=== PATIENT | female | born 1955 | race Caucasian/White ===

== ENCOUNTER → 2020-07-11 07:51 | Outpatient (BNVA) | payer MEDICARE, OTHER, SELFPAY | PROVIDERS: PCP Family Medicine; Visit Provider Family Medicine | DX: G37.9 Demyelinating disease of central nervous system, unspecified (principal); L89.323 Pressure ulcer of left buttock, stage 3 | CPT/HCPCS: 80053 ==

== ENCOUNTER 2020-07-18 06:00 | Outpatient (RCR) | payer MEDICARE, OTHER, SELFPAY | END 2020-07-25 23:59 | disposition home or self-care (01) | LOC: GPT 06:00 | PROVIDERS: PCP Family Medicine; Referring Provider Family Medicine; Visit Provider Family Medicine | DX: G37.9 Demyelinating disease of central nervous system, unspecified (principal) | CPT/HCPCS: 97032; 97110; 97112; 97161; 97530 ==

== ENCOUNTER 2020-07-26 06:00 | Outpatient (RCR) | payer MEDICARE, OTHER, SELFPAY | END 2020-08-24 23:59 | disposition home or self-care (01) | LOC: GPT 06:00 | PROVIDERS: PCP Family Medicine; Referring Provider Family Medicine; Visit Provider Family Medicine | DX: G37.9 Demyelinating disease of central nervous system, unspecified (principal) | CPT/HCPCS: 97110; 97112; 97116; 97164; 97530; 97760 ==

== ENCOUNTER → 2020-08-16 15:16 | Outpatient (BNVA) | payer MEDICARE, OTHER, SELFPAY | PROVIDERS: PCP Family Medicine; Visit Provider Nurse Practitioner Family | DX: R73.09 Other abnormal glucose (principal); L89.502 Pressure ulcer of unspecified ankle, stage 2; L89.312 Pressure ulcer of right buttock, stage 2 | CPT/HCPCS: 83036 ==

== ENCOUNTER → 2020-12-05 08:03 | Outpatient (BNVA) | payer MEDICARE, OTHER, SELFPAY | PROVIDERS: PCP Family Medicine; Visit Provider Specialist | DX: G95.0 Syringomyelia and syringobulbia (principal); G80.1 Spastic diplegic cerebral palsy; M54.9 Dorsalgia, unspecified; M54.2 Cervicalgia; F17.210 Nicotine dependence, cigarettes, uncomplicated | CPT/HCPCS: 99205 ==

== ENCOUNTER 2020-12-17 14:28 | Outpatient (CLI) | payer MEDICARE, OTHER, SELFPAY ==
--- NOTE | 2020-12-17 15:15 | MR_ITS ---
WS: [id number] MRI THORACIC SPINE WITHOUT CONTRAST TECHNIQUE: Sagittal T1, T2 and STIR imaging. Axial T2 imaging. Noncontrast imaging obtained. 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 FINDINGS: Mild thoracic curve. Moderate thoracic kyphosis. Bulbous syrinx within the thoracic cord extending fr om T2 through the conus. Associated marked thinning of the cord parenchyma. Irregular syrinx with sep tations in the mid and lower thoracic cord. Syrinx measures 6 x 6 mm in maximum AP by transverse dime nsion at the T5 level. Suggestion of dural scarring with adhesions in the lower thoracic canal. No acute compression fractures. Degenerative arthritis worse at T10-T11 with endplate sclerosis and l oss of disc space height. Tiny disc protrusions at T7-T11 with spondylitic changes. No high-grade dale tral canal stenosis. Mild central canal stenosis T10-11. Moderate facet arthropathy in the lower thor acic spine. Mild to moderate bony foraminal narrowing worse at T9-T10, bilateral T10-11 worse in the right, and r ight T11-12. MR/MR thoracic spin wo con* [id number] IMPRESSION: 1. Mild thoracic curve. Mild thoracic kyphosis. No acute compression fractures . 2. Bulbous syrinx extending from T2 through the conus with peripheral cord atr ophy. 3. Syrinx measures 6 x 6 mm AP by transverse at the T5 level in maximum dimens ion. 4. Irregular syrinx in the mid and distal thoracic cord with suggestion of dur al and arachnoid adhesions. Recommend correlation with history of prior trauma or thoracic cord tumor/treatment-related changes. 5. Degenerative disc disease worse at T10-T11 with endplate sclerosis and mild central canal stenosis. 6. Moderate facet arthropathy lower thoracic spine. 7. Mild to moderate bony foraminal narrowing described above.
--- NOTE | 2020-12-17 16:00 | MR_ITS ---
WS: [id number] MRI CERVICAL SPINE NONCONTRAST TECHNIQUE: Sagittal T1, T2 and STIR imaging. Axial T2, gradient, and fiesta imaging. 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 FINDINGS: Straightening of the normal cervical lordosis. Moderate spondylitic changes. Disc osteophyte complexe s worse at C3-C4 C4-C5 and C5-C6 with moderate central canal stenosis. Cord signal in the cervical sp ine is normal. Syrinx well be discussed on the thoracic spine MRI C2-C3: Mild left and no significant right foraminal narrowing. Spinal canal is patent. C3-C4: Disc osteophyte complex with moderate central canal stenosis and slight contact of the cervica l cord. Moderate bilateral bony foraminal narrowing. C4-C5: Disc osteophyte complex with endplate ridging. Moderate central canal stenosis. Moderate to se clark bilateral bony foraminal narrowing. Slight indentation on the cervical cord. C5-C6: Disc osteophyte complex with endplate ridging. Moderate central canal stenosis. Severe right g reater than left bony foraminal narrowing. Slight indentation on the cervical cord. C6-C7: Disc osteophyte complex with endplate ridging. Severe left and mild right bony foraminal narro wing. Shallow left pericentral protrusion. Spinal canal is patent. C7-T1: Disc osteophytic ridging eccentric to the left. Moderate left and no significant right foramin al narrowing. Spinal canal is patent. Small central disc protrusion T1-2 with slight effacement of the ventral thecal sac. Mild bilateral f oraminal narrowing. Small central protrusion T2-3. MR/MR cervical spin wo con* [id number] IMPRESSION: 1. Straightening of the normal cervical lordosis. Moderate spondylitic changes . 2. Moderate central canal stenosis C3-C4 C4-C5 and C5-C6 due to disc osteophyt e complexes with slight indentation on cervical cord. 3. Multilevel moderate to severe bony foraminal narrowing worse at bilateral C 3-4, bilateral C4-5, left C5-C6 and left C6-7.
--- NOTE | 2020-12-17 16:45 | MR_ITS ---
WS: [id number] MRI LUMBAR SPINE NONCONTRAST TECHNIQUE: Sagittal T1, T2 and STIR imaging. Axial T1 and T2 imaging. 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 FINDINGS: Counting performed from the craniocervical junction with only 4 lumbar type vertebral yuriy s. L5 is sacralized. Mild lumbar curve. No acute compression. Slight anterolisthesis L4 on L5. Syrinx visualized in the lo wer thoracic cord. Peripheral displacement of the cauda equina nerve rootlets throughout the lumbar t hecal sac consistent with arachnoiditis. Advanced degenerative disc disease at T10-T11 with endplate sclerosis. Small disc protrusions in the lower thoracic spine. L1-L2: No significant disc bulging. Spinal canal and foramen are patent. Mild facet arthropathy. L2-L3: Minimal annular bulging. Moderate facet arthropathy. Mild left and no significant right forami nal narrowing. Moderate facet arthropathy. L3-L4: Mild annular bulging. Moderate facet arthropathy. Spinal canal and foramen are patent. L4-L5: Grade 1 anterolisthesis L4 on L5. Mild disc bulging with osteophytic ridging. Mild central can al stenosis. Moderate facet arthropathy with small bilateral facet effusions. Mild left greater than right foraminal narrowing. L5-S1: L5 is sacralized. Spinal canal and foramen are patent. Left peripelvic renal cysts. MR/MR lumbar spine wo con* [id number] IMPRESSION: 1. Counting performed from the craniocervical junction. L5 is sacralized with 4 lumbar type vertebral bodies. 2. Arachnoiditis throughout the lumbar spine with peripheral displacement of t he cauda equina nerve rootlets. 3. Grade 1 anterolisthesis L4 on L5 with mild central canal stenosis. Mild lef t L5-S1 foraminal narrowing. 4. Moderate facet arthropathy L4-5 with bilateral facet effusions. This can be seen with chronic instability or inflammatory synovitis. 5. Disc desiccation with endplate sclerosis T10-T11 with mild anterior wedging . 6. Syrinx formation lower thoracic cord.
== END 2020-12-17 14:29 | disposition home or self-care (01) ==
LOC: RADSHAW 14:32
PROVIDERS: PCP Family Medicine; Visit Provider Specialist
DX: G95.0 Syringomyelia and syringobulbia (principal); M21.371 Foot drop, right foot; M21.372 Foot drop, left foot; M54.9 Dorsalgia, unspecified; R20.0 Anesthesia of skin; R20.2 Paresthesia of skin; M54.2 Cervicalgia; G03.9 Meningitis, unspecified; M48.061 Spinal stenosis, lumbar region without neurogenic claudication; M47.816 Spondylosis without myelopathy or radiculopathy, lumbar region; M48.02 Spinal stenosis, cervical region; M51.34 Other intervertebral disc degeneration, thoracic region; M47.814 Spondylosis without myelopathy or radiculopathy, thoracic region
CPT/HCPCS: 72141; 72146; 72148

== ENCOUNTER → 2021-01-03 14:03 | Outpatient (BNVA) | payer MEDICARE, OTHER, SELFPAY | PROVIDERS: PCP Family Medicine; Visit Provider Specialist | DX: G56.03 Carpal tunnel syndrome, bilateral upper limbs (principal); F17.210 Nicotine dependence, cigarettes, uncomplicated | CPT/HCPCS: 95910 ==

== ENCOUNTER → 2021-01-24 13:33 | Outpatient (BNVA) | payer MEDICARE, OTHER, SELFPAY | PROVIDERS: PCP Family Medicine; Visit Provider Specialist | DX: G24.8 Other dystonia (principal); G56.03 Carpal tunnel syndrome, bilateral upper limbs; G03.9 Meningitis, unspecified; G95.0 Syringomyelia and syringobulbia | CPT/HCPCS: 64642; 99214; 99215 ==

== ENCOUNTER → 2021-03-05 16:54 | Outpatient (BNVA) | payer MEDICARE, OTHER, SELFPAY | PROVIDERS: PCP Family Medicine; Visit Provider Nurse Practitioner Family | DX: E78.5 Hyperlipidemia, unspecified (principal); R73.09 Other abnormal glucose; B83.9 Helminthiasis, unspecified | CPT/HCPCS: 80053; 80061; 83036; 84443; 85025; 87177; 87209 ==

== ENCOUNTER → 2021-03-07 08:34 | Outpatient (BNVA) | payer MEDICARE, OTHER, SELFPAY | PROVIDERS: PCP Family Medicine; Visit Provider Nurse Practitioner Family | DX: B83.9 Helminthiasis, unspecified (principal) | CPT/HCPCS: 87177; 87209 ==

== ENCOUNTER → 2021-03-12 15:51 | Outpatient (BNVA) | payer MEDICARE, OTHER, SELFPAY | PROVIDERS: PCP Family Medicine | DX: L89.311 Pressure ulcer of right buttock, stage 1 (principal) | CPT/HCPCS: 80053; 84134; 85025 ==

== ENCOUNTER → 2021-04-18 12:57 | Outpatient (BNVA) | payer MEDICARE, OTHER, SELFPAY | PROVIDERS: PCP Family Medicine; Visit Provider Specialist | DX: G24.8 Other dystonia (principal); G56.03 Carpal tunnel syndrome, bilateral upper limbs; G95.0 Syringomyelia and syringobulbia; M50.00 Cervical disc disorder with myelopathy, unspecified cervical region | CPT/HCPCS: 64642; 99214; J0585 ==

== ENCOUNTER → 2021-04-25 10:01 | Outpatient (BNVA) | payer MEDICARE, OTHER, SELFPAY | PROVIDERS: PCP Family Medicine; Visit Provider Physician Assistant | DX: M50.00 Cervical disc disorder with myelopathy, unspecified cervical region (principal); M47.892 Other spondylosis, cervical region; M50.320 Other cervical disc degeneration, mid-cervical region, unspecified level | CPT/HCPCS: 72050 ==

== ENCOUNTER → 2021-07-11 12:17 | Outpatient (BNVA) | payer MEDICARE, OTHER, SELFPAY | PROVIDERS: PCP Family Medicine; Visit Provider Specialist | DX: G24.8 Other dystonia (principal); G80.1 Spastic diplegic cerebral palsy; G95.9 Disease of spinal cord, unspecified; M54.12 Radiculopathy, cervical region; G95.0 Syringomyelia and syringobulbia; L89.312 Pressure ulcer of right buttock, stage 2; F17.210 Nicotine dependence, cigarettes, uncomplicated | CPT/HCPCS: 64642; 64643; 99212; J0585 ==

== ENCOUNTER 2021-07-31 13:55 | Emergency (ER) | payer MEDICARE, OTHER, SELFPAY ==
[2021-07-31 14:45] VITALS: BP 103/58; PULSE 116; RESP 15; TEMP 37.8; O2SAT 97; BMI 28.7
--- NOTE | 2021-07-31 17:02 | ED_ITS ---
HPI - Fever General: Chief Complaint: Fever Stated Complaint: fever/headache/sorethroat/burning sense in hands Time Seen by Provider: 07/31/21 17:02 History of Present Illness: Ms. 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 A precise timeline of worsening is somewhat unclear as the patient has felt ill for a prolonged period of time. Perhaps over the past week this has been worse. She has noticed increased weakness and fatigue as well as generalized malaise. She has noted that her wound seems to smell more and is making her concerned over infection. Overall symptoms have been worsening. Intensity is severe. No other specific changes in health, exacerbating, or alleviating factors identified. Onset (ago): day(s) Context: other Review of Systems General: Reports: 10 or more systems reviewed and unremarkable except in HPI and below PFSH ED PFSH: Medical History COPD (chronic obstructive pulmonary disease) Glass eye right Hyperlipidemia Syrinx of spinal cord Surgical History H/O hysterectomy for benign disease History of cholecystectomy Stented coronary artery Social History Smoking and tobacco status: current every day smoker cigarettes Packs smoked per day: 0.5 [ Other cigarette details: no additives] Alcohol intake: current Alcohol intake frequency: holidays/special occasions only Physical Exam Const: COMMON NORMALS: alert GENERAL APPEARANCE: cooperative and ill appearing HENMT: COMMON NORMALS: normocephalic and atraumatic HEAD & SCALP: normocephalic and atraumatic Eye: COMMON NORMALS: conjunctivae normal CONJUNCTIVA: Yes conjunctivae normal SCLERA: sclerae normal Neck/C-Spine: COMMON NORMALS: supple GENERAL: Yes trachea midline Resp: COMMON NORMALS: normal respiratory effort EFFORT & INSPECTION: Yes able to speak in complete sentences AUSCULTATION: wheezes (End expiratory, trace R>L) and diminished lung sounds Cardio: COMMON NORMALS: regular rhythm RATE: tachycardic RHYTHM: regular rhythm GI: COMMON NORMALS: Soft to palpation PALPATION: Yes Soft to palpation and No Tenderness to palpation present (GI) PERCUSSION: normal to percussion Back/Pelvis: OTHER: Approximately 4 cm x 4 cm right inferior medial gluteal ulceration with exposed muscle and foul-smelling purulent drainage. There is surrounding erythema. Extremity: GENERAL: Yes normal exam except as noted and No edema Neuro: COMMON NORMALS: moves all extremities SENSORIUM/ORIENTATION: Yes alert and No Orientation impaired OTHER: Reported baseline bilateral lower extremity changes. Psych: COMMON NORMALS: mental status grossly normal and Normal thought process present THOUGHT PROCESS: Normal thought process present Course ED course: - Patient was seen and evaluated by me at bedside - Patient placed on cardiac monitors, IV access obtained - Initial evaluation notable for exam as above - Labs and xrays personally interpreted by me - Fluids and antibiotics ordered during ED course including Vanco, Zosyn, clinda mycin (clinda after seeing CT images) - Labs notable for leukocytosis, normocytic anemia. Normal lactate. Metabolic panel with sodium 128, otherwise intravascular dehydration with preserved renal function. Transaminitis likely secondary to overall illness. 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 Blood pressure did decrease and in discussion with accepting physician peripheral vasopressor ordered which patient had good response to. 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 - The results of ED evaluation were discussed with the patient including plan for transfer due to requirement for level of care not available if discharged to prevent significant worsening/deterioration. - [facility] accepted patient to ICU for definitive surgical management and medical management. - Given time critical nature of necrotizing fasciitis patient will be transferred via air EMS to prevent/reduce likelihood of life-threatening deterioration or progression of disease. Note: Click bubbles or prepopulated gaona in note writing are used for assistance with data collection and billing and are inherently more limited than narrative and other text portions of this note. Please use narrative for additional clinical history and defer to narrative/free test for any case of contradictory information. If information appears in only free text or click bubble it should be considered present or absent as reported. Please contact note repairer typewriter for clarifications of clinical information or contradictory information. MDM is a brief summary, contradictory or erroneous seeming information should be clarified and full note should be reviewed. Vital Signs: Vital signs: Vital Signs Temperature 98.5 F 07/31/21 18:10 Pulse Rate 83 07/31/21 22:42 Respiratory Rate 19 H 07/31/21 22:42 Blood Pressure 160/70 07/31/21 22:42 Pulse Oximetry 96 07/31/21 22:42 MDM - Fever Medical Decision Making 66-year-old lady with history of spinal cord pathology and known right chronic buttock wound presenting with worsening drainage and foul-smelling. Patient fou nd to have necrotizing fasciitis with Minh gangrene and septic shock. Started on pressors and transferred to [facility] for definitive surgical management. Medical Records I reviewed the patient's medical records. Lab Data I reviewed the patient's lab results. : 07/31/21 17:55 07/31/21 17:55 Radiology Impressions Abdomen/Pelvis CT 07/31/21 18:59 IMPRESSION: 1. Large soft tissue ulceration in the subcutaneous fat of the right buttock and proximal posteromedial right thigh. 2. Soft tissue swelling surrounding the ulceration consistent with cellulitis. 3. Inflammation in the inferior portion of the right gluteus muscle with soft tissue emphysema consistent with myositis and possible necrotizing fasciitis. 4. Soft tissue emphysema in the right perineum extending to the right labia consistent with Minh's gangrene. 5. Right perirectal soft tissue emphysema extending superiorly between the rectum and gluteus bear consistent with necrotizing fasciitis. ADDENDUM: 07/31/212034 THIS REPORT CONTAINS FINDINGS THAT MAY BE CRITICAL TO PATIENT CARE. The findings were verbally communicated via telephone conference with Mason Yoo at 8:33 PM CDT on 07/31/2021. The findings were acknowledged and understood. Chest X-Ray 07/31/21 18:59 IMPRESSION: No acute findings. Laboratory Results WBC 27.9 10^3/uL (4.0-10.0) H 07/31/21 17:55 RBC 3.74 10^6/uL (4.1-5.3) L 07/31/21 17:55 Hgb 10.5 g/dL (11.5-15.3) L 07/31/21 17:55 Hct 30.8 % (37.0-47.0) L 07/31/21 17:55 MCV 82.4 fl (81-99) 07/31/21 17:55 MCH 28.1 pg (28.0-34.0) 07/31/21 17:55 MCHC 34.1 g/dL (30.0-36.0) 07/31/21 17:55 RDW 15.4 % (12.1-15.1) H 07/31/21 17:55 Plt Count 476 10^3/cmm (130-400) H 07/31/21 17:55 MPV 9.6 fL (7.4-10.4) 07/31/21 17:55 Neut % (Auto) 92.5 % 07/31/21 17:55 Lymph % (Auto) 2.5 % 07/31/21 17:55 [place] % (Auto) 3.9 % 07/31/21 17:55 Eos % (Auto) 0.0 % 07/31/21 17:55 Baso % (Auto) 0.1 % 07/31/21 17:55 Neut # (Auto) 25.76 10^3/uL (1.8-7.7) H 07/31/21 17:55 Lymph # (Auto) 0.7 10^3/uL (0.8-4.8) L 07/31/21 17:55 [place] # (Auto) 1.1 10^3/uL (0.2-0.9) H 07/31/21 17:55 Eos # (Auto) 0.0 10^3/uL (0.0-0.8) 07/31/21 17:55 Baso # (Auto) 0.0 10^3/uL (0.0-0.1) 07/31/21 17:55 Nucleated RBC % (auto) 0 % 07/31/21 17:55 Nucleated RBCs # 0.0 /100WBC 07/31/21 17:55 ESR 125 mm/hr (0-15) H 07/31/21 17:55 Sodium 128 mmol/L (136-145) L 07/31/21 17:55 Potassium 4.0 mmol/L (3.5-5.1) 07/31/21 17:55 Chloride 93 mmol/L (98-107) L 07/31/21 17:55 Carbon Dioxide 20 mmol/L (22-29) L 07/31/21 17:55 Anion Gap 19.0 (5-19) 07/31/21 17:55 BUN 24 mg/dL (8-23) H 07/31/21 17:55 Creatinine 1.0 mg/dL (0.5-0.9) H 07/31/21 17:55 GFR Calculation 55.3 mL/min (90-130) L 07/31/21 17:55 Glucose 93 mg/dL (65-115) 07/31/21 17:55 Calculated Osmolality 270 mOsm/kg (285-295) L 07/31/21 17:55 Lactic Acid 1.4 mmol/L (0.5-2.2) 07/31/21 17:55 Calcium 9.1 mg/dL (8.5-10.5) 07/31/21 17:55 Total Bilirubin 0.5 mg/dL (0.15-1.2) 07/31/21 17:55 AST 44 U/L (0-32) H 07/31/21 17:55 ALT 34 U/L (0-33) H 07/31/21 17:55 Alkaline Phosphatase 129 IU/L (35-105) H 07/31/21 17:55 C-Reactive Protein 366.1 mg/L (0.0-4.9) H 07/31/21 17:55 Total Protein 6.6 g/dL (6.6-8.7) 07/31/21 17:55 Albumin 2.8 g/dL (3.5-5.2) L 07/31/21 17:55 Globulin 3.8 g/dL (1.3-4.6) 07/31/21 17:55 Coronavirus 229E (PCR) Not detected (NOT DETECT) 07/31/21 17:57 SARS-CoV-2 (PCR) Not detected (NOT DETECT) 07/31/21 17:57 Critical Care Time Critical Care Time: Critical Care Time: Yes Total Critical Care Time: 80 Attestation: Due to a high probability of clinically significant, possibly life threatening deterioration, the patient required my highest level of attention and preparedness to intervene emergently and I personally spent this critical care time directly and personally managing the patient. This critical care time included obtaining a history; examining the patient; pulse oximetry; ordering and review of laboratory and imaging studies; arranging urgent treatment with development of a management plan; evaluation of patient's response to treatment; frequent reassessment; and, discussions with other providers as applicable. It was exclusive of separately billable procedures. 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
[2021-07-31] MEDS: sodium chloride 0.9% 1,000 ML 999 ML IV ×2 (18:06→19:25)
[2021-07-31 18:10] VITALS: BP 88/48; PULSE 86; RESP 18; TEMP 36.9; O2SAT 96
[2021-07-31 18:32] LABS: Basophils % 0.1 %; Hematocrit 30.8 % (37.0-47.0); Hemoglobin 10.5 g/dL (11.5-15.3); Lymphocytes # 0.7 10^3/uL (0.8-4.8); Lymphocytes % 2.5 %; Mean Corpuscular HGB Conc 34.1 g/dL (30.0-36.0); Mean Corpuscular Hemoglobin 28.1 pg (28.0-34.0); Mean Corpuscular Volume 82.4 fl (81-99); Mean Platelet Volume 9.6 fL (7.4-10.4); Monocytes # 1.1 10^3/uL (0.2-0.9); Monocytes % 3.9 %; Neutrophils # 25.76 10^3/uL (1.8-7.7); Neutrophils % 92.5 %; Nucleated Red Blood Cells % 0 %; Platelet Count 476 10^3/cmm (130-400); Red Blood Count 3.74 10^6/uL (4.1-5.3); Red Cell Distribution Width 15.4 % (12.1-15.1); White Blood Count 27.9 10^3/uL (4.0-10.0)
[2021-07-31 18:42] LABS: Alanine Aminotransferase 34 U/L (0-33); Albumin Level 2.8 g/dL (3.5-5.2); Alkaline Phosphatase 129 IU/L (35-105); Aspartate Amino Transferase 44 U/L (0-32); Blood Urea Nitrogen 24 mg/dL (8-23); Calcium 9.1 mg/dL (8.5-10.5); Carbon Dioxide 20 mmol/L (22-29); Chloride 93 mmol/L (98-107); Globulin 3.8 g/dL (1.3-4.6); Glomerular Filtration Rate 55.3 mL/min (90-130); Glucose 93 mg/dL (65-115); Osmolality Calculated 270 mOsm/kg (285-295); Sodium 128 mmol/L (136-145); Total Bilirubin 0.5 mg/dL (0.15-1.2); Total Protein 6.6 g/dL (6.6-8.7)
[2021-07-31 18:43] LABS: Lactic Sepsis W/Reflex 1.4 mmol/L (0.5-2.2)
[2021-07-31 18:55] LABS: Slide Review Slide Review Perform
--- NOTE | 2021-07-31 18:59 | XRR_ITS ---
PROCEDURE INFORMATION: Exam: XR Chest Exam date and time: 07/31/2021 7:11 PM Age: 66 years old Clinical indication: Fever TECHNIQUE: Imaging protocol: XR of the chest. Views: 1 view. COMPARISON: CR XR cervical spine 4-5V [id number] 04/25/2021 10:08 AM FINDINGS: Lungs: Unremarkable. No consolidation. Pleural spaces: Unremarkable. No pleural effusion. No pneumothorax. Heart/Mediastinum: Unremarkable. No cardiomegaly. Vasculature: Calcification of the thoracic aorta and/or great vessels consistent with atherosclerotic vessel disease. Bones/joints: Unremarkable. XR/XR chest 1V portable [id number] IMPRESSION: No acute findings.
--- NOTE | 2021-07-31 18:59 | CTR_ITS ---
PROCEDURE INFORMATION: Exam: CT Abdomen And Pelvis With Contrast Exam date and time: 07/31/2021 8:02 PM Age: 66 years old Clinical indication: Fever; Patient HX: Wound in right gluteal muscle; Additional info: R gluteal wound, ? deep tracking, sirs TECHNIQUE: Imaging protocol: Computed tomography of the abdomen and pelvis with contrast. Radiation optimization: All CT scans at this facility use at least one of these dose optimization techniques: automated exposure control; mA and/or kV adjustment per patient size (includes targeted exams where dose is matched to clinical indication); or iterative reconstruction. Contrast material: VISI; Contrast volume: 95 ml; Contrast route: INTRAVENOUS (IV); COMPARISON: MR lumbar spine wo con* [id number] 12/17/2020 5:21 PM RADIATION DOSE METRICS: Total DLP (mGy-cm): 1069.52 FINDINGS: Lungs: Bibasilar discoid atelectasis and/or scarring. Liver: Normal. No mass. Gallbladder and bile ducts: Surgical clips in the gallbladder fossa consistent with cholecystectomy. Pancreas: Normal. No ductal dilation. Spleen: Normal. No splenomegaly. Adrenal glands: Left adrenal hyperplasia. Kidneys and ureters: Normal. No hydronephrosis. Stomach and bowel: Unremarkable. No obstruction. No mucosal thickening. Appendix: No evidence of appendicitis. Intraperitoneal space: Unremarkable. No free air. No significant fluid collection. Vasculature: Unremarkable. No abdominal aortic aneurysm. Lymph nodes: Unremarkable. No enlarged lymph nodes. Urinary bladder: Unremarkable as visualized. Reproductive: Unremarkable as visualized. Bones/joints: Severe lower lumbar facet degenerative change. Multilevel severe degenerative disc disease and spondylosis with Modic type 3 sclerotic endplate degenerative changes involving T11-T12 and T12-L1. Soft tissues: Large soft tissue ulceration in the subcutaneous fat of the right buttock and proximal posteromedial right thigh. Soft tissue swelling surrounding the ulceration consistent with cellulitis. Inflammation in the inferior portion of the right gluteus muscle with soft tissue emphysema consistent with myositis and possible necrotizing fasciitis. Soft tissue emphysema in the right perineum extending to the right labia consistent with Minh's gangrene. Right perirectal soft tissue emphysema extending superiorly between the rectum and gluteus bear consistent with necrotizing fasciitis. CT/CT abdomen pelvis w con* [id number] IMPRESSION: 1. Large soft tissue ulceration in the subcutaneous fat of the right buttock and proximal posteromedial right thigh. 2. Soft tissue swelling surrounding the ulceration consistent with cellulitis. 3. Inflammation in the inferior portion of the right gluteus muscle with soft tissue emphysema consistent with myositis and possible necrotizing fasciitis. 4. Soft tissue emphysema in the right perineum extending to the right labia consistent with Minh's gangrene. 5. Right perirectal soft tissue emphysema extending superiorly between the rectum and gluteus bear consistent with necrotizing fasciitis.
[2021-07-31] MEDS: piperacillin-tazobactam 4.5 GM in sodium chloride 0.9% (plus) 50 ML IV (19:25)
[2021-07-31 19:29] LABS: Erythrocyte Sedimentation Rate 125 mm/hr (0-15)
[2021-07-31] MEDS: vancomycin 1,500 MG/300 ML PIGGYBACK 200 MG IV (19:47)
[2021-07-31 20:07] LABS: Adenovirus Not Detected (NOT DETECT); Chlamydia Pneumoniae Not Detected (NOT DETECT); Coronavirus 229E,HKU1,NL63,OC4 Not Detected (NOT DETECT); Human Metapneumovirus Not Detected (NOT DETECT); Human Rhinovirus/Enterovirus Not Detected (NOT DETECT); Influenza A Not Detected (NOT DETECT); Influenza A H1 Not Detected (NOT DETECT); Influenza A H1-2009 Not Detected (NOT DETECT); Influenza A H3 Not Detected (NOT DETECT); Influenza B Not Detected (NOT DETECT); Mycoplasma Pneumoniae Not Detected (NOT DETECT); Parainfluenza Virus Type 1 Not Detected (NOT DETECT); Parainfluenza Virus Type 2 Not Detected (NOT DETECT); Parainfluenza Virus Type 3 Not Detected (NOT DETECT); Parainfluenza Virus Type 4 Not Detected (NOT DETECT); Respiratory Syncytial Virus A Not Detected (NOT DETECT); Respiratory Syncytial Virus B Not Detected (NOT DETECT); SARS-COV-2 Not Detected (NOT DETECT)
[2021-07-31] MEDS: iodixanol 320 mg/mL 100mL Btl IV (20:18)
[2021-07-31 20:25] LABS: C Reactive Protein 366.1 mg/L (0.0-4.9)
[2021-07-31] MEDS: clindamycin 600 MG/50 ML PREMIX 100 MG IV (21:43)
[2021-07-31 21:57] VITALS: BP 70/44; PULSE 87; RESP 21; O2SAT 94
[2021-07-31 22:37] VITALS: BP 160/70; PULSE 85; RESP 18; O2SAT 96
[2021-07-31 22:42] VITALS: BP 160/70; PULSE 83; RESP 19; O2SAT 96
== END 2021-07-31 23:06 | disposition short-term general hospital (02) ==
PROVIDERS: Emergency Provider Emergency Medicine; PCP Family Medicine
DX: N76.89 Other specified inflammation of vagina and vulva (principal); M72.6 Necrotizing fasciitis; R65.21 Severe sepsis with septic shock; L89.319 Pressure ulcer of right buttock, unspecified stage; J44.9 Chronic obstructive pulmonary disease, unspecified; E78.5 Hyperlipidemia, unspecified; F17.210 Nicotine dependence, cigarettes, uncomplicated
CPT/HCPCS: 71045; 74177; 80053; 83605; 85025; 85651; 86140; 87040; 87070; 87075; 87077; 87186; 87205; 87635; 96365; 96367; 99285; J2543; J3370; J3490; J7030; Q9967

== ENCOUNTER 2021-08-30 16:03 | Outpatient (CLI) | payer MEDICARE, OTHER, SELFPAY ==
--- NOTE | 2021-08-30 16:26 | CTR_ITS ---
PROCEDURE INFORMATION: Exam: CT Abdomen And Pelvis Without And With Contrast Exam date and time: 08/30/2021 4:52 PM Age: 66 years old Clinical indication: Condition or disease; Abscess; Abscess location: R thigh/buttocks; Prior surgery; Surgery date: 1-6 months; Surgery type: Debridement and drain; Patient HX: Open wound R buttocks/thigh; Additional info: Open wound of buttocks TECHNIQUE: Imaging protocol: Computed tomography of the abdomen and pelvis without and with contrast. Sagittal and coronal reformatted images were created and reviewed. Radiation optimization: All CT scans at this facility use at least one of these dose optimization techniques: automated exposure control; mA and/or kV adjustment per patient size (includes targeted exams where dose is matched to clinical indication); or iterative reconstruction. Contrast material: OMNI 300; Contrast volume: 50 ml; Contrast route: INTRAVENOUS (IV); COMPARISON: CT abdomen pelvis w con* [id number] 07/31/2021 8:02 PM RADIATION DOSE METRICS: Total DLP (mGy-cm): 1908.78 FINDINGS: Lungs: There is linear scarring in right and left lower lobes. Pleural spaces: No pleural effusion. Heart: Visualized portions of the heart are mildly enlarged. Moderate atherosclerotic calcification in the visualized coronary arteries. Liver: The liver is unremarkable. Gallbladder and bile ducts: Stable findings consistent with a previous cholecystectomy. No biliary ductal dilatation. Pancreas: The pancreas is unremarkable. No pancreatic ductal dilatation. Spleen: The spleen is unremarkable. Adrenal glands: The right adrenal gland is unremarkable. Two low density nodules in the left adrenal gland. Hounsfield units on precontrast images are consistent with adenomas. The larger of these measures 1.7 x 0.9 cm (series 2, image 18), findings are stable. Kidneys and ureters: Stable simple cyst in the right kidney measuring 1.8 cm. 2.6 x 0.9 x 0.9 cm soft tissue mass in the distal left ureter extending through the left ureterovesicular junction, stable in size (series 601, image 32 and series 3, images 58-63). Interval development of moderate to severe left hydroureteronephrosis secondary to obstruction by the mass. The right kidney is unremarkable. The right ureter is unremarkable. Stomach and bowel: Unremarkable. No obstruction. No mucosal thickening. Appendix: The appendix is visualized and is unremarkable. No findings to suggest acute appendicitis. Intraperitoneal space: No free intraperitoneal air. No ascites. No loculated fluid collections to suggest an abscess. Vasculature: Stable moderate atherosclerotic calcifications in the visualized arteries. No evidence for aortic aneurysm or aortic dissection. Hepatic veins, portal veins, splenic vein, and SMV are patent. Lymph nodes: No lymphadenopathy. Urinary bladder: The bladder is unremarkable. Reproductive: Stable changes consistent with a previous hysterectomy. The ovaries are not definitely visualized, not an expected in a postmenopausal female. This may be due to ovarian atrophy. Alternatively, the patient may have had a previous bilateral oophorectomy. Findings are stable. Bones/joints: Mild degenerative changes at both the right and left hips. Mild degenerative changes of the right and left sacroiliac joints. Multilevel degenerative changes of varying severity in the visualized spine. No lytic or sclerotic bony lesions. Soft tissues: Redemonstration of a large decubitus ulcer in the lower right gluteal subcutaneous tissues extending anterolaterally into the lower right gluteus bear muscle and the lateral biceps femoris muscle and anteromedially into the right peroneal soft tissues. The size of the ulcer is overall stable, however there is is decreasing subcutaneous and soft tissue inflammation and significant decrease in subcutaneous and soft tissue emphysema. CT/CT abdomen pelvis wo/w [id number] IMPRESSION: 1. Stable soft tissue mass in the distal left ureter extending through the left ureterovesicular junction, concerning for a ureteral lesion. Interval development of moderate to severe left hydroureteronephrosis secondary to obstruction by the mass. 2. Redemonstration of a large decubitus ulcer in the lower right gluteal subcutaneous tissues extending anterolaterally into the lower right gluteus bear muscle and the lateral biceps femoris muscle and anteromedially into the right peroneal soft tissues. The size of the ulcer is overall stable, however there is is decreasing subcutaneous and soft tissue inflammation and significant decrease in subcutaneous and soft tissue emphysema. 3. Two left adrenal adenomas are stable in size. 4. Incidental/nonacute findings are listed in the report. COMMENTS: Consistent with the [employer]'s Incidental Findings Committee white paper (J Am Sterling Radiol 2018): Any incidental renal lesion less than 1 cm or classified as too small to characterize, or any incidental cystic renal lesion characterized as simple-appearing, is likely benign. No follow-up imaging is recommended for these lesions per consensus recommendations based on imaging criteria.
[2021-08-30] MEDS: iohexol 300 mg/mL 50 mL Btl IV (16:55)
== END 2021-08-30 16:04 | disposition home or self-care (01) ==
LOC: RAD 16:06
PROVIDERS: PCP Family Medicine; Visit Provider Thoracic Surgery (Cardiothoracic Vascular Surgery)
DX: L89.319 Pressure ulcer of right buttock, unspecified stage (principal); N28.89 Other specified disorders of kidney and ureter
CPT/HCPCS: 74178; 82565; 84520

== ENCOUNTER → 2021-09-26 09:35 | Outpatient (BNVA) | payer MEDICARE, OTHER, SELFPAY | PROVIDERS: PCP Family Medicine; Visit Provider Nurse Practitioner Family | DX: I96 Gangrene, not elsewhere classified (principal); L89.312 Pressure ulcer of right buttock, stage 2 | CPT/HCPCS: 11042; 11045; 87070; 87077; 87176; 87186; 87205; 99212 ==

== ENCOUNTER → 2021-09-27 11:03 | Outpatient (BNVA) | payer MEDICARE, OTHER, SELFPAY | PROVIDERS: PCP Family Medicine; Visit Provider Thoracic Surgery (Cardiothoracic Vascular Surgery) | DX: L89.890 Pressure ulcer of other site, unstageable (principal); N76.89 Other specified inflammation of vagina and vulva; L89.312 Pressure ulcer of right buttock, stage 2; L89.502 Pressure ulcer of unspecified ankle, stage 2 | CPT/HCPCS: 73630; 80053; 85025 ==

== ENCOUNTER → 2021-10-02 09:38 | Outpatient (BNVA) | payer MEDICARE, OTHER, SELFPAY | PROVIDERS: PCP Family Medicine; Visit Provider Nurse Practitioner Family | DX: I96 Gangrene, not elsewhere classified (principal); L98.492 Non-pressure chronic ulcer of skin of other sites with fat layer exposed; L89.323 Pressure ulcer of left buttock, stage 3 | CPT/HCPCS: 11043; 11046; 80053; 85025; 97605; A6237; A6250 ==

== ENCOUNTER → 2021-10-03 13:15 | Outpatient (BNVA) | payer MEDICARE, OTHER, SELFPAY | PROVIDERS: PCP Family Medicine; Visit Provider Specialist | DX: G80.1 Spastic diplegic cerebral palsy (principal); G95.0 Syringomyelia and syringobulbia; G24.8 Other dystonia | CPT/HCPCS: 64642; 99213; J0585 ==

== ENCOUNTER → 2021-10-17 08:50 | Outpatient (BNVA) | payer MEDICARE, OTHER, SELFPAY | PROVIDERS: PCP Family Medicine; Visit Provider Nurse Practitioner Family | DX: I96 Gangrene, not elsewhere classified (principal); L89.893 Pressure ulcer of other site, stage 3; L89.314 Pressure ulcer of right buttock, stage 4; L89.323 Pressure ulcer of left buttock, stage 3 | CPT/HCPCS: 11042; 11045; 80053; 85025; 86140; 87040; 97606; A6237; A6250 ==

== ENCOUNTER 2021-10-17 11:00 | Outpatient (CLI) | payer MEDICARE, OTHER, SELFPAY ==
[2021-10-17 11:33] LABS: Basophils % 0.3 %; Eosinophils # 0.2 10^3/uL (0.0-0.8); Eosinophils % 1.6 %; Hematocrit 29.6 % (37.0-47.0); Hemoglobin 9.2 g/dL (11.5-15.3); Lymphocytes # 2.3 10^3/uL (0.8-4.8); Lymphocytes % 16.4 %; Mean Corpuscular HGB Conc 31.1 g/dL (30.0-36.0); Mean Corpuscular Hemoglobin 25.1 pg (28.0-34.0); Mean Corpuscular Volume 80.9 fl (81-99); Mean Platelet Volume 8.3 fL (7.4-10.4); Monocytes # 1.4 10^3/uL (0.2-0.9); Monocytes % 10.2 %; Neutrophils # 9.72 10^3/uL (1.8-7.7); Nucleated Red Blood Cells % 0 %; Platelet Count 829 10^3/cmm (130-400); Red Blood Count 3.66 10^6/uL (4.1-5.3); Red Cell Distribution Width 18.4 % (12.1-15.1); White Blood Count 13.7 10^3/uL (4.0-10.0)
[2021-10-17 11:50] LABS: Alanine Aminotransferase 24 U/L (0-33); Albumin Level 2.8 g/dL (3.5-5.2); Alkaline Phosphatase 99 IU/L (35-105); Anion Gap 16.9 (5-19); Aspartate Amino Transferase 19 U/L (0-32); Blood Urea Nitrogen 25 mg/dL (8-23); C Reactive Protein 99.3 mg/L (0.0-4.9); Calcium 8.1 mg/dL (8.5-10.5); Carbon Dioxide 24 mmol/L (22-29); Chloride 98 mmol/L (98-107); Globulin 4.6 g/dL (1.3-4.6); Glomerular Filtration Rate 99.7 mL/min (90-130); Glucose 116 mg/dL (65-115); Osmolality Calculated 285 mOsm/kg (285-295); Potassium 3.9 mmol/L (3.5-5.1); Sodium 135 mmol/L (136-145); Total Bilirubin 0.2 mg/dL (0.15-1.2); Total Protein 7.4 g/dL (6.6-8.7)
== END 2021-10-17 11:01 | disposition home or self-care (01) ==
LOC: LAB 11:06
PROVIDERS: PCP Family Medicine; Visit Provider Thoracic Surgery (Cardiothoracic Vascular Surgery)
DX: I96 Gangrene, not elsewhere classified (principal); L89.323 Pressure ulcer of left buttock, stage 3; L89.314 Pressure ulcer of right buttock, stage 4; L89.893 Pressure ulcer of other site, stage 3
CPT/HCPCS: 11042; 11045; 80053; 85025; 86140; 87040; 97606

== ENCOUNTER 2021-11-01 07:22 | Outpatient (CLI) | payer MEDICARE, OTHER, SELFPAY ==
--- NOTE | 2021-11-01 10:00 | NM_ITS ---
WS: [id number] NUCLEAR MEDICINE BONE SCAN Radiopharmaceutical: 25.3 Tc-99m MDP mCi IV Injection site: RIGHT antecubital Postinjection imaging delay: 1 hr CLINICAL INFORMATION: Non healing wound left buttock with bone exposure COMPARISON: CT abdomen pelvis August 30, 2021 FINDINGS: Bone lesions: Focal asymmetric uptake in the RIGHT ischium and extending about the RIGHT acetabulum s uspicious for osteomyelitis. This is adjacent to the fistulous tract and ulceration on the prior CT. Soft tissue contours: Normal. Kidneys: Normal. Other findings: Degenerative type uptake in the mid and lower thoracic spine and bilateral knees. Deg enerative type uptake in the AC joints bilaterally. NM/NM bone scan whole body* [id number] IMPRESSION: Focal bony uptake in the RIGHT ischium and extending about the RIGHT acetabulum suspicious for osteomyelitis. This is adjacent to the fistulous tract seen on the prior CT. This could be further evaluated with MRI without and with gadolin ium enhancement for more specificity. 3 phase bone scan would alikely be of bliss ited utility considering recent debridement
== END 2021-11-01 07:23 | disposition home or self-care (01) ==
PROVIDERS: PCP Family Medicine; Visit Provider Thoracic Surgery (Cardiothoracic Vascular Surgery)
DX: L89.323 Pressure ulcer of left buttock, stage 3 (principal)
CPT/HCPCS: 78306; A9561

== ENCOUNTER 2021-11-01 07:29 | Outpatient (CLI) | payer MEDICARE, OTHER, SELFPAY ==
--- NOTE | 2021-11-01 08:00 | USCV_ITS ---
Paula Rivera Age: 66 Gender: F : 1955 Exam Date: 11/01/2021 07:51 Ordering Phys: Richelle Urias DO Technologist: Exam Location: [facility] – [place] Indication: pad Risk Factors: Previous Vascular Surgery: RIGHT LEFT BP: 100.0 / 65.00 BP: 107.0/ 69.00 0 0 Waveform Velocity (cm/s) Velocity (cm/s) Waveform Triphasic 119.6 Iliac Prox 111.7 Biphasic Biphasic 124.3 Iliac Mid 119.6 Triphasic Biphasic 128.9 Iliac Distal 120.9 Biphasic Biphasic 129.0 SOFTWARE ENGINEERING ASSOCIATE MANAGER 110.4 Biphasic Triphasic 110.3 SFA Prox 103.9 Triphasic Triphasic 127.4 SFA Mid 113.1 Triphasic Biphasic SFA Dist Triphasic 108.8 90.7 Biphasic 66.4 POP 57.8 Biphasic Biphasic 64.0 SUBSTATION MAINTENANCE TECHNICIAN 30.7 Biphasic Biphasic 60.5 DPA 68.4 Biphasic 1.1 CHERYL 1.1 FINDINGS Resting CHERYL was 1.1 bilaterally Near normal arterial Doppler waveforms and velocities bilaterally Mild diffuse plaques in the iliac and femoral arteries bilaterally CONCLUSIONS Mild diffuse plaques in the iliac and femoral arteries bilaterally. Normal resting ABIs bilaterally No significant arterial obstruction, based on the above findings. Dr Pooja Almonte MD [facility] (Electronically Signed) Final Date: 05 November 2021 20:54 S
--- NOTE | 2021-11-01 10:20 | XR_ITS ---
WS: [id number] PELVIS: AP VIEW SUBMITTED HISTORY: BONE SCAN COMPARISON COMPARISON: Bone scan 11/01/2021. Focal cortical defect within the RIGHT ischium corresponds to the abnormality on the bone scan. There is also mild diffuse decreased attenuation within the inferior RIGHT pubic ramus. Mild bilateral lenny rowing of the hip joints. XR/XR pelvis 1-2V* [id number] IMPRESSION: Cortical defect along the inferior RIGHT ischium. Focal area of osteomyelitis a djacent to the previously described fistulous tract is suspected. This area is positive on bone scan.
--- NOTE | 2021-11-01 10:21 | XR_ITS ---
WS: [id number] THORACIC SPINE TECHNIQUE: AP and lateral views are performed. HISTORY: BONE SCAN COMPARISON COMPARISON: Bone scan 11/01/2021 Disc space narrowing with advancing degenerative spondylitic changes throughout the mid and lower tho racic spine. Sclerotic findings within T10 and T11. Prior MRI demonstrated advancing degenerative dis c disease and spondylosis. Osteophyte formation with asymmetric disc space narrowing evident at T9-10 and T10-11. XR/XR thoracic spine 2V [id number] IMPRESSION: Advancing spondylitic changes and degenerative findings from T9 to T11. Prior M RI from 12/17/2020 demonstrated endplate sclerosis and central stenosis at this level.
== END 2021-11-01 07:30 | disposition home or self-care (01) ==
LOC: RAD 07:32
PROVIDERS: PCP Family Medicine; Visit Provider Emergency Medicine
DX: M79.604 Pain in right leg (principal); M79.605 Pain in left leg; R94.8 Abnormal results of function studies of other organs and systems; M48.04 Spinal stenosis, thoracic region; L89.893 Pressure ulcer of other site, stage 3; L89.314 Pressure ulcer of right buttock, stage 4
CPT/HCPCS: 11042; 11044; 11047; 72070; 72170; 93925; 97606; A6237; A6250

== ENCOUNTER → 2021-11-08 10:06 | Outpatient (BNVA) | payer MEDICARE, OTHER, SELFPAY | PROVIDERS: PCP Family Medicine; Visit Provider Urology | DX: N28.89 Other specified disorders of kidney and ureter (principal) | CPT/HCPCS: 51798; 81003; 99203 ==

== ENCOUNTER 2021-12-02 12:56 | Emergency (ER) | payer MEDICARE, OTHER, SELFPAY ==
[2021-12-02] VITALS (16 sets, daily range): BP systolic 70–128; BP diastolic 38–83; PULSE 95–124; RESP 17–22; TEMP 36.6–38.6; O2SAT 92–99; BMI 25.7
--- NOTE | 2021-12-02 14:22 | ED_ITS ---
Documented by User: Akira Raymundo DO 12/14/21 14:08 HPI - Wound/Laceration General: Chief Complaint: Wound/Laceration Stated Complaint: fever Time Seen by Provider: 12/02/21 14:22 Source: patient Mode of arrival: ambulatory History of Present Illness: 66-year-old female presents to the emergency room with right buttock ulcer coccygeal ulcer. She is reported she has had a fever the last couple of days. Patient had case of necrotizing fasciitis earlier this year underwent surgical debridement and has been following with wound care clinic and infectious disease she tells me she recently had an MRI done by infectious disease and they contact her telling her she has more extensive infection than they had recently thought and she was directed to the emergency room. She denies any chest pain at this time. Onset (ago): month(s) Location: other (Right buttock) Place: home Patient tetanus UTD: Yes Associated symptoms: Denies chills, fever(s), foreign body sensation, inability to move, nausea, numbness, pain, syncope or vomiting Review of Systems Const: Denies: fever(s), chills, fatigue or malaise ENMT: Denies: throat pain, ear or mastoid pain, nasal discharge or nasal congestion Card: Denies: chest pain, palpitations, irregular heart rhythm, edema, swelling of feet/ankles or syncope Resp: Denies: dyspnea, productive cough, non-productive cough or wheezing GI: Denies: abdominal pain, nausea or vomiting : Denies: flank pain, difficulty voiding, dysuria, urinary frequency or urinary urgency Skin/Breast: Denies: rash or pruritus PFSH ED PFSH: Medical History COPD (chronic obstructive pulmonary disease) Glass eye right Hydronephrosis, left Hyperlipidemia Syrinx of spinal cord Surgical History H/O hysterectomy for benign disease History of cholecystectomy Stented coronary artery Family History Mother , at age 72 CAD (coronary artery disease) Cancer Father , at age 81 COPD (chronic obstructive pulmonary disease) CAD (coronary artery disease) Social History Smoking and tobacco status: current every day smoker cigarettes Packs smoked per day: 0.5 [ Other cigarette details: no additives] Alcohol intake: current Alcohol intake frequency: few times a month Household members: spouse Marital status: Current occupational status: disabled History of recent travel: No Physical Exam Const: GENERAL APPEARANCE: cooperative and comfortable ORIENTATION/CONSCIOUSNESS: Yes awake, Yes oriented to person, Yes oriented to place and Yes oriented to time HENMT: COMMON NORMALS: normocephalic, atraumatic and hearing grossly normal bilaterally HEAD & SCALP: normocephalic and atraumatic Resp: COMMON NORMALS: normal respiratory effort, No retractions, No use of accessory muscles and clear to auscultation bilaterally AUSCULTATION: clear to auscultation bilaterally Cardio: COMMON NORMALS: regular rate, regular rhythm and No murmurs present (Cardio) RATE: regular rate RHYTHM: regular rhythm GI: COMMON NORMALS: Soft to palpation and No hepatosplenomegaly present AUSCULTATION: Yes normoactive bowel sounds PALPATION: Yes Soft to palpation, No Tenderness to palpation present (GI), No Guarding due to palpation present (GI) and Yes No hepatosplenomegaly present Extremity: COMMON NORMALS: normal to inspection, capillary refill normal, no clubbing, cyanosis or edema, no calf tenderness and no pedal edema Neuro: SENSORIUM/ORIENTATION: Yes oriented to person, Yes oriented to place and Yes oriented to time Skin: OTHER: Stage IV wound is extremely large and deep in the right buttock. Probed the wound with appears to go down to the ischial tuberosity. No active drainage no redness no erythema Course Vital Signs: Vital signs: Vital Signs Temperature 99.5 F 12/02/21 19:30 Pulse Rate 115 H 12/02/21 20:45 Respiratory Rate 22 H 12/02/21 20:45 Blood Pressure 128/41 12/02/21 20:45 Pulse Oximetry 94 12/02/21 20:45 Oxygen Delivery Me thod 12/02/21 19:30 MDM - Wound/Laceration Medical Decision Making Patient has osteomyelitis of the pelvis extending into the acetabulum. There is also developing abscess along the right ischium. This is not something were able to manage at our facility and did call and talk to her infectious disease doctor who directed her here Dr. Rebolledo. They would gladly take her back on transfer however [facility] in [place] is also closed to transfers because of volume and staffing issues so we are not able to get her transferred there. She does need inpatient care she is septic at this time. Blood pressure did improve with IV antibiotics. We will go ahead and transfer her we are able to get a better [facility] in [place]. Dr. Cruz will be the attending they are calling back with a room assignment transfer via ground ambulance which is appropriate for patient's current condition. While she does not require air amb ulance at this time she should be transferred this evening to [place]. Medical Records I reviewed the patient's medical records. Lab Data I reviewed the patient's lab results. : 12/02/21 14:41 12/02/21 14:41 Laboratory Results WBC 33.3 10^3/uL (4.0-10.0) H* 12/02/21 14:41 RBC 3.33 10^6/uL (4.1-5.3) L 12/02/21 14:41 Hgb 7.3 g/dL (11.5-15.3) L 12/02/21 14:41 Hct 24.1 % (37.0-47.0) L 12/02/21 14:41 MCV 72.4 fl (81-99) L 12/02/21 14:41 MCH 21.9 pg (28.0-34.0) L 12/02/21 14:41 MCHC 30.3 g/dL (30.0-36.0) 12/02/21 14:41 RDW 18.6 % (12.1-15.1) H 12/02/21 14:41 Plt Count 785 10^3/cmm (130-400) H 12/02/21 14:41 MPV 8.8 fL (7.4-10.4) 12/02/21 14:41 Neut % (Auto) 93.4 % 12/02/21 14:41 Lymph % (Auto) 2.5 % 12/02/21 14:41 Barron % (Auto) 2.2 % 12/02/21 14:41 Eos % (Auto) 0.1 % 12/02/21 14:41 Baso % (Auto) 0.5 % 12/02/21 14:41 Neut # (Auto) 31.15 10^3/uL (1.8-7.7) H 12/02/21 14:41 Lymph # (Auto) 0.8 10^3/uL (0.8-4.8) 12/02/21 14:41 Barron # (Auto) 0.7 10^3/uL (0.2-0.9) 12/02/21 14:41 Eos # (Auto) 0.1 10^3/uL (0.0-0.8) 12/02/21 14:41 Baso # (Auto) 0.2 10^3/uL (0.0-0.1) H 12/02/21 14:41 Nucleated RBC % (auto) 0 % 12/02/21 14:41 Nucleated RBCs # 0.0 /100WBC 12/02/21 14:41 ESR 121 mm/hr (0-15) H 12/02/21 14:41 Sodium 129 mmol/L (136-145) L 12/02/21 14:41 Potassium 4.9 mmol/L (3.5-5.1) 12/02/21 14:41 Chloride 91 mmol/L (98-107) L 12/02/21 14:41 Carbon Dioxide 23 mmol/L (22-29) 12/02/21 14:41 Anion Gap 19.9 (5-19) H 12/02/21 14:41 BUN 22 mg/dL (8-23) 12/02/21 14:41 Creatinine 1.1 mg/dL (0.5-0.9) H 12/02/21 14:41 GFR Calculation 49.5 mL/min (90-130) L 12/02/21 14:41 Glucose 100 mg/dL (65-115) 12/02/21 14:41 Calculated Osmolality 271 mOsm/kg (285-295) L 12/02/21 14:41 Lactic Acid 2.7 mmol/L (0.5-2.2) H 12/02/21 14:41 Lactate 3.8 mmol/L (0.5-2.2) H 12/02/21 17:19 Calcium 9.0 mg/dL (8.5-10.5) 12/02/21 14:41 Total Bilirubin 0.6 mg/dL (0.15-1.2) 12/02/21 14:41 AST 49 U/L (0-32) H 12/02/21 14:41 ALT 22 U/L (0-33) 12/02/21 14:41 Alkaline Phosphatase 320 IU/L (35-105) H 12/02/21 14:41 C-Reactive Protein 382.1 mg/L (0.0-4.9) H 12/02/21 14:41 Total Protein 7.0 g/dL (6.6-8.7) 12/02/21 14:41 Albumin 2.1 g/dL (3.5-5.2) L 12/02/21 14:41 Globulin 4.9 g/dL (1.3-4.6) H 12/02/21 14:41 Lipase 12 U/L (13-60) L 12/02/21 14:41 Urine Color Straw (Yellow) 12/02/21 17:30 Urine Appearance Clear (CLEAR) 12/02/21 17:30 Urine pH 7 (5-7) 12/02/21 17:30 Ur Specific [place] 1.005 (1.005-1.030) 12/02/21 17:30 Urine Protein Neg (Negative) 12/02/21 17:30 Urine Glucose (UA) Norm (Normal) 12/02/21 17:30 Urine Ketones Negative (Negative) 12/02/21 17:30 Urine Blood 3+ (Negative) H 12/02/21 17:30 Urine Nitrate Negative (Negative) 12/02/21 17:30 Urine Bilirubin Neg (Negative) 12/02/21 17:30 Urine Urobilinogen Norm mg/dL (Negative) 12/02/21 17:30 Ur Leukocyte Esterase 1+ (Negative) H 12/02/21 17:30 Urine RBC 0-4 /hpf (0-2) H 12/02/21 17:30 Urine WBC 5-10 /hpf (0-5) H 12/02/21 17:30 Ur Squamous Epith Cells 0-4 /hpf (0-5) H 12/02/21 17:30 Amorphous Sediment Not Reportable 12/02/21 17:30 Urine Bacteria 1+ /hpf (NONE) H 12/02/21 17:30 Coronavirus 229E (PCR) Not detected (NOT DETECT) 12/02/21 17:28 SARS-CoV-2 (PCR) Not detected (NOT DETECT) 12/02/21 17:28 Blood Type A Positive 12/02/21 15:54 Rho(D) Type Positive 12/02/21 15:54 Antibody Screen Negative 12/02/21 15:54 Crossmatch See Detail 12/02/21 15:54 Discharge Plan Discharge Patient Disposition: Xfer Short-Term Hosp Clinical Impression: Acute osteomyelitis, pelvis, Spastic diplegia, Open wnd buttock-complicated, Abscess of pelvis, Decubitus ulcer of ischium Condition: Stable Referrals: Ray Pretty DO [Primary Care Provider] - Patient Instructions: Opioid Safety Coding Level of Care Code ED Social Service Director for [facility] Fwd Exam Detailed Documented by User: Mason Yoo MD 12/17/21 21:32 HPI - Wound/Laceration General: Chief Complaint: Wound/Laceration Stated Complaint: fever Time Seen by Provider: 12/02/21 14:22 [facility] ED PFSH: Medical History COPD (chronic obstructive pulmonary disease) Glass eye right Hydronephrosis, left Hyperlipidemia Syrinx of spinal cord Surgical History H/O hysterectomy for benign disease History of cholecystectomy Stented coronary artery Family History Mother , at age 72 CAD (coronary artery disease) Cancer Father , at age 81 COPD (chronic obstructive pulmonary disease) CAD (coronary artery disease) Social History Smoking and tobacco status: current every day smoker cigarettes Packs smoked per day: 0.5 [ Other cigarette details: no additives] Alcohol intake: current Alcohol intake frequency: few times a month Household members: spouse Marital status: Current occupational status: disabled History of recent travel: No Course Vital Signs: Vital signs: Vital Signs Temperature 99.5 F 12/02/21 19:30 Pulse Rate 115 H 12/02/21 20:45 Respiratory Rate 22 H 12/02/21 20:45 Blood Pressure 128/41 12/02/21 20:45 Pulse Oximetry 94 12/02/21 20:45 Oxygen Delivery Me thod 12/02/21 19:30 MDM - Wound/Laceration Medical Decision Making Patient has osteomyelitis of the pelvis extending into the acetabulum. There is also developing abscess along the right ischium. This is not something were able to manage at our facility and did call and talk to her infectious disease doctor who directed her here Dr. Rebolledo. They would gladly take her back on transfer however [facility] [place] [facility] also closed to transfers because of volume and staffing issues so we are not able to get her transferred there. She does need inpatient care she is septic at this time. Blood pressure did improve with IV antibiotics. We will go ahead and transfer her we are able to get a [facility] in [place]. Dr. Cruz will be the attending they are calling back with a room assignment transfer via ground ambulance which is appropriate for patient's current condition. While she does not require air ambulance at this time she should be transferred this evening to [place]. Patient care discussed with Dr. Raymundo pending room assignment at accepting facility and EMS transfer from the emergency department. Patient continues to be significantly ill and blood pressure borderline hypotension. Nor epi ordered. Patient transferred from emergency department by EMS. Mason Yoo MD Emergency Medicine Lab Data : 12/02/21 14:41 12/02/21 14:41 Laboratory Results WBC 33.3 10^3/uL (4.0-10.0) H* 12/02/21 14:41 RBC 3.33 10^6/uL (4.1-5.3) L 12/02/21 14:41 Hgb 7.3 g/dL (11.5-15.3) L 12/02/21 14:41 Hct 24.1 % (37.0-47.0) L 12/02/21 14:41 MCV 72.4 fl (81-99) L 12/02/21 14:41 MCH 21.9 pg (28.0-34.0) L 12/02/21 14:41 MCHC 30.3 g/dL (30.0-36.0) 12/02/21 14:41 RDW 18.6 % (12.1-15.1) H 12/02/21 14:41 Plt Count 785 10^3/cmm (130-400) H 12/02/21 14:41 MPV 8.8 fL (7.4-10.4) 12/02/21 14:41 Neut % (Auto) 93.4 % 12/02/21 14:41 Lymph % (Auto) 2.5 % 12/02/21 14:41 Barron % (Auto) 2.2 % 12/02/21 14:41 Eos % (Auto) 0.1 % 12/02/21 14:41 Baso % (Auto) 0.5 % 12/02/21 14:41 Neut # (Auto) 31.15 10^3/uL (1.8-7.7) H 12/02/21 14:41 Lymph # (Auto) 0.8 10^3/uL (0.8-4.8) 12/02/21 14:41 Barron # (Auto) 0.7 10^3/uL (0.2-0.9) 12/02/21 14:41 Eos # (Auto) 0.1 10^3/uL (0.0-0.8) 12/02/21 14:41 Baso # (Auto) 0.2 10^3/uL (0.0-0.1) H 12/02/21 14:41 Nucleated RBC % (auto) 0 % 12/02/21 14:41 Nucleated RBCs # 0.0 /100WBC 12/02/21 14:41 ESR 121 mm/hr (0-15) H 12/02/21 14:41 Sodium 129 mmol/L (136-145) L 12/02/21 14:41 Potassium 4.9 mmol/L (3.5-5.1) 12/02/21 14:41 Chloride 91 mmol/L (98-107) L 12/02/21 14:41 Carbon Dioxide 23 mmol/L (22-29) 12/02/21 14:41 Anion Gap 19.9 (5-19) H 12/02/21 14:41 BUN 22 mg/dL (8-23) 12/02/21 14:41 Creatinine 1.1 mg/dL (0.5-0.9) H 12/02/21 14:41 GFR Calculation 49.5 mL/min (90-130) L 12/02/21 14:41 Glucose 100 mg/dL (65-115) 12/02/21 14:41 Calculated Osmolality 271 mOsm/kg (285-295) L 12/02/21 14:41 Lactic Acid 2.7 mmol/L (0.5-2.2) H 12/02/21 14:41 Lactate 3.8 mmol/L (0.5-2.2) H 12/02/21 17:19 Calcium 9.0 mg/dL (8.5-10.5) 12/02/21 14:41 Total Bilirubin 0.6 mg/dL (0.15-1.2) 12/02/21 14:41 AST 49 U/L (0-32) H 12/02/21 14:41 ALT 22 U/L (0-33) 12/02/21 14:41 Alkaline Phosphatase 320 IU/L (35-105) H 12/02/21 14:41 C-Reactive Protein 382.1 mg/L (0.0-4.9) H 12/02/21 14:41 Total Protein 7.0 g/dL (6.6-8.7) 12/02/21 14:41 Albumin 2.1 g/dL (3.5-5.2) L 12/02/21 14:41 Globulin 4.9 g/dL (1.3-4.6) H 12/02/21 14:41 Lipase 12 U/L (13-60) L 12/02/21 14:41 Urine Color Straw (Yellow) 12/02/21 17:30 Urine Appearance Clear (CLEAR) 12/02/21 17:30 Urine pH 7 (5-7) 12/02/21 17:30 Ur Specific [place] 1.005 (1.005-1.030) 12/02/21 17:30 Urine Protein Neg (Negative) 12/02/21 17:30 Urine Glucose (UA) Norm (Normal) 12/02/21 17:30 Urine Ketones Negative (Negative) 12/02/21 17:30 Urine Blood 3+ (Negative) H 12/02/21 17:30 Urine Nitrate Negative (Negative) 12/02/21 17:30 Urine Bilirubin Neg (Negative) 12/02/21 17:30 Urine Urobilinogen Norm mg/dL (Negative) 12/02/21 17:30 Ur Leukocyte Esterase 1+ (Negative) H 12/02/21 17:30 Urine RBC 0-4 /hpf (0-2) H 12/02/21 17:30 Urine WBC 5-10 /hpf (0-5) H 12/02/21 17:30 Ur Squamous Epith Cells 0-4 /hpf (0-5) H 12/02/21 17:30 Amorphous Sediment Not Reportable 12/02/21 17:30 Urine Bacteria 1+ /hpf (NONE) H 12/02/21 17:30 Coronavirus 229E (PCR) Not detected (NOT DETECT) 12/02/21 17:28 SARS-CoV-2 (PCR) Not detected (NOT DETECT) 12/02/21 17:28 Blood Type A Positive 12/02/21 15:54 Rho(D) Type Positive 12/02/21 15:54 Antibody Screen Negative 12/02/21 15:54 Crossmatch See Detail 12/02/21 15:54 Discharge Plan Discharge Patient Disposition: Xfer Short-Term Hosp Clinical Impression: Acute osteomyelitis, pelvis, Spastic diplegia, Open wnd buttock-complicated, Abscess of pelvis, Decubitus ulcer of ischium Condition: Stable Referrals: Ray Pretty DO [Primary Care Provider] - Patient Instructions: Opioid Safety Coding Level of Care Code ED Social Service Director for [facility] Fwd Exam Detailed
[2021-12-02 15:02] LABS: Basophils # 0.2 10^3/uL (0.0-0.1); Basophils % 0.5 %; Eosinophils # 0.1 10^3/uL (0.0-0.8); Eosinophils % 0.1 %; Hematocrit 24.1 % (37.0-47.0); Hemoglobin 7.3 g/dL (11.5-15.3); Lymphocytes # 0.8 10^3/uL (0.8-4.8); Lymphocytes % 2.5 %; Mean Corpuscular HGB Conc 30.3 g/dL (30.0-36.0); Mean Corpuscular Hemoglobin 21.9 pg (28.0-34.0); Mean Corpuscular Volume 72.4 fl (81-99); Mean Platelet Volume 8.8 fL (7.4-10.4); Monocytes # 0.7 10^3/uL (0.2-0.9); Monocytes % 2.2 %; Neutrophils # 31.15 10^3/uL (1.8-7.7); Neutrophils % 93.4 %; Nucleated Red Blood Cells % 0 %; Platelet Count 785 10^3/cmm (130-400); Red Blood Count 3.33 10^6/uL (4.1-5.3); Red Cell Distribution Width 18.6 % (12.1-15.1)
[2021-12-02 15:30] LABS: White Blood Count 33.3 10^3/uL (4.0-10.0)
[2021-12-02 15:35] LABS: Alanine Aminotransferase 22 U/L (0-33); Albumin Level 2.1 g/dL (3.5-5.2); Alkaline Phosphatase 320 IU/L (35-105); Anion Gap 19.9 (5-19); Aspartate Amino Transferase 49 U/L (0-32); Blood Urea Nitrogen 22 mg/dL (8-23); Carbon Dioxide 23 mmol/L (22-29); Chloride 91 mmol/L (98-107); Globulin 4.9 g/dL (1.3-4.6); Glomerular Filtration Rate 49.5 mL/min (90-130); Glucose 100 mg/dL (65-115); Lipase 12 U/L (13-60); Osmolality Calculated 271 mOsm/kg (285-295); Potassium 4.9 mmol/L (3.5-5.1); Sodium 129 mmol/L (136-145); Total Bilirubin 0.6 mg/dL (0.15-1.2)
[2021-12-02] MEDS: sodium chloride 0.9% 1,564.89 ML 1564.89 ML IV (15:39)
[2021-12-02 15:48] LABS: Erythrocyte Sedimentation Rate 121 mm/hr (0-15)
[2021-12-02 15:57] LABS: C Reactive Protein 382.1 mg/L (0.0-4.9)
[2021-12-02 15:59] LABS: Lactic Sepsis W/Reflex 2.7 mmol/L (0.5-2.2)
[2021-12-02] MEDS: cefepime 1,000 MG in sodium chloride 0.9% (plus) 50 ML 100 MG IV (16:32)
[2021-12-02] MEDS: vancomycin 1,000 MG in sodium chloride 0.9% 250 ML 250 MG IV (17:12)
[2021-12-02 18:18] LABS: Lactate (Lactic Acid level) 3.8 mmol/L (0.5-2.2)
[2021-12-02 18:19] LABS: Blood Urine 3+ (Negative); Glucose Urine UA Norm (Normal); Ketones Urine Negative (Negative); Protein Urine Neg (Negative); Specific Gravity, Urine 1.005 (1.005-1.030); Urine Appearance Clear (CLEAR); Urine Color Straw (Yellow); pH Urine 7 (5-7)
[2021-12-02 18:20] LABS: Add Urine Culture? Yes; Add Urine Microscopic? YES; Bacteria Urine 1+ /hpf; Bilirubin Urine Neg (Negative); Leukocyte Esterase Urine 1+ (Negative); Nitrate Urine Negative (Negative); RBC Urine 0-4 /hpf (0-2); Squamous Epithelial Cell Urine 0-4 /hpf (0-5); Urobilinogen Urine Norm (Negative)
[2021-12-02 19:34] LABS: Adenovirus Not Detected (NOT DETECT); Chlamydia Pneumoniae Not Detected (NOT DETECT); Coronavirus 229E,HKU1,NL63,OC4 Not Detected (NOT DETECT); Human Metapneumovirus Not Detected (NOT DETECT); Human Rhinovirus/Enterovirus Not Detected (NOT DETECT); Influenza A Not Detected (NOT DETECT); Influenza A H1 Not Detected (NOT DETECT); Influenza A H1-2009 Not Detected (NOT DETECT); Influenza A H3 Not Detected (NOT DETECT); Influenza B Not Detected (NOT DETECT); Mycoplasma Pneumoniae Not Detected (NOT DETECT); Parainfluenza Virus Type 1 Not Detected (NOT DETECT); Parainfluenza Virus Type 2 Not Detected (NOT DETECT); Parainfluenza Virus Type 3 Not Detected (NOT DETECT); Parainfluenza Virus Type 4 Not Detected (NOT DETECT); Respiratory Syncytial Virus A Not Detected (NOT DETECT); Respiratory Syncytial Virus B Not Detected (NOT DETECT); SARS-COV-2 Not Detected (NOT DETECT)
[2021-12-03 11:32] LABS: Bacillus cereus group Not Detected (NOT DETECT); Bacillus subtillis group Not Detected (NOT DETECT); Corynebacterium Not Detected (NOT DETECT); Cutibacterium acnes (P.acnes) Not Detected (NOT DETECT); Enterococcus Not Detected (NOT DETECT); Enterococcus faecalis Not Detected (NOT DETECT); Enterococcus faecium Not Detected (NOT DETECT); Lactobacillus species Not Detected (NOT DETECT); Listeria Not Detected (NOT DETECT); Listeria monocytogenes Not Detected (NOT DETECT); Micrococcus Not Detected (NOT DETECT); Pan Candida Not Detected (NOT DETECT); Pan Gram-Negative Not Detected (NOT DETECT); Staphylococcus epidermidis Not Detected (NOT DETECT); Staphylococcus lugdunensis Not Detected (NOT DETECT); Staphylococcus species Not Detected (NOT DETECT); Streptococcus agalactiae Not Detected (NOT DETECT); Streptococcus anginosus group Detected (NOT DETECT); Streptococcus pneumoniae Not Detected (NOT DETECT); Streptococcus pyogenes Not Detected (NOT DETECT); Streptococcus species Detected (NOT DETECT)
== END 2021-12-02 20:50 | disposition short-term general hospital (02) ==
PROVIDERS: Emergency Medicine; Emergency Provider Family Medicine; PCP Family Medicine
DX: M86.18 Other acute osteomyelitis, other site (principal); G80.1 Spastic diplegic cerebral palsy; N73.9 Female pelvic inflammatory disease, unspecified; L89.899 Pressure ulcer of other site, unspecified stage; S31.809A Unspecified open wound of unspecified buttock, initial encounter; X58.XXXA Exposure to other specified factors, initial encounter; J44.9 Chronic obstructive pulmonary disease, unspecified; E78.5 Hyperlipidemia, unspecified; F17.210 Nicotine dependence, cigarettes, uncomplicated; Z20.822 Contact with and (suspected) exposure to COVID-19
CPT/HCPCS: 36415; 36430; 80053; 81001; 83605; 83690; 85025; 85651; 86140; 86850; 86900; 86920; 87040; 87086; 87150; 87205; 87635; 96365; 96366; 96367; 99285; J0692; J3370; J7030; J7050; P9040

== ENCOUNTER → 2021-12-19 12:42 | Outpatient (BNVA) | payer MEDICARE, OTHER, SELFPAY | PROVIDERS: PCP Family Medicine; Visit Provider Nurse Practitioner Family | DX: R30.0 Dysuria (principal) | CPT/HCPCS: 81003; 87086 ==

== ENCOUNTER → 2021-12-20 13:51 | Outpatient (BNVA) | payer MEDICARE, OTHER, SELFPAY | PROVIDERS: PCP Family Medicine; Visit Provider Nurse Practitioner Family | DX: R30.0 Dysuria (principal); L89.312 Pressure ulcer of right buttock, stage 2 | CPT/HCPCS: 80053; 85025 ==

== ENCOUNTER → 2021-12-27 13:47 | Outpatient (BNVA) | payer MEDICARE, OTHER, SELFPAY | PROVIDERS: PCP Family Medicine; Visit Provider Thoracic Surgery (Cardiothoracic Vascular Surgery) | DX: Z01.89 Encounter for other specified special examinations (principal) | CPT/HCPCS: 87070; 87077; 87176; 87186; 87205 ==

== ENCOUNTER → 2022-01-10 09:23 | Outpatient (BNVA) | payer MEDICARE, OTHER, SELFPAY | PROVIDERS: PCP Family Medicine; Visit Provider Urology | DX: N28.89 Other specified disorders of kidney and ureter (principal) | CPT/HCPCS: 99213 ==

== ENCOUNTER → 2022-01-15 13:58 | Outpatient (BNVA) | payer MEDICARE, OTHER, SELFPAY | PROVIDERS: PCP Family Medicine; Visit Provider Thoracic Surgery (Cardiothoracic Vascular Surgery) | DX: T81.31XA Disruption of external operation (surgical) wound, not elsewhere classified, initial encounter (principal); Y83.8 Other surgical procedures as the cause of abnormal reaction of the patient, or of later complication, without mention of misadventure at the time of the procedure; L98.492 Non-pressure chronic ulcer of skin of other sites with fat layer exposed; I96 Gangrene, not elsewhere classified | CPT/HCPCS: 11042 ==

== ENCOUNTER → 2022-01-16 09:48 | Outpatient (BNVA) | payer MEDICARE, OTHER, SELFPAY | PROVIDERS: PCP Family Medicine; Visit Provider Student in an Organized Health Care Education/Training Program | DX: S73.004A Unspecified dislocation of right hip, initial encounter (principal); Z76.89 Persons encountering health services in other specified circumstances; X58.XXXA Exposure to other specified factors, initial encounter; L97.115 Non-pressure chronic ulcer of right thigh with muscle involvement without evidence of necrosis | CPT/HCPCS: 73502; 99204 ==

== ENCOUNTER → 2022-01-24 17:19 | Outpatient (BNVA) | payer MEDICARE, OTHER, SELFPAY | PROVIDERS: PCP Family Medicine; Visit Provider Thoracic Surgery (Cardiothoracic Vascular Surgery) | DX: Z01.89 Encounter for other specified special examinations (principal) | CPT/HCPCS: 87070; 87176; 87205 ==

== ENCOUNTER → 2022-01-31 11:35 | Outpatient (BNVA) | payer MEDICARE, OTHER, SELFPAY | PROVIDERS: PCP Family Medicine; Visit Provider Nurse Practitioner Family | DX: R31.9 Hematuria, unspecified (principal) | CPT/HCPCS: 81003 ==

== ENCOUNTER 2022-04-25 15:23 | Emergency (ER) | payer MEDICARE, OTHER, SELFPAY ==
[2022-04-25 15:37] VITALS: BP 108/72; PULSE 106; RESP 18; TEMP 36.5; O2SAT 97; BMI 26.4
== END 2022-04-25 17:40 | disposition left against medical advice (07) ==
PROVIDERS: Emergency Provider Family Medicine; PCP Family Medicine
DX: T81.31XD Disruption of external operation (surgical) wound, not elsewhere classified, subsequent encounter (principal); Y83.8 Other surgical procedures as the cause of abnormal reaction of the patient, or of later complication, without mention of misadventure at the time of the procedure; L89.312 Pressure ulcer of right buttock, stage 2; L97.812 Non-pressure chronic ulcer of other part of right lower leg with fat layer exposed; Z09 Encounter for follow-up examination after completed treatment for conditions other than malignant neoplasm
CPT/HCPCS: 11042; 11043; 11046; 99213; A6220

== ENCOUNTER → 2022-04-29 16:05 | Outpatient (BNVA) | payer MEDICARE, OTHER, SELFPAY | PROVIDERS: PCP Family Medicine; Visit Provider Thoracic Surgery (Cardiothoracic Vascular Surgery) | DX: I96 Gangrene, not elsewhere classified (principal); L89.312 Pressure ulcer of right buttock, stage 2; T81.31XD Disruption of external operation (surgical) wound, not elsewhere classified, subsequent encounter; Y83.8 Other surgical procedures as the cause of abnormal reaction of the patient, or of later complication, without mention of misadventure at the time of the procedure | CPT/HCPCS: 11042; 11045; 87070; 87077; 87186; 97606; A6237; A6250 ==

== ENCOUNTER → 2022-05-05 15:47 | Outpatient (BNVA) | payer MEDICARE, OTHER, SELFPAY | PROVIDERS: PCP Family Medicine; Visit Provider Thoracic Surgery (Cardiothoracic Vascular Surgery) | DX: M72.6 Necrotizing fasciitis (principal); L89.310 Pressure ulcer of right buttock, unstageable; T81.31XD Disruption of external operation (surgical) wound, not elsewhere classified, subsequent encounter; Y83.8 Other surgical procedures as the cause of abnormal reaction of the patient, or of later complication, without mention of misadventure at the time of the procedure | CPT/HCPCS: 11042; 11044; 87070; 87077; 87176; 87186; 87205; 97605; A6237; A6250 ==

== ENCOUNTER → 2022-05-12 16:21 | Outpatient (BNVA) | payer MEDICARE, OTHER, SELFPAY | PROVIDERS: PCP Family Medicine; Visit Provider Thoracic Surgery (Cardiothoracic Vascular Surgery) | DX: T81.31XD Disruption of external operation (surgical) wound, not elsewhere classified, subsequent encounter (principal); Y83.8 Other surgical procedures as the cause of abnormal reaction of the patient, or of later complication, without mention of misadventure at the time of the procedure; I96 Gangrene, not elsewhere classified; L89.319 Pressure ulcer of right buttock, unspecified stage | CPT/HCPCS: 11042; 97605; A6237; A6250 ==

== ENCOUNTER → 2022-05-19 16:40 | Outpatient (BNVA) | payer MEDICARE, OTHER, SELFPAY | PROVIDERS: PCP Family Medicine; Visit Provider Thoracic Surgery (Cardiothoracic Vascular Surgery) | DX: T81.31XD Disruption of external operation (surgical) wound, not elsewhere classified, subsequent encounter (principal); Y83.8 Other surgical procedures as the cause of abnormal reaction of the patient, or of later complication, without mention of misadventure at the time of the procedure | CPT/HCPCS: 11042; 11045; 97605; A6237; A6250 ==

== ENCOUNTER → 2022-06-02 13:03 | Outpatient (BNVA) | payer MEDICARE, OTHER, SELFPAY | PROVIDERS: PCP Family Medicine; Visit Provider Thoracic Surgery (Cardiothoracic Vascular Surgery) | DX: T81.31XD Disruption of external operation (surgical) wound, not elsewhere classified, subsequent encounter (principal); Y83.8 Other surgical procedures as the cause of abnormal reaction of the patient, or of later complication, without mention of misadventure at the time of the procedure; L89.312 Pressure ulcer of right buttock, stage 2; L97.812 Non-pressure chronic ulcer of other part of right lower leg with fat layer exposed | CPT/HCPCS: 11042; 97605; A6237; A6250 ==

== ENCOUNTER → 2022-06-12 08:24 | Outpatient (BNVA) | payer MEDICARE, OTHER, SELFPAY | PROVIDERS: PCP Family Medicine; Visit Provider Student in an Organized Health Care Education/Training Program | DX: M86.9 Osteomyelitis, unspecified (principal); G37.9 Demyelinating disease of central nervous system, unspecified; S71.001A Unspecified open wound, right hip, initial encounter; X58.XXXA Exposure to other specified factors, initial encounter | CPT/HCPCS: 36415; 80053; 85025; 85651; 86140; 99215 ==

== ENCOUNTER → 2022-06-16 13:04 | Outpatient (BNVA) | payer MEDICARE, OTHER, SELFPAY | PROVIDERS: PCP Family Medicine; Visit Provider Thoracic Surgery (Cardiothoracic Vascular Surgery) | DX: L89.312 Pressure ulcer of right buttock, stage 2 (principal); T81.31XD Disruption of external operation (surgical) wound, not elsewhere classified, subsequent encounter; Y83.8 Other surgical procedures as the cause of abnormal reaction of the patient, or of later complication, without mention of misadventure at the time of the procedure | CPT/HCPCS: 11042 ==

== ENCOUNTER 2022-06-18 15:01 | Outpatient (CLI) | payer MEDICARE, OTHER, SELFPAY ==
[2022-06-18] MEDS: iohexol 350 mg/mL 500 mL Btl (per mL) IV (15:26)
--- NOTE | 2022-06-18 15:30 | CT_ITS ---
WS: [id number] CT ABDOMEN AND PELVIS WITH CONTRAST HISTORY: f/up osteomyelitis. Patient is s/p girdlestone procedure TECHNIQUE: Imaging performed of the abdomen and pelvis with IV contrast. Single phase imaging of the abdomen. Coronal and sagittal reformats are submitted. All CT scans at [facility] use at raz [facility] one of these dose optimization techniques: automated exposure control; mA and/or kV adjustment per patient size (includes targeted exams where dose is matched to clinical indication); or iterative re construction. IV CONTRAST: Omnipaque 350; 100 mL IV. Oral contrast: No DLP: 386.93 mGy.cm COMPARISON: 08/30/2021, radiographs 01/16/2022 Lower thorax: Lung bases are clear. Heart is normal size. No hiatal hernia. Liver/biliary system: Normal size with no intrahepatic dilatation. Gallbladder: Status post cholecystectomy. Pancreas: Normal size pancreas and pancreatic duct. No adjacent inflammation. Spleen: Normal size spleen. No mass or infarct. Adrenal glands: Normal. Right kidney: Normal size RIGHT kidney. Simple cyst mid kidney measuring 1.8 x 1.8 cm is unchanged. N o solid mass. Left kidney: Increased lobulations of the LEFT kidney. Mild LEFT renal atrophy. There is mild dilatat ion of the LEFT renal pelvis and LEFT ureter. In the distal LEFT ureter is increased density filling the lumen. Similar findings were seen on the prior study. Aorta: Mild atherosclerosis with no aneurysm. Lymphadenopathy: Small retroperitoneal lymph nodes. Increasing number of lymph nodes in the pelvis wh ich are probably reactive. Free fluid: None. GI tract: Normally distended stomach. No small bowel obstruction. Diffuse constipation. Abdominal wall: Unremarkable abdominal wall. No hernia. Pelvis: Bhakta catheter in the urinary bladder. Extensive abnormality surrounding the RIGHT hip. There is increased soft tissue with air and bone fra gments. There is a large open tract lateral to the hip extending to the tuberosity. This tract may be a debridement tract extending to the greater tuberosity. Destruction of the normal femoral head and acetabulum. Dystrophic calcifications developing in the soft tissues along with air. There is an stevie tional decubitus ulcer posteriorly extending to the ischial tuberosity and there is mild soft tissue thickening extending towards the perineum. Destruction of the RIGHT ischial tuberosity. This may be a cute on chronic process at the ischial tuberosity due to mild enhancement along the ulcerated tract. CT/CT abdomen pelvis w con* [id number] IMPRESSION: 1. Extensive soft tissue and bone destruction centered at the RIGHT hip. There is RIGHT hip displacement with osseous destruction and fragmentation secondary to an infectious process. The extent of osseous destruction centered at the RI GHT hip is new since 08/30/2021. Findings are most consistent with osteomyelitis and soft tissue infection. 2. Chronic osteomyelitis with bone destruction RIGHT ischial tuberosity. Activ e acute osteomyelitis may also be present as there is a decubitus ulcer with mi ld enhancement along the tract. 3. Additional soft tissue decubitus ulcer extending to the RIGHT ischial tuber osity and extending medially towards the perineum. 4. Bhakta catheter in place. 5. Mild LEFT hydroureteronephrosis secondary to increased density within the d istal LEFT ureter. Similar to the study from 08/30/2021. Ureteral mass is not exc luded.
== END 2022-06-18 15:02 | disposition home or self-care (01) ==
LOC: RAD 15:01
PROVIDERS: PCP Family Medicine; Visit Provider Student in an Organized Health Care Education/Training Program
DX: M86.8X6 Other osteomyelitis, lower leg (principal)
CPT/HCPCS: 74177; Q9967

== ENCOUNTER → 2022-06-20 08:42 | Day surgery (SDC) | payer MEDICARE, OTHER, SELFPAY ==
--- NOTE | 2022-06-20 08:52 | XR_ITS ---
WS: [id number] Exam: XR chest 1V portable [id number] Date/Time of Exam: 06/20/2022 8:52 AM Reason For Exam: Post PICC placement Comparison 07/31/2021. A right-sided PICC line has been placed and ends in the lower one third of the SVC in good position. The lungs are fully expanded. Normal cardiomediastinal silhouette. No pleural effusions. Bony structu res are intact. XR/XR chest 1V portable [id number] IMPRESSION: 1. Right-sided PICC line in satisfactory position. No acute process noted.
[2022-06-20 08:55] VITALS: BP 107/64; PULSE 91; RESP 18; TEMP 36.6; O2SAT 96
[2022-06-20] MEDS: vancomycin 1,000 MG in sodium chloride 0.9% 250 ML 250 MG IV (10:10)
[2022-06-20] MEDS: piperacillin-tazobactam 4.5 GM in sodium chloride 0.9% (plus) 50 ML IV (10:15)
--- NOTE | 2022-06-20 11:10 | PC.NURSE ---
Pt to GI infusions for PICC placement and first dose antibiotics. Double lumen Bard Power PICC inserted into right basilic vein without difficulty. Total length on insertion 37 cm with 3 cm external length noted. Tip noted in distal third of SVC in good position for use. PICC report and CXR faxed to [facility]. [facility] faxed report as well. Pt tolerated first dose of Vancomycin 1 gm and Zosyn 4.5 gm without reaction.
== END | disposition home or self-care (01) ==
PROVIDERS: Family Provider Thoracic Surgery (Cardiothoracic Vascular Surgery); PCP Family Medicine; Visit Provider Student in an Organized Health Care Education/Training Program
DX: M86.9 Osteomyelitis, unspecified (principal)
CPT/HCPCS: 36569; 71045; 96365; 96367; J2543; J3370; J7050

== ENCOUNTER → 2022-06-23 13:02 | Outpatient (BNVA) | payer MEDICARE, OTHER, SELFPAY | PROVIDERS: Family Provider Thoracic Surgery (Cardiothoracic Vascular Surgery); PCP Family Medicine; Visit Provider Thoracic Surgery (Cardiothoracic Vascular Surgery) | DX: I96 Gangrene, not elsewhere classified (principal); L89.312 Pressure ulcer of right buttock, stage 2; T81.31XD Disruption of external operation (surgical) wound, not elsewhere classified, subsequent encounter; Y83.8 Other surgical procedures as the cause of abnormal reaction of the patient, or of later complication, without mention of misadventure at the time of the procedure | CPT/HCPCS: 11042; 97605; A6237; A6250 ==

== ENCOUNTER → 2022-06-26 13:32 | Outpatient (BNVA) | payer MEDICARE, OTHER, SELFPAY | PROVIDERS: PCP Family Medicine; Visit Provider Student in an Organized Health Care Education/Training Program | DX: M86.9 Osteomyelitis, unspecified (principal); G37.9 Demyelinating disease of central nervous system, unspecified; S71.001A Unspecified open wound, right hip, initial encounter; X58.XXXA Exposure to other specified factors, initial encounter | CPT/HCPCS: 99024; 99214 ==

== ENCOUNTER → 2022-06-30 09:28 | Outpatient (BNVA) | payer MEDICARE, OTHER, SELFPAY | PROVIDERS: PCP Family Medicine; Visit Provider Student in an Organized Health Care Education/Training Program | DX: M86.9 Osteomyelitis, unspecified (principal); Z79.899 Other long term (current) drug therapy | CPT/HCPCS: 80076; 80202; 82565; 85025; 86140 ==

== ENCOUNTER → 2022-07-03 09:26 | Outpatient (BNVA) | payer MEDICARE, OTHER, SELFPAY | PROVIDERS: PCP Family Medicine; Visit Provider Nurse Practitioner Family | DX: M86.9 Osteomyelitis, unspecified (principal); Z79.899 Other long term (current) drug therapy | CPT/HCPCS: 80076; 80202; 82565; 85025; 86140 ==

== ENCOUNTER 2022-07-07 11:58 | Outpatient (CLI) | payer MEDICARE, OTHER, SELFPAY ==
[2022-07-07 13:23] LABS: Basophils # 0.1 10^3/uL (0.0-0.1); Basophils % 0.7 %; Eosinophils # 0.4 10^3/uL (0.0-0.8); Eosinophils % 3.1 %; Lymphocytes # 2.6 10^3/uL (0.8-4.8); Lymphocytes % 22.2 %; Mean Corpuscular HGB Conc 28.1 g/dL (30.0-36.0); Mean Corpuscular Hemoglobin 20.9 pg (28.0-34.0); Mean Corpuscular Volume 74.2 fl (81-99); Mean Platelet Volume 8.1 fL (7.4-10.4); Monocytes # 1.1 10^3/uL (0.2-0.9); Monocytes % 9.6 %; Neutrophils # 7.43 10^3/uL (1.8-7.7); Neutrophils % 63.9 %; Nucleated Red Blood Cells % 0 %; Platelet Count 667 10^3/cmm (130-400); Red Blood Count 4.31 10^6/uL (4.1-5.3); Red Cell Distribution Width 19.3 % (12.1-15.1); White Blood Count 11.6 10^3/uL (4.0-10.0)
[2022-07-07 13:45] LABS: Alanine Aminotransferase 9 U/L (0-33); Albumin Level 3.6 g/dL (3.5-5.2); Alkaline Phosphatase 156 U/L (35-105); Aspartate Amino Transferase 19 U/L (0-32); C Reactive Protein 96.4 mg/L (0.0-4.9); Glomerular Filtration Rate 99.4 mL/min (90-130); Total Bilirubin 0.2 mg/dL (0.15-1.2); Total Protein 7.6 g/dL (6.6-8.7)
[2022-07-07 13:52] LABS: Vancomycin Trough 12.2 ug/mL (10-15)
== END 2022-07-07 11:59 | disposition home or self-care (01) ==
PROVIDERS: PCP Family Medicine; Visit Provider Student in an Organized Health Care Education/Training Program
DX: M86.9 Osteomyelitis, unspecified (principal); I96 Gangrene, not elsewhere classified; L89.312 Pressure ulcer of right buttock, stage 2; T81.31XD Disruption of external operation (surgical) wound, not elsewhere classified, subsequent encounter; Y83.8 Other surgical procedures as the cause of abnormal reaction of the patient, or of later complication, without mention of misadventure at the time of the procedure
CPT/HCPCS: 11042; 36415; 80076; 80202; 82565; 85025; 86140; A6237; A6250

== ENCOUNTER → 2022-07-10 08:34 | Outpatient (BNVA) | payer MEDICARE, OTHER, SELFPAY | PROVIDERS: PCP Family Medicine; Visit Provider Nurse Practitioner Family | DX: M86.9 Osteomyelitis, unspecified (principal) | CPT/HCPCS: 80076; 80202; 82565; 85025; 86140 ==

== ENCOUNTER 2022-07-14 11:52 | Outpatient (CLI) | payer MEDICARE, OTHER, SELFPAY ==
[2022-07-14 13:08] LABS: Basophils # 0.1 10^3/uL (0.0-0.1); Basophils % 0.5 %; Eosinophils # 0.4 10^3/uL (0.0-0.8); Eosinophils % 2.6 %; Hematocrit 28.7 % (37.0-47.0); Hemoglobin 8.1 g/dL (11.5-15.3); Lymphocytes # 2.3 10^3/uL (0.8-4.8); Lymphocytes % 15.2 %; Mean Corpuscular HGB Conc 28.2 g/dL (30.0-36.0); Mean Corpuscular Hemoglobin 20.9 pg (28.0-34.0); Mean Corpuscular Volume 74.2 fl (81-99); Mean Platelet Volume 8.6 fL (7.4-10.4); Monocytes # 1.5 10^3/uL (0.2-0.9); Monocytes % 9.7 %; Neutrophils # 10.86 10^3/uL (1.8-7.7); Neutrophils % 71.4 %; Nucleated Red Blood Cells % 0 %; Platelet Count 678 10^3/cmm (130-400); Red Blood Count 3.87 10^6/uL (4.1-5.3); Red Cell Distribution Width 19.6 % (12.1-15.1); White Blood Count 15.2 10^3/uL (4.0-10.0)
[2022-07-14 13:28] LABS: Vancomycin Trough 10.9 ug/mL (10-15)
[2022-07-14 13:29] LABS: Alanine Aminotransferase 14 U/L (0-33); Albumin Level 3.5 g/dL (3.5-5.2); Alkaline Phosphatase 153 U/L (35-105); Aspartate Amino Transferase 22 U/L (0-32); C Reactive Protein 173.9 mg/L (0.0-4.9); Globulin 4.1 g/dL (1.3-4.6); Glomerular Filtration Rate 99.4 mL/min (90-130); Total Bilirubin 0.3 mg/dL (0.15-1.2); Total Protein 7.6 g/dL (6.6-8.7)
== END 2022-07-14 11:53 | disposition home or self-care (01) ==
LOC: LAB 12:00
PROVIDERS: PCP Family Medicine; Visit Provider Student in an Organized Health Care Education/Training Program
DX: M86.9 Osteomyelitis, unspecified (principal); L89.312 Pressure ulcer of right buttock, stage 2; T81.31XD Disruption of external operation (surgical) wound, not elsewhere classified, subsequent encounter; Y83.8 Other surgical procedures as the cause of abnormal reaction of the patient, or of later complication, without mention of misadventure at the time of the procedure; I96 Gangrene, not elsewhere classified; Z79.899 Other long term (current) drug therapy
CPT/HCPCS: 11042; 36415; 80076; 80202; 82565; 85025; 86140; 97605; A6212; A6237; A6250

== ENCOUNTER 2022-07-17 08:55 | Outpatient (CLI) | payer MEDICARE, OTHER, SELFPAY ==
--- NOTE | 2022-07-17 09:15 | CTR_ITS ---
PROCEDURE INFORMATION: Exam: CT Pelvis With Contrast Exam date and time: 07/17/2022 9:37 AM Age: 67 years old Clinical indication: Condition or disease; Other: Osteomyelitis pelvis, prior surgery; Surgery type: Hysterectomy, cholecystectomy, disarticulation of RT hip, eye, stented coronary artery, ; additional info: Osteomyelitis pelvis, follow up osteomyelitis/abscess. Worsening inflammatory TECHNIQUE: Imaging protocol: Computed tomography of the pelvis with contrast. Radiation optimization: All CT scans at this facility use at least one of these dose optimization techniques: automated exposure control; mA and/or kV adjustment per patient size (includes targeted exams where dose is matched to clinical indication); or iterative reconstruction. Contrast material: OMNI 350; Contrast volume: 100 ml; Contrast route: INTRAVENOUS (IV); REPORTING DATA: Count of CT and Cardiac NM exams in prior 12 months: This patient has received 3 known CTs and 0 known cardiac nuclear medicine studies in the 12 months prior to the current study. COMPARISON: 1. CT abdomen pelvis w con* [id number] 06/18/2022 3:[address] abdomen pelvis wo/w [id number] 08/30/2021 4:52 PM RADIATION DOSE METRICS: Total DLP (mGy-cm): 216.85 FINDINGS: Kidneys and ureters: The distal left ureter is mildly distended and there is soft tissue density filling the distal ureter just above the ureterovesical junction. The this soft tissue density is enhancing based on findings from CT of the abdomen pelvis 08/30/2021. Stomach and bowel: The cecum is stool distended. Visible small bowel is nondilated. Appendix: The appendix is normal. Intraperitoneal space: No pelvic free fluid. Lymph nodes: Asymmetrically enlarged, probably reactive right iliac and inguinal lymph nodes. Urinary bladder: The Bhakta catheter is appropriately positioned with the bulb and tip within the bladder lumen. Reproductive: The uterus is absent. There is no adnexal mass or large cyst. Bones/joints: There is destruction of the right hip. The right femoral head is absent and the proximal femur is laterally dislocated from the acetabulum. There is bulky heterotopic bone formation surrounding the right hip. There is partial destruction of the right ischium and inferior pubic ramus with mild adjacent heterotopic bone formation. Soft tissues: Lateral to the right hip there is a deep soft tissue ulcer with a small volume of gas within ill-defined soft tissue density between the femur and acetabulum. No discrete fluid collection. There is a deep ischial ulcer on the right. No discrete fluid collection. There is persistent asymmetric enlargement of the right gluteus medius and minimus muscles without associated edema suggesting muscular contraction related to discontinuity of the gluteal tendons. There is relative atrophy of the right iliacus muscle. CT/CT pelvis w con* [id number] IMPRESSION: 1. Stable bone destruction and heterotopic bone formation at the right hip and right ischium with adjacent deep soft tissue ulcers. Findings are consistent with chronic osteomyelitis. 2. Decreased volume of soft tissue gas between the right femur and acetabulum since 06/18/2022. No abscess. 3. Enhancing soft tissue in the distal left ureter consistent with a urothelial neoplasm. 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 Recommend urology consultation.
[2022-07-17 09:21] LABS: Basophils # 0.1 10^3/uL (0.0-0.1); Basophils % 0.4 %; Hematocrit 30.9 % (37.0-47.0); Hemoglobin 8.7 g/dL (11.5-15.3); Lymphocytes # 2.8 10^3/uL (0.8-4.8); Lymphocytes % 20.9 %; Mean Corpuscular HGB Conc 28.2 g/dL (30.0-36.0); Mean Corpuscular Hemoglobin 20.7 pg (28.0-34.0); Mean Corpuscular Volume 73.6 fl (81-99); Mean Platelet Volume 8.2 fL (7.4-10.4); Monocytes # 1.4 10^3/uL (0.2-0.9); Monocytes % 10.3 %; Neutrophils % 60.7 %; Nucleated Red Blood Cells % 0 %; Platelet Count 777 10^3/cmm (130-400); Red Cell Distribution Width 19.9 % (12.1-15.1); White Blood Count 13.5 10^3/uL (4.0-10.0)
[2022-07-17 09:34] LABS: Alanine Aminotransferase 11 U/L (0-33); Albumin Level 3.4 g/dL (3.5-5.2); Alkaline Phosphatase 152 U/L (35-105); Aspartate Amino Transferase 19 U/L (0-32); C Reactive Protein 86.7 mg/L (0.0-4.9); Globulin 4.1 g/dL (1.3-4.6); Glomerular Filtration Rate 83.2 mL/min (90-130); Total Bilirubin 0.2 mg/dL (0.15-1.2); Total Protein 7.5 g/dL (6.6-8.7)
[2022-07-17] MEDS: iohexol 350 mg/mL 500 mL Btl (per mL) IV (09:50)
[2022-07-17 10:30] LABS: Vancomycin Trough 19.7 ug/mL (10-15)
== END 2022-07-17 08:56 | disposition home or self-care (01) ==
LOC: RAD 08:59
PROVIDERS: PCP Family Medicine; Visit Provider Student in an Organized Health Care Education/Training Program
DX: M86.9 Osteomyelitis, unspecified (principal)
CPT/HCPCS: 36415; 72193; 80076; 80202; 82565; 85025; 86140; Q9967

== ENCOUNTER 2022-07-21 10:58 | Outpatient (CLI) | payer MEDICARE, OTHER, SELFPAY ==
[2022-07-21 11:51] LABS: Basophils # 0.1 10^3/uL (0.0-0.1); Basophils % 0.5 %; Eosinophils # 0.5 10^3/uL (0.0-0.8); Eosinophils % 4.4 %; Hematocrit 29.6 % (37.0-47.0); Hemoglobin 8.3 g/dL (11.5-15.3); Lymphocytes # 2.6 10^3/uL (0.8-4.8); Lymphocytes % 23.1 %; Mean Corpuscular Hemoglobin 20.5 pg (28.0-34.0); Mean Corpuscular Volume 73.3 fl (81-99); Mean Platelet Volume 8.1 fL (7.4-10.4); Monocytes # 1.1 10^3/uL (0.2-0.9); Monocytes % 9.7 %; Neutrophils # 7.03 10^3/uL (1.8-7.7); Neutrophils % 61.7 %; Nucleated Red Blood Cells % 0 %; Platelet Count 779 10^3/cmm (130-400); Red Blood Count 4.04 10^6/uL (4.1-5.3); Red Cell Distribution Width 19.7 % (12.1-15.1); White Blood Count 11.4 10^3/uL (4.0-10.0)
[2022-07-21 12:03] LABS: Alanine Aminotransferase 13 U/L (0-33); Albumin Level 3.4 g/dL (3.5-5.2); Alkaline Phosphatase 147 U/L (35-105); Aspartate Amino Transferase 19 U/L (0-32); C Reactive Protein 99.3 mg/L (0.0-4.9); Glomerular Filtration Rate 99.4 mL/min (90-130); Total Bilirubin 0.2 mg/dL (0.15-1.2); Total Protein 7.4 g/dL (6.6-8.7)
[2022-07-21 12:07] LABS: Vancomycin Trough 19.5 ug/mL (10-15)
== END 2022-07-21 10:59 | disposition home or self-care (01) ==
LOC: LAB 11:01
PROVIDERS: Student in an Organized Health Care Education/Training Program; PCP Family Medicine; Visit Provider Internal Medicine
DX: M86.9 Osteomyelitis, unspecified (principal)
CPT/HCPCS: 36415; 80076; 80202; 82565; 85025; 86140

== ENCOUNTER 2022-07-24 11:46 | Outpatient (CLI) | payer MEDICARE, OTHER, SELFPAY ==
[2022-07-24 12:55] LABS: Basophils # 0.1 10^3/uL (0.0-0.1); Basophils % 0.4 %; Eosinophils # 0.4 10^3/uL (0.0-0.8); Eosinophils % 2.3 %; Hematocrit 29.2 % (37.0-47.0); Hemoglobin 8.3 g/dL (11.5-15.3); Lymphocytes # 2.8 10^3/uL (0.8-4.8); Lymphocytes % 17.7 %; Mean Corpuscular HGB Conc 28.4 g/dL (30.0-36.0); Mean Corpuscular Hemoglobin 21.1 pg (28.0-34.0); Mean Corpuscular Volume 74.3 fl (81-99); Mean Platelet Volume 8.1 fL (7.4-10.4); Monocytes # 1.3 10^3/uL (0.2-0.9); Monocytes % 8.1 %; Neutrophils # 11.13 10^3/uL (1.8-7.7); Neutrophils % 70.6 %; Nucleated Red Blood Cells % 0 %; Platelet Count 709 10^3/cmm (130-400); Red Blood Count 3.93 10^6/uL (4.1-5.3); Red Cell Distribution Width 19.9 % (12.1-15.1); White Blood Count 15.8 10^3/uL (4.0-10.0)
[2022-07-24 13:16] LABS: Alanine Aminotransferase 16 U/L (0-33); Albumin Level 3.4 g/dL (3.5-5.2); Alkaline Phosphatase 157 U/L (35-105); Aspartate Amino Transferase 25 U/L (0-32); C Reactive Protein 93.6 mg/L (0.0-4.9); Globulin 3.9 g/dL (1.3-4.6); Glomerular Filtration Rate 83.2 mL/min (90-130); Total Bilirubin 0.2 mg/dL (0.15-1.2); Total Protein 7.3 g/dL (6.6-8.7)
== END 2022-07-24 11:47 | disposition home or self-care (01) ==
PROVIDERS: PCP Family Medicine; Visit Provider Student in an Organized Health Care Education/Training Program
DX: M86.9 Osteomyelitis, unspecified (principal)
CPT/HCPCS: 36415; 80076; 80202; 82565; 85025; 86140

== ENCOUNTER 2022-07-28 10:26 | Outpatient (RCR) | payer MEDICARE, OTHER, SELFPAY ==
[2022-07-28 12:29] LABS: Basophils # 0.1 10^3/uL (0.0-0.1); Basophils % 0.7 %; Eosinophils # 0.5 10^3/uL (0.0-0.8); Eosinophils % 4.1 %; Hematocrit 28.5 % (37.0-47.0); Lymphocytes # 2.6 10^3/uL (0.8-4.8); Lymphocytes % 20.5 %; Mean Corpuscular HGB Conc 28.1 g/dL (30.0-36.0); Mean Corpuscular Hemoglobin 20.5 pg (28.0-34.0); Mean Corpuscular Volume 72.9 fl (81-99); Mean Platelet Volume 8.3 fL (7.4-10.4); Monocytes # 1.2 10^3/uL (0.2-0.9); Monocytes % 9.7 %; Neutrophils # 8.13 10^3/uL (1.8-7.7); Neutrophils % 64.5 %; Nucleated Red Blood Cells % 0 %; Platelet Count 770 10^3/cmm (130-400); Red Blood Count 3.91 10^6/uL (4.1-5.3); Red Cell Distribution Width 19.9 % (12.1-15.1); White Blood Count 12.6 10^3/uL (4.0-10.0)
[2022-07-28 12:45] LABS: Albumin Level 3.5 g/dL (3.5-5.2); Alkaline Phosphatase 139 U/L (35-105); Aspartate Amino Transferase 22 U/L (0-32); C Reactive Protein 80.5 mg/L (0.0-4.9); Globulin 3.7 g/dL (1.3-4.6); Glomerular Filtration Rate 122.7 mL/min (90-130); Total Bilirubin 0.2 mg/dL (0.15-1.2); Total Protein 7.2 g/dL (6.6-8.7)
[2022-07-28 12:52] LABS: Vancomycin Trough 16.1 ug/mL (10-15)
[2022-07-28 12:57] LABS: Alanine Aminotransferase 14 U/L (0-33)
== END 2022-08-24 23:59 | disposition home or self-care (01) ==
LOC: LAB 10:26
PROVIDERS: PCP Family Medicine; Visit Provider Student in an Organized Health Care Education/Training Program
DX: M86.9 Osteomyelitis, unspecified (principal); L89.312 Pressure ulcer of right buttock, stage 2; T81.31XD Disruption of external operation (surgical) wound, not elsewhere classified, subsequent encounter; Y83.8 Other surgical procedures as the cause of abnormal reaction of the patient, or of later complication, without mention of misadventure at the time of the procedure
CPT/HCPCS: 11042; 36415; 80076; 80202; 82565; 85025; 86140; 97605; A6237; A6250

== ENCOUNTER 2022-07-31 10:44 | Outpatient (CLI) | payer MEDICARE, OTHER, SELFPAY ==
[2022-07-31 11:45] LABS: Basophils # 0.1 10^3/uL (0.0-0.1); Basophils % 0.5 %; Eosinophils # 0.5 10^3/uL (0.0-0.8); Eosinophils % 2.9 %; Hematocrit 29.9 % (37.0-47.0); Hemoglobin 8.4 g/dL (11.5-15.3); Lymphocytes % 12.9 %; Mean Corpuscular HGB Conc 28.1 g/dL (30.0-36.0); Mean Corpuscular Hemoglobin 20.5 pg (28.0-34.0); Mean Corpuscular Volume 72.9 fl (81-99); Mean Platelet Volume 8.1 fL (7.4-10.4); Monocytes # 1.6 10^3/uL (0.2-0.9); Neutrophils # 11.36 10^3/uL (1.8-7.7); Neutrophils % 72.2 %; Nucleated Red Blood Cells % 0 %; Platelet Count 754 10^3/cmm (130-400); Red Cell Distribution Width 19.9 % (12.1-15.1); White Blood Count 15.7 10^3/uL (4.0-10.0)
[2022-07-31 12:07] LABS: Alanine Aminotransferase 14 U/L (0-33); Albumin Level 3.3 g/dL (3.5-5.2); Alkaline Phosphatase 179 U/L (35-105); Aspartate Amino Transferase 15 U/L (0-32); C Reactive Protein 164.7 mg/L (0.0-4.9); Glomerular Filtration Rate 83.2 mL/min (90-130); Total Bilirubin 0.2 mg/dL (0.15-1.2); Total Protein 7.3 g/dL (6.6-8.7)
== END 2022-07-31 10:45 | disposition home or self-care (01) ==
PROVIDERS: PCP Family Medicine; Referring Provider Student in an Organized Health Care Education/Training Program; Visit Provider Urology
DX: M86.9 Osteomyelitis, unspecified (principal)
CPT/HCPCS: 36415; 80076; 82565; 85025; 86140; 99214

== ENCOUNTER 2022-08-06 06:49 | Day surgery (SDC) | payer MEDICARE, OTHER, SELFPAY ==
[2022-08-05 08:23] VITALS: BMI 26.4
--- NOTE | 2022-08-05 08:47 | ECG_ITS ---
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 Measurements Intervals [place] Rate: 97 P: 57 CA: 128 QRS: 27 QRSD: 74 T: 41 QT: 344 QTc: 439 Interpretive Statements SINUS RHYTHM No previous ECG available for comparison Electronically Signed On 08-06-2022 2:23:37 CDT by Pooja Almonte M.D. [id number]
--- NOTE | 2022-08-05 09:03 | ANES.PREANE2 ---
Pre-Anesthetic Assessment Height/Weight: Height 1.42 m Weight 53.524 kg Operation Date: 08/06/22 08:20 Proposed Procedures p CYSTOSCOPY , RETROGRADE, URETEROSCOPY POSSIBLE BIOPSY , STENT 74885 MODIFIER 26,N13.30,N28.89(Not Applicable) - J Luis Thornton MD s Retrograde Pyelogram(Left) - J Luis Thornton MD s Ureteroscopy(Not Applicable) - J Luis Thornton MD s Excision Of Urethral Mass/Lesion Biopsy Urethral Mass/Lesion(Not Applicable) - J Luis Thornton MD s Ureteral Stent Placement(Not Applicable) - J Luis Thornton MD Familial anesthetic complications: Unfortunately experienced awareness towards the end of her tubal ligation, woke up with her arms tied down, tape over her eyes, and a tube down her throat, felt last suture going in and felt scissors sitting on her stomach. 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 into the wrong cavity twice - unclear if syrinx occurred first or if myelograms occurred first R lower extremity insensate and decreased sensation on R from T4 down Hip infection leading to R leg weakness Anesthetic Plan ASA status: 4 Anesthesia: General Risk of > 500 ml blood loss (7ml/kg in children): No Medications/Allergies Home Medications Medication Instructions Recorded Confirmed Last Taken Type albuterol sulfate 90 mcg/actuation 2 inh inhalation Q6H PRN Shortness 06/26/20 08/05/22 08/05/22 History aerosol inhaler (ProAir HFA) Of Breath miscellaneous medical supply #1 ea 01/21/22 07/31/22 06/20/22 Rx transfer board #1 ea 01/21/22 07/31/22 06/20/22 Rx wheelchair #1 ea 01/21/22 07/31/22 06/20/22 Rx miscellaneous medical supply See Rx Instructions .Route 01/31/22 08/05/22 06/20/22 Rx .COMPLEX #1 ea celecoxib 200 mg capsule 200 mg PO DAILY 04/04/22 08/05/22 08/05/22 History sennosides 8.6 mg-docusate sodium 1 tab-cap PO DAILY 04/07/22 08/05/22 08/04/22 History 50 mg tablet (Senna with Docusate Sodium) triamcinolone acetonide 0.5 % 1 applic topical TID 7 days #30 04/07/22 08/05/22 08/04/22 Rx topical ointment grams nystatin 100,000 unit/mL oral 4 ml PO QID 7 days #112 mL 06/05/22 08/05/22 08/04/22 Rx suspension chlorhexidine gluconate 4 % 1 applic topical DAILY 5 days #473 06/12/22 08/05/22 08/05/22 Rx topical liquid (Antiseptic Skin mL Cleanser (chlorhexidine)) mupirocin 2 % topical ointment 1 applic topical BID 5 days #22 06/12/22 08/05/22 08/04/22 Rx grams hydroxyzine HCl 50 mg tablet 50 mg PO QID PRN itching and 06/13/22 08/05/22 08/05/22 Rx anxiety #120 tabs paroxetine HCl 40 mg tablet 40 mg PO BEDTIME #90 tabs 06/20/22 08/05/22 08/04/22 Rx cyclobenzaprine 10 mg tablet 10 mg PO TID PRN muscle spasm #90 06/24/22 08/05/22 08/05/22 Rx tabs doxycycline hyclate 100 mg capsule 100 mg PO BID 28 days #56 caps 07/31/22 08/05/22 08/05/22 Rx ashwagandha root extract 500 mg 500 mg PO DAILY 08/05/22 08/05/22 08/04/22 History capsule omeprazole 20 mg capsule,delayed 20 mg PO DAILY 08/05/22 08/05/22 08/05/22 History release Allergies Allergy/AdvReac Type Severity Reaction Status Date / Time gabapentin AdvReac Intermediate ADR-Confusi Verified 07/31/22 13:47 on [facility] Anesthesia Medical History COPD (chronic obstructive pulmonary disease) Glass eye right Hip dislocation, right History of Pseudomonas pneumonia Hydronephrosis, left Hyperlipidemia Sleep apnea Syrinx of spinal cord Unspecified open wound, right hip, initial encounter Surgical History H/O hysterectomy for benign disease History of cholecystectomy History of disarticulation of right hip History of eye surgery Stented coronary artery Family History Mother , at age 72 CAD (coronary artery disease) Cancer Father , at age 81 COPD (chronic obstructive pulmonary disease) CAD (coronary artery disease) Social History Smoking and tobacco status: former smoker Alcohol intake: current Alcohol intake frequency: few times a month Household members: spouse Marital status: Current occupational status: disabled Data Anesthesia Cardiac Studies: No Data to Display
[2022-08-06] VITALS (9 sets, daily range): BP systolic 112–168; BP diastolic 62–93; PULSE 89–102; RESP 12–18; TEMP 36.3–36.6; O2SAT 92–100
--- NOTE | 2022-08-06 07:00 | SC_ITS ---
WS: [id number] EXAMINATION: C-arm [place] for Urology REASON FOR EXAM: Left ureteral obstruction COMPARISON: None available. ORDER DATE: 08/06/2022 7:00 AM FINDINGS: Contrast opacifies the upper collecting system which appears mildly dilated via catheter in the renal pelvis.. SC/C-arm [place] for Urology IMPRESSION: Fluoroscopy time 78.7 seconds
[2022-08-06] MEDS: sodium chloride 0.9% 1,000 ML 30 ML IV (07:30)
--- NOTE | 2022-08-06 08:05 | W.PM.OPSUD ---
Surgery/Procedure H&P Update DATE OF PROCEDURE: August 06, 2022 DATE H&P PERFORMED: 07/31/22 H&P UPDATE INFORMATION: I have reviewed H&P completed within last 30 days, I have examined patient prior to procedure, No changes to prior documentation and H&P is in [facility] EMR on date indicated PREOP DIAGNOSIS: Left ureteral obstruction/mass PLANNED PROCEDURE: Operation Date: 08/06/22 08:20 Proposed Procedures p CYSTOSCOPY , RETROGRADE, URETEROSCOPY POSSIBLE BIOPSY , STENT 41329 MODIFIER 26,N13.30,N28.89(Not Applicable) - J Luis Thornton MD s Retrograde Pyelogram(Left) - J Luis Thornton MD s Ureteroscopy(Not Applicable) - J Luis Thornton MD s Excision Of Urethral Mass/Lesion Biopsy Urethral Mass/Lesion(Not Applicable) - J Luis Thornton MD s Ureteral Stent Placement(Not Applicable) - J Luis Thornton MD
[2022-08-06] MEDS: levofloxacin-dextrose 5 % 500 MG/100 ML PREMIX 100 MG IV (08:35)
[2022-08-06] MEDS: iohexol 300 mg/mL 50 mL Btl (OR ONLY) XX (09:12)
--- NOTE | 2022-08-06 09:31 | P.ANESUD_ITS ---
Pre-Anesthetic Update Pre-Anesthetic Assessment: Date of Surgery/Procedure: 08/06/22 Preop Sharee gnosis: Left ureteral obstruction/mass Proposed Procedure: Operation Date: 08/06/22 08:20 Proposed Procedures p CYSTOSCOPY , RETROGRADE, URETEROSCOPY POSSIBLE BIOPSY , STENT 49601 MODIFIER 26,N13.30,N28.89(Not Applicable) - J Luis Thornton MD s Retrograde Pyelogram(Left) - MD melina Kiran Ureteroscopy(Not Applicable) - J Luis Thornton MD s Excision Of Urethral Mass/Lesion Biopsy Urethral Mass/Lesion(Not Applicable) - J Luis Thornton MD s Ureteral Stent Placement(Not Applicable) - J Luis Thornton MD Any changes to Pre-Anesthetic Assessment?: No Last Intake: Intake Last Liquid Date 08/05/22 Last Liquid Time 21:00 Last Solid Date 08/05/22 Last Solid Time 21:00 Vitals: Temperature 97.8 F 08/06/22 07:33 Temperature Source Temporal Artery S can 08/06/22 07:33 Pulse Rate 102 H 08/06/22 07:33 Respiratory Rate 18 08/06/22 07:33 Blood Pressure 131/93 08/06/22 07:33 Blood Pressure Manuela n 105 08/06/22 07:33 Pulse Oximetry 95 08/06/22 07:33 Oxygen Delivery Me thod Room Air 08/06/22 07:33 Exam: Pre-Anes Outpt Exam: alert, oriented x 3, clear to auscultation bilaterally and regular rate & rhythm Cardiac Studies: No Data to Display
--- NOTE | 2022-08-06 09:36 | P.OP_ITS ---
Operative Report Date of procedure: August 06, 2022 Pre-op diagnosis: Left ureteral obstruction/mass Post-op diagnosis: Left distal ureteral stricture, no identifiable mass Procedure done: 1. Cystoscopy, LEFT: Retrograde ureteropyelogram 2. Left ureteroscopy with dilation of ureteral stricture 3. Left ureteral stent placement (7 Albanian by 24 cm double-pigtail without string) Implants: Left ureteral stent Specimens removed/disposition: None Pathology: None Surgeon: Hillary Estimated blood loss: <10 cc Urine output: Not measured Complications: None Findings: Anesthesia: General Condition: Stable Disposition: PACU Intraoperative findings: * Distinct narrowing of the left distal ureter for approximately 3 to 4 cm consistent with the findings seen on CT scan. * No evidence of intrinsic mass. More consistent with stricture. Ureter proximal to the narrowing was dilated * Including the pyelocalyceal system as well. * No biopsies required. * Stent left indwelling (7 Albanian by 24 cm) with anticipation of long-term use Brief History: Ms. Rivera is a very pleasant 67-year-old white female with a history of left distal ureteral narrowing of unclear etiology and what sounds to be a history of chronic indwelling stents managed by urology in [place]. She was lost to follow-up after a stent was removed and presented here with evidence of left hydronephrosis down to the left distal ureter with soft tissue density was noted and worrisome for possible malignancy. 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 Procedure: After routine preoperative evaluation examination and obtaining of informed consent she was taken to the operating suite on 08/06/2022 where general anesthesia was administered without difficulty after appropriate timeout was performed, SCDs confirmed to be functioning, preoperative antibiotics administered, beta-tapan protocol confirmed. Prepped and draped in usual sterile fashion dorsolithotomy position pain careful attention to avoiding pressure points. 21 Albanian cystoscope with 30 degree lens was introduced into the urethral meatus and advanced into the bladder under videoscopy. The bladder was systematically examined. The findings seen in clinic were confirmed. The ureteral orifice was easier to identify this time with a rigid cystoscopy. There was still the same sort of inflammatory changes with increased bulk of the left trigone but no distinct papillary lesions. The left ureteral orifice lu eared to be somewhat stenosed. A flexible tip guidewire was then advanced up the left ureter without significant difficulty. An open-ended ureteral catheter was advanced easily up the ureter beyond the area of thickening seen on CT scan. Opening ureteral catheter was removed and replaced with a 15 Albanian 4 cm balloon which was used to dilate the distal ureter and this was achieved with fairly low pressures. The wire was then secured to the drapes as a safety wire. A second guidewire passed next to the initial wire and then a 7 Albanian offset semirigid ureteroscope was advanced over the working wire up the left ureter. There were some inflammatory changes associate with dilation in the distal ureter. Scope was passed beyond the area of suspicion and the ureter appeared to be completely normal except for dilation above the area in question. Contrast was injected showing no concerning findings of the dilated ureter pyelocalyceal system. The scope was then backed out slowly contrast injected and showed a distinct narrowing and difficulty filling of the distal ureter consistent with the finding seen on CT scan. Careful inspection of the distal ureter moving the scope from the proximally dilated area down to the ureteral orifice and back several times revealed no intrinsic mass or anything suspicious for neoplastic process. More consistent with scar. Cystoscope was then backloaded over the guidewire and a 7 Albanian by 24 cm double-pigtail stent was advanced over the guidewire through the cystoscope into appropriate position as confirmed via fluoroscopy and cystoscopy. Bladder was drained with a 16 Albanian Bhakta catheter. She tolerated procedure well without complications and was awakened in the operating room and returned to the recovery room in stable condition. PLANS: 1. Anticipate discharge from outpatient surgery 2. Maintain stent at least for now with plans for changing it in 4 to 6 months. This will be beyond the point [facility] so we will make plans for follow-up with local or regional urology assets.
--- NOTE | 2022-08-06 09:43 | PC.NURSE ---
Pt arrived to PACU, solis catheter patent and draining, wound vac in place and running.
[2022-08-06] MEDS: ondansetron 2 mg/ML SDV 2 mL 4 MG IVP (10:24)
[2022-08-06] MEDS: cetylpyridinium Lozenge 1 EACH MUCOUS MEM (10:51)
--- NOTE | 2022-08-06 15:30 | ANE.PACU2 ---
Inpatient post-anesthesia follow up: Airway intact: Yes Vital signs: Temperature 97.6 F Pulse Rate 89 Respiratory Rate 18 Blood Pressure 140/72 Pulse Oximetry 94 Oxygen Delivery Me thod Room Air Oxygen Flow Rate 6 Fraction of Inspir ed Oxygen Hydration adequate: Yes Nausea and vomiting: No Pain level: 2 Mental status: Baseline
== END 2022-08-06 11:20 | disposition home or self-care (01) ==
PROVIDERS: Family Provider Student in an Organized Health Care Education/Training Program; PCP Family Medicine; Visit Provider Urology
PROC: 0TJB8ZZ Inspection of Bladder, Via Natural or Artificial Opening Endoscopic (ICD-10-PCS; CPT 52000; principal; 2022-08-06 08:10)
PROC: (CPT 74420; 2022-08-06 08:10)
PROC: 0TJ98ZZ Inspection of Ureter, Via Natural or Artificial Opening Endoscopic (ICD-10-PCS; CPT 52351; 2022-08-06 08:10)
PROC: (CPT 50605; 2022-08-06 08:10)
DX: N35.92 Unspecified urethral stricture, female (principal); J44.9 Chronic obstructive pulmonary disease, unspecified; K21.9 Gastro-esophageal reflux disease without esophagitis; E78.5 Hyperlipidemia, unspecified; G47.30 Sleep apnea, unspecified; Z87.891 Personal history of nicotine dependence
CPT/HCPCS: 52332; 52344; 76000; 93005; C1874; J1956; J2405; J2704; J2710; J3010; J3490; J7030

== ENCOUNTER → 2022-08-11 12:53 | Outpatient (BNVA) | payer MEDICARE, OTHER, SELFPAY | PROVIDERS: Family Provider Student in an Organized Health Care Education/Training Program; PCP Family Medicine; Visit Provider Thoracic Surgery (Cardiothoracic Vascular Surgery) | DX: T81.31XD Disruption of external operation (surgical) wound, not elsewhere classified, subsequent encounter (principal); Y83.8 Other surgical procedures as the cause of abnormal reaction of the patient, or of later complication, without mention of misadventure at the time of the procedure; I96 Gangrene, not elsewhere classified | CPT/HCPCS: 11042; 97605; A6237 ==

== ENCOUNTER → 2022-08-25 13:01 | Outpatient (BNVA) | payer MEDICARE, OTHER, SELFPAY | PROVIDERS: Family Provider Student in an Organized Health Care Education/Training Program; PCP Family Medicine; Visit Provider Thoracic Surgery (Cardiothoracic Vascular Surgery) | DX: I96 Gangrene, not elsewhere classified (principal); L89.312 Pressure ulcer of right buttock, stage 2; T81.31XD Disruption of external operation (surgical) wound, not elsewhere classified, subsequent encounter; Y83.8 Other surgical procedures as the cause of abnormal reaction of the patient, or of later complication, without mention of misadventure at the time of the procedure | CPT/HCPCS: 97597; 97605; A6237; A6250 ==

== ENCOUNTER → 2022-10-03 13:06 | Outpatient (BNVA) | payer MEDICARE, OTHER, SELFPAY | PROVIDERS: Family Provider Student in an Organized Health Care Education/Training Program; PCP Family Medicine; Visit Provider Thoracic Surgery (Cardiothoracic Vascular Surgery) | DX: T81.31XD Disruption of external operation (surgical) wound, not elsewhere classified, subsequent encounter (principal); Y83.8 Other surgical procedures as the cause of abnormal reaction of the patient, or of later complication, without mention of misadventure at the time of the procedure; L89.892 Pressure ulcer of other site, stage 2 | CPT/HCPCS: 11042; 11045; 97597; 97605; 99212; A6237; A6250 ==

== ENCOUNTER 2022-10-06 10:04 | Outpatient (CLI) | payer MEDICARE, OTHER, SELFPAY ==
--- NOTE | 2022-10-06 10:17 | XR_ITS ---
WS: [id number] XR KUB [id number] REASON FOR EXAM: STONES FINDINGS: Properly positioned left ureteral stent. No urinary tract calculi are identified. No other significant abnormality of the abdomen or soft tissue pelvis. Alteration of right hip and ri ght inferior pubic ramus compatible with previous infection. XR/XR KUB [id number] IMPRESSION: Properly positioned left ureteral stent.
== END 2022-10-06 10:05 | disposition home or self-care (01) ==
LOC: RAD 10:09
PROVIDERS: PCP Family Medicine; Visit Provider Urology
DX: N13.30 Unspecified hydronephrosis (principal); Z96.0 Presence of urogenital implants; G37.9 Demyelinating disease of central nervous system, unspecified; N13.5 Crossing vessel and stricture of ureter without hydronephrosis
CPT/HCPCS: 74018; 99213

== ENCOUNTER → 2022-10-17 12:58 | Outpatient (BNVA) | payer MEDICARE, OTHER, SELFPAY | PROVIDERS: PCP Family Medicine; Visit Provider Thoracic Surgery (Cardiothoracic Vascular Surgery) | DX: T81.31XD Disruption of external operation (surgical) wound, not elsewhere classified, subsequent encounter (principal); Y83.8 Other surgical procedures as the cause of abnormal reaction of the patient, or of later complication, without mention of misadventure at the time of the procedure; L89.892 Pressure ulcer of other site, stage 2 | CPT/HCPCS: 11042; 11045; A6446 ==

== ENCOUNTER → 2022-10-31 12:56 | Outpatient (BNVA) | payer MEDICARE, OTHER, SELFPAY | PROVIDERS: PCP Family Medicine; Visit Provider Thoracic Surgery (Cardiothoracic Vascular Surgery) | DX: T81.31XD Disruption of external operation (surgical) wound, not elsewhere classified, subsequent encounter (principal); Y83.8 Other surgical procedures as the cause of abnormal reaction of the patient, or of later complication, without mention of misadventure at the time of the procedure; L89.212 Pressure ulcer of right hip, stage 2 | CPT/HCPCS: 11042; 11045 ==

== ENCOUNTER 2022-11-10 12:52 | Outpatient (CLI) | payer MEDICARE, OTHER, SELFPAY ==
[2022-11-10 13:23] LABS: Basophils # 0.1 10^3/uL (0.0-0.1); Basophils % 0.4 %; Eosinophils # 0.2 10^3/uL (0.0-0.8); Eosinophils % 1.4 %; Hematocrit 25.7 % (37.0-47.0); Hemoglobin 7.1 g/dL (11.5-15.3); Lymphocytes % 13.3 %; Mean Corpuscular HGB Conc 27.6 g/dL (30.0-36.0); Mean Corpuscular Hemoglobin 18.9 pg (28.0-34.0); Mean Corpuscular Volume 68.4 fl (81-99); Mean Platelet Volume 7.9 fL (7.4-10.4); Monocytes # 1.1 10^3/uL (0.2-0.9); Monocytes % 7.4 %; Neutrophils # 11.36 10^3/uL (1.8-7.7); Neutrophils % 76.8 %; Nucleated Red Blood Cells % 0 %; Platelet Count 845 10^3/cmm (130-400); Red Blood Count 3.76 10^6/uL (4.1-5.3); Red Cell Distribution Width 21.5 % (12.1-15.1); White Blood Count 14.8 10^3/uL (4.0-10.0)
[2022-11-10 13:43] LABS: Alanine Aminotransferase 13 U/L (0-33); Albumin Level 2.9 g/dL (3.5-5.2); Alkaline Phosphatase 154 U/L (35-105); Anion Gap 15.8 (5-19); Aspartate Amino Transferase 15 U/L (0-32); Blood Urea Nitrogen 22 mg/dL (8-23); Calcium 8.6 mg/dL (8.5-10.5); Carbon Dioxide 25 mmol/L (22-29); Chloride 98 mmol/L (98-107); Globulin 4.6 g/dL (1.3-4.6); Glomerular Filtration Rate 99.4 mL/min (90-130); Glucose 96 mg/dL (65-115); Osmolality Calculated 281 mOsm/kg (285-295); Potassium 4.8 mmol/L (3.5-5.1); Sodium 134 mmol/L (136-145); Total Bilirubin 0.2 mg/dL (0.15-1.2); Total Protein 7.5 g/dL (6.6-8.7)
[2022-11-10 13:54] LABS: Prealbumin 11.4 mg/dL (20-40)
--- NOTE | 2022-11-10 14:30 | MR_ITS ---
WS: [id number] MRI OF THE PELVIS WITHOUT AND WITH GADOLINIUM ENHANCEMENT. INDICATION: Ulceration RIGHT buttock. TECHNIQUE: Axial T1, T2, coronal T1, coronal STIR, sagittal T2 fat sat, post gadolinium imaging was o btained with fat saturation technique. COMPARISON: CT July 17, 2022 FINDINGS: Again seen is extensive osseous destruction and fragmentation RIGHT hip due to chronic osteomyelitis. Disarticulation of the RIGHT hip unchanged since the prior examinations. Associated heterotopic bone formation. Soft tissue edema with peripherally enhancing fluid cavity likely due to abscess involvin g the RIGHT hip soft tissues. This extends to involve the RIGHT iliacus along the iliac wing. Small a mount of enhancement involving the RIGHT iliac wing. Enhancement with replacement of the normal bone marrow signal involving the RIGHT acetabulum and ischium suspicious for osteomyelitis. Normal bone ma rrow signal in the sacrum and LEFT pelvis. A few reactive RIGHT inguinal, iliac, pelvic lymph nodes. Bhakta catheter. MR/MR pelvis wo/w con [id number] IMPRESSION: 1. Chronic destructive changes RIGHT hip compatible with chronic osteomyelitis with disarticulation RIGHT hip. This is similar to the prior studies. 2. Peripherally enhancing fluid collection suspicious for abscess in the surro unding hip soft tissues extending along the RIGHT iliacus 3. Enhancement involving the residual RIGHT bony acetabulum extending into the RIGHT ischium suspicious for osteomyelitis. Small amount of enhancement in the RIGHT iliac wing also suspicious. 4. Bhakta catheter.
== END 2022-11-10 12:53 | disposition home or self-care (01) ==
LOC: RAD 12:56
PROVIDERS: PCP Family Medicine; Visit Provider Thoracic Surgery (Cardiothoracic Vascular Surgery)
DX: L89.319 Pressure ulcer of right buttock, unspecified stage (principal); M86.9 Osteomyelitis, unspecified; R93.7 Abnormal findings on diagnostic imaging of other parts of musculoskeletal system; Z96.0 Presence of urogenital implants
CPT/HCPCS: 11042; 11045; 36415; 72197; 80053; 84134; 85025; A6446; A9577

== ENCOUNTER 2022-11-14 14:49 | Outpatient (CLI) | payer MEDICARE, OTHER, SELFPAY ==
[2022-11-14 15:32] LABS: Basophils # 0.1 10^3/uL (0.0-0.1); Basophils % 0.4 %; Eosinophils # 0.2 10^3/uL (0.0-0.8); Eosinophils % 1.2 %; Hematocrit 26.8 % (37.0-47.0); Hemoglobin 7.3 g/dL (11.5-15.3); Lymphocytes # 2.1 10^3/uL (0.8-4.8); Lymphocytes % 12.7 %; Mean Corpuscular HGB Conc 27.2 g/dL (30.0-36.0); Mean Corpuscular Hemoglobin 18.3 pg (28.0-34.0); Mean Corpuscular Volume 67.3 fl (81-99); Mean Platelet Volume 7.6 fL (7.4-10.4); Monocytes # 1.4 10^3/uL (0.2-0.9); Monocytes % 8.2 %; Neutrophils # 12.63 10^3/uL (1.8-7.7); Neutrophils % 77.1 %; Nucleated Red Blood Cells % 0 %; Platelet Count 847 10^3/cmm (130-400); Red Blood Count 3.98 10^6/uL (4.1-5.3); Red Cell Distribution Width 21.3 % (12.1-15.1); White Blood Count 16.4 10^3/uL (4.0-10.0)
== END 2022-11-14 14:50 | disposition home or self-care (01) ==
LOC: LAB 14:53
PROVIDERS: PCP Family Medicine; Visit Provider Nurse Practitioner Family
DX: D64.9 Anemia, unspecified (principal)
CPT/HCPCS: 11042; 11045; 36415; 85025; 86850; 86900

== ENCOUNTER 2022-11-14 16:12 | Emergency (ER) | payer MEDICARE, OTHER, SELFPAY ==
[2022-11-14 16:16] VITALS: BP 97/49; PULSE 97; RESP 16; TEMP 36.7; O2SAT 100; BMI 28.5
[2022-11-14 18:11] VITALS: BP 76/59; PULSE 105; RESP 16; O2SAT 98
--- NOTE | 2022-11-14 18:55 | W.ED.RECABL ---
HPI - Recheck/Abnormal Lab/Rx General: Chief Complaint: Recheck/Abnormal Lab/Rx Stated Complaint: abn labs Time Seen by Provider: 11/14/22 18:19 History of Present Illness: 67 years old female with complex medical history including COPD, osteomyelitis, depression and GERD. She presented emergency room after having abnormal labs done at a local clinic. Patient further reveals that hemoglobin was low but denies any recent GI bleed, coughing up blood or vomiting blood. [place] any weakness, dizziness, chest pain or shortness of breath. Review of Systems General: Reports: 10 or more systems reviewed and unremarkable except in HPI and below PFSH ED PFSH: Medical History COPD (chronic obstructive pulmonary disease) Glass eye right Hip dislocation, right History of Pseudomonas pneumonia Hydronephrosis, left Hyperlipidemia Sleep apnea Syrinx of spinal cord Unspecified open wound, right hip, initial encounter Ureteral stricture, left Appears to be benign pathology. Involves about 3 to 4 cm of the very left distal ureter. No other intrinsic process identified on ureteroscopy. Historically managed with chronic indwelling stent Surgical History H/O hysterectomy for benign disease History of cholecystectomy History of disarticulation of right hip History of eye surgery Stented coronary artery Family History Mother , at age 72 CAD (coronary artery disease) Cancer Father , at age 81 COPD (chronic obstructive pulmonary disease) CAD (coronary artery disease) Social History Smoking and tobacco status: former smoker Alcohol intake: current Alcohol intake frequency: few times a month Household members: spouse Marital status: Current occupational status: disabled Physical Exam Const: COMMON NORMALS: no acute distress, average body habitus, patient oriented x3, no limitations, healthy appearing, alert and well nourished Neck/C-Spine: COMMON NORMALS: full ROM, no lymphadenopathy, supple, no meningeal signs, no JVD, Thyroid normal and No carotid bruits THYROID: Thyroid normal Chest: COMMONS NORMALS: normal inspection of the chest, normal palpation of entire chest wall, normal inspection of the breasts and normal palpation of the breasts Breast/axilla inspection: Yes normal inspection of the breasts BREAST/AXILLA PALPATION: Yes normal palpation of the breasts Resp: COMMON NORMALS: normal respiratory effort, No retractions, No use of accessory muscles, clear to auscultation bilaterally and percussion normal AUSCULTATION: clear to auscultation bilaterally PERCUSSION: percussion normal Cardio: COMMON NORMALS: no JVD Neuro: COMMON NORMALS: patient oriented x3 SENSORIUM/ORIENTATION: Yes alert MENINGEAL SIGNS: Yes no meningeal signs Course Vital Signs: Vital signs: Vital Signs Temperature 98.1 F 11/14/22 16:16 Pulse Rate 99 11/14/22 20:36 Respiratory Rate 16 11/14/22 20:36 Blood Pressure 97/49 11/14/22 20:36 Pulse Oximetry 95 11/14/22 20:36 Oxygen Delivery Me thod Room Air 11/14/22 20:36 MDM - Recheck/Abnormal Lab/Rx Medical Decision Making Patient made comfortable emergency room and had blood work done and was found to have hemoglobin of 7. Outpatient orders was written for blood transfusion in the morning. Disposition and outpatient plan was thoroughly discussed with patient with at bedside. Lab Data 11/14/22 19:21 11/14/22 19:21 Laboratory Results WBC 15.6 10^3/uL (4.0-10.0) H 11/14/22 19:21 RBC 3.78 10^6/uL (4.1-5.3) L 11/14/22 19:21 Hgb 7.0 g/dL (11.5-15.3) L 11/14/22 19: Hct 25.3 % (37.0-47.0) L 11/14/22 19:21 MCV 66.9 fl (81-99) L 11/14/22 19:21 MCH 18.5 pg (28.0-34.0) L 11/14/22 19: MCHC 27.7 g/dL (30.0-36.0) L 11/14/22 19:21 RDW 21.2 % (12.1-15.1) H 11/14/22 19:21 Plt Count 831 10^3/cmm (130-400) H 11/14/22 19:21 MPV 7.9 fL (7.4-10.4) 11/14/22 19:21 Neut % (Auto) 74.0 % 11/14/22 19:21 Lymph % (Auto) 14.7 % 11/14/22 19:21 [place] % (Auto) 8.9 % 11/14/22 19:21 Eos % (Auto) 1.7 % 11/14/22 19:21 Baso % (Auto) 0.3 % 11/14/22 19:21 Neut # (Auto) 11.53 10^3/uL (1.8-7.7) H 11/14/22 19:21 Lymph # (Auto) 2.3 10^3/uL (0.8-4.8) 11/14/22 19:21 [place] # (Auto) 1.4 10^3/uL (0.2-0.9) H 11/14/22 19:21 Eos # (Auto) 0.3 10^3/uL (0.0-0.8) 11/14/22 19:21 Baso # (Auto) 0.1 10^3/uL (0.0-0.1) 11/14/22 19:21 Nucleated RBC % (auto) 0 % 11/14/22 19: Nucleated RBCs # 0.0 /100WBC 11/14/22 19:21 Sodium 135 mmol/L (136-145) L 11/14/22 19:21 Potassium 4.2 mmol/L (3.5-5.1) 11/14/22 19:21 Chloride 100 mmol/L (98-107) 11/14/22 19:21 Carbon Dioxide 24 mmol/L (22-29) 11/14/22 19:21 Anion Gap 15.2 (5-19) 11/14/22 19:21 BUN 13 mg/dL (8-23) 11/14/22 19:21 Creatinine 0.7 mg/dL (0.5-0.9) 11/14/22 19:21 GFR Calculation 83.2 mL/min (90-130) L 11/14/22 19:21 Glucose 127 mg/dL (65-115) H 11/14/22 19:21 Calculated Osmolality 282 mOsm/kg (285-295) L 11/14/22 19:21 Calcium 8.2 mg/dL (8.5-10.5) L 11/14/22 19:21 Total Bilirubin 0.2 mg/dL (0.15-1.2) 11/14/22 19:21 AST 11 U/L (0-32) 11/14/22 19:21 ALT 9 U/L (0-33) 11/14/22 19:21 Alkaline Phosphatase 162 U/L (35-105) H 11/14/22 19:21 Total Protein 7.4 g/dL (6.6-8.7) 11/14/22 19:21 Albumin 2.7 g/dL (3.5-5.2) L 11/14/22 19:21 Globulin 4.7 g/dL (1.3-4.6) H 11/14/22 19:21 Discharge Plan Discharge Patient Disposition: Home Clinical Impression: Anemia Condition: Stable Prescriptions: No Action albuterol sulfate [ProAir HFA] 90 mcg/actuation HFA aerosol inhaler 2 inh inhalation Q6H PRN (Reason: Shortness Of Breath) miscellaneous medical supply Misc See Rx Instructions .ROUTE .COMPLEX Qty: 1 0RF Rx Instructions: please dispense one transfer board; sennosides-docusate sodium [Senna with Docusate Sodium] 8.6-50 mg tablet 1 tab-cap PO DAILY triamcinolone acetonide 0.5 % ointment 1 applic topical TID 7 Days Qty: 30 2RF celecoxib 200 mg capsule 200 mg PO DAILY chlorhexidine gluconate [Antiseptic Skin Clnsr(chlorhe)] 4 % liquid 1 applic topical DAILY 5 Days Qty: 473 5RF Rx Instructions: use to take a bath 5 days a month for 6 months mupirocin 2 % ointment 1 applic topical BID 5 Days Qty: 22 5RF Rx Instructions: apply to both nares, axillary and groin folds 5 days a month for 6 months hydroxyzine HCl 50 mg tablet 50 mg PO QID PRN (Reason: itching and anxiety) Qty: 120 5RF lubricants Gel 1 ea topical ONCE Qty: 1 0RF (DME) miscellaneous medical supply Misc See Rx Instructions .Route Qty: 1 0RF Rx Instructions: As directed (DME) transfer board See Rx Instructions .Route .MEDSUPPLY Qty: 1 0RF Rx Instructions: As directed (DME) wheelchair See Rx Instructions .Route .MEDSUPPLY Qty: 1 0RF Rx Instructions: As directed nystatin 100,000 unit/mL suspension 4 ml PO QID 7 Days Qty: 112 0RF Rx Instructions: swish and swallow paroxetine HCl 40 mg tablet 40 mg PO BEDTIME Qty: 90 3RF cyclobenzaprine 10 mg tablet See Rx Instructions .ROUTE .COMPLEX Qty: 90 0RF Dose Instruction: Take 1 tablet by mouth three times daily as needed for muscle spasm Rx Instructions: Take 1 tablet by mouth three times daily as needed for muscle spasm omeprazole 20 mg Capsule,Delayed Release(Dr/Ec) 20 mg PO DAILY ashwagandha root extract 500 mg Capsule 500 mg PO DAILY Discharge Orders: Discharge ED (Routine); Ordered 11/14/22 Ordered By: Mj Lopez Referrals: Ray Pretty DO [Primary Care Provider] - Patient Instructions: Opioid Safety, Pain Management Coding Level of Care Code ED Biblical Studies Professor for Norma Welsh
[2022-11-14 19:32] LABS: Basophils # 0.1 10^3/uL (0.0-0.1); Basophils % 0.3 %; Eosinophils # 0.3 10^3/uL (0.0-0.8); Eosinophils % 1.7 %; Hematocrit 25.3 % (37.0-47.0); Lymphocytes # 2.3 10^3/uL (0.8-4.8); Lymphocytes % 14.7 %; Mean Corpuscular HGB Conc 27.7 g/dL (30.0-36.0); Mean Corpuscular Hemoglobin 18.5 pg (28.0-34.0); Mean Corpuscular Volume 66.9 fl (81-99); Mean Platelet Volume 7.9 fL (7.4-10.4); Monocytes # 1.4 10^3/uL (0.2-0.9); Monocytes % 8.9 %; Neutrophils # 11.53 10^3/uL (1.8-7.7); Nucleated Red Blood Cells % 0 %; Platelet Count 831 10^3/cmm (130-400); Red Blood Count 3.78 10^6/uL (4.1-5.3); Red Cell Distribution Width 21.2 % (12.1-15.1); White Blood Count 15.6 10^3/uL (4.0-10.0)
[2022-11-14 19:51] LABS: Alanine Aminotransferase 9 U/L (0-33); Albumin Level 2.7 g/dL (3.5-5.2); Alkaline Phosphatase 162 U/L (35-105); Anion Gap 15.2 (5-19); Aspartate Amino Transferase 11 U/L (0-32); Blood Urea Nitrogen 13 mg/dL (8-23); Calcium 8.2 mg/dL (8.5-10.5); Carbon Dioxide 24 mmol/L (22-29); Chloride 100 mmol/L (98-107); Globulin 4.7 g/dL (1.3-4.6); Glomerular Filtration Rate 83.2 mL/min (90-130); Glucose 127 mg/dL (65-115); Osmolality Calculated 282 mOsm/kg (285-295); Potassium 4.2 mmol/L (3.5-5.1); Sodium 135 mmol/L (136-145); Total Bilirubin 0.2 mg/dL (0.15-1.2); Total Protein 7.4 g/dL (6.6-8.7)
[2022-11-14 20:36] VITALS: BP 97/49; PULSE 99; RESP 16; O2SAT 95
--- NOTE | 2022-11-14 20:37 | PC.NURSE ---
blood band on. Order for outpatient blood transfusion given to patient. House sup calling outpt transfusion nurse to know and a time and I am going to call patient back tonight with a time/update of order tomorrow.
== END 2022-11-14 20:42 | disposition home or self-care (01) ==
PROVIDERS: Emergency Provider Family Medicine; PCP Family Medicine
DX: D64.9 Anemia, unspecified (principal); J44.9 Chronic obstructive pulmonary disease, unspecified; E78.5 Hyperlipidemia, unspecified; Z87.891 Personal history of nicotine dependence; T81.31XD Disruption of external operation (surgical) wound, not elsewhere classified, subsequent encounter; Y83.8 Other surgical procedures as the cause of abnormal reaction of the patient, or of later complication, without mention of misadventure at the time of the procedure; L89.212 Pressure ulcer of right hip, stage 2
CPT/HCPCS: 11042; 11045; 36415; 80053; 85025; 86850; 86900; 99283

== ENCOUNTER 2022-11-15 08:39 | Outpatient (CLI) | payer MEDICARE, OTHER, SELFPAY ==
[2022-11-15] VITALS (7 sets, daily range): BP systolic 96–117; BP diastolic 54–68; PULSE 94–101; RESP 14–17; TEMP 36.8–37.1; O2SAT 93–98
[2022-11-15] MEDS: ondansetron 2 mg/ML SDV 2 mL 4 MG IVP (10:22)
[2022-11-15] MEDS: sodium chloride 0.9% 100 mL Bag 50 ML IV (15:06)
== END 2022-11-16 01:30 | disposition home or self-care (01) ==
LOC: OPMS 08:43 → MEDSURG 09:48
PROVIDERS: PCP Family Medicine; Visit Provider Family Medicine
DX: D64.9 Anemia, unspecified (principal); R11.0 Nausea; Z79.899 Other long term (current) drug therapy
CPT/HCPCS: 36430; 86850; 86900; 86920; J2405; P9040

== ENCOUNTER → 2022-11-27 13:34 | Outpatient (BNVA) | payer MEDICARE, OTHER, SELFPAY | PROVIDERS: PCP Nurse Practitioner Family; Visit Provider Student in an Organized Health Care Education/Training Program | DX: L89.323 Pressure ulcer of left buttock, stage 3 (principal); L89.312 Pressure ulcer of right buttock, stage 2; G37.9 Demyelinating disease of central nervous system, unspecified; S71.001A Unspecified open wound, right hip, initial encounter; M48.062 Spinal stenosis, lumbar region with neurogenic claudication; N13.30 Unspecified hydronephrosis; X58.XXXA Exposure to other specified factors, initial encounter | CPT/HCPCS: 87070; 87075; 87205; 99215 ==

== ENCOUNTER 2022-11-28 11:13 | Outpatient (CLI) | payer MEDICARE, OTHER, SELFPAY ==
[2022-11-28 11:32] LABS: Erythrocyte Sedimentation Rate 103 mm/hr (0-15)
[2022-11-28 11:53] LABS: C Reactive Protein 247.3 mg/L (0.0-4.9)
== END 2022-11-28 11:14 | disposition home or self-care (01) ==
PROVIDERS: PCP Nurse Practitioner Family; Visit Provider Student in an Organized Health Care Education/Training Program
DX: L89.312 Pressure ulcer of right buttock, stage 2 (principal); T81.31XD Disruption of external operation (surgical) wound, not elsewhere classified, subsequent encounter; Y83.8 Other surgical procedures as the cause of abnormal reaction of the patient, or of later complication, without mention of misadventure at the time of the procedure
CPT/HCPCS: 11042; 11045; 36415; 85651; 86140; 97597; A6446

== ENCOUNTER 2022-12-10 09:29 | Outpatient (CLI) | payer MEDICARE, OTHER, SELFPAY ==
--- NOTE | 2022-12-10 10:00 | US_ITS ---
WS: [id number] ULTRASOUND GUIDED right hip aspiration. HISTORY: L02.419 - Cutaneous abscess of limb, unspecified Procedure, risks, and complications are explained to the patient. Consent was obtained. Skin is clean sed with ChloraPrep and anesthetized with 1% buffered lidocaine. Comparison: MRI pelvis is reviewed. Previously described large fluid collection identified on MRI is not identified by ultrasound. There is no large fluid collection identified. There is thickening of the soft tissues and a few areas of m ild fluid. Patient describes her hip as constantly draining through an open wound. There was obvious drainage from the wound during the procedure and the bandages were wet. Attempted to identify the largest area of fluid. This area will be targeted for possible aspiration. Skin is cleansed with ChloraPrep and anesthetized with 1% buffered lidocaine. 18-gauge spinal needle is inserted into the collection surrounding the right hip. Very little aspirate was obtained. Small a mount of aspirate was obtained and the needle and placed in a sterile cup. Sterile bandage was placed and the patient is discharged home. IMPRESSION: 1. Very little fluid surrounding the abnormal right hip as seen by MRI. Patient has constant drainage from an open wound. There is no residual fluid collection. Aspirate was obtained in the area that wa s most concerning for fluid. Only a small amount of fluid was aspirated. This will be sent for cultur e and sensitivity. 2. Patient discharged with no complications.
== END 2022-12-10 09:30 | disposition home or self-care (01) ==
LOC: RAD 09:31
PROVIDERS: PCP Nurse Practitioner Family; Visit Provider Student in an Organized Health Care Education/Training Program
DX: L02.415 Cutaneous abscess of right lower limb (principal); M48.062 Spinal stenosis, lumbar region with neurogenic claudication; M86.68 Other chronic osteomyelitis, other site
CPT/HCPCS: 10160; 76942; 87070; 87075; 87077; 87186; 87205

== ENCOUNTER → 2022-12-17 07:49 | Day surgery (SDC) | payer MEDICARE, OTHER, SELFPAY ==
--- NOTE | 2022-12-17 07:48 | XR_ITS ---
WS: [id number] CHEST XRAY TECHNIQUE: Portable chest. CLINICAL INFORMATION: Post PICC placement COMPARISON: 06/20/2022 FINDINGS: RIGHT PICC line with tip at the SVC/RA junction. No pneumothorax. Heart: Normal cardiac silhouette. Lungs: Lungs are clear. No consolidation or pleural effusion. Slight elevation RIGHT hemidiaphragm. Bones: Normal visualized bony structures. Cholecystectomy clips. IMPRESSION: RIGHT PICC line in good position at the SVC/RA junction. No pneumothorax.
[2022-12-17 08:00] VITALS: BP 115/77; PULSE 104; RESP 18; TEMP 36.3; O2SAT 96
--- NOTE | 2022-12-17 09:00 | PC.NURSE ---
Attempted PICC placement to left basilic and brachial veins without success. Veins small and hard to access. Scar tissue noted upon insertion as well. Left attempt aborted. Assessed right basilic vein. Single lumen PICC placed with some difficulty to right basilic vein. Mid-arm circumference measured 10 cm from right AC 24 cm. Trimmed length 36 cm with 1 cm external length noted. CXR shows tip in SVC, in good position for use per radiologist. Line secured with stat lock. Insertion site covered with Biopatch and TSM. PICC report and chest xray faxed to [facility]. Erlinda with Dr. Mojica's office notified of PICC placement as well as difficulty with PICC placement.
[2022-12-17] MEDS: vancomycin 1,000 MG in sodium chloride 0.9% 250 ML 250 MG IV (09:30)
== END ==
PROVIDERS: PCP Nurse Practitioner Family; Visit Provider Student in an Organized Health Care Education/Training Program
DX: M86.659 Other chronic osteomyelitis, unspecified thigh (principal); L02.419 Cutaneous abscess of limb, unspecified; Z79.899 Other long term (current) drug therapy
CPT/HCPCS: 36573; 71045; 96365; J3370; J7050

== ENCOUNTER 2022-12-19 07:04 | Outpatient (RCR) | payer MEDICARE, OTHER, SELFPAY ==
[2022-12-19 07:10] VITALS: BP 105/63; PULSE 100; RESP 18; TEMP 36.8; O2SAT 97
[2022-12-19 07:47] LABS: C Reactive Protein 96.8 mg/L (0.0-4.9); Glomerular Filtration Rate 99.4 mL/min (90-130)
[2022-12-19 08:02] LABS: Vancomycin Trough 22.1 ug/mL (10-15)
== END 2022-12-25 23:59 | disposition home or self-care (01) ==
LOC: GILAB 07:04
PROVIDERS: PCP Nurse Practitioner Family; Visit Provider Student in an Organized Health Care Education/Training Program
DX: M86.659 Other chronic osteomyelitis, unspecified thigh (principal); L02.419 Cutaneous abscess of limb, unspecified; I96 Gangrene, not elsewhere classified; T81.31XD Disruption of external operation (surgical) wound, not elsewhere classified, subsequent encounter; Y83.8 Other surgical procedures as the cause of abnormal reaction of the patient, or of later complication, without mention of misadventure at the time of the procedure; L89.212 Pressure ulcer of right hip, stage 2
CPT/HCPCS: 36592; 80202; 82565; 86140; 97597; 97598; A6446

== ENCOUNTER → 2022-12-23 17:03 | Outpatient (BNVA) | payer MEDICARE, OTHER, SELFPAY | PROVIDERS: PCP Nurse Practitioner Family; Visit Provider Thoracic Surgery (Cardiothoracic Vascular Surgery) | DX: M86.659 Other chronic osteomyelitis, unspecified thigh (principal) | CPT/HCPCS: 80048; 82040; 84134; 85025 ==

== ENCOUNTER → 2022-12-26 09:11 | Outpatient (BNVA) | payer MEDICARE, OTHER, SELFPAY | PROVIDERS: PCP Nurse Practitioner Family; Visit Provider Thoracic Surgery (Cardiothoracic Vascular Surgery) | DX: T81.31XD Disruption of external operation (surgical) wound, not elsewhere classified, subsequent encounter (principal); Y83.8 Other surgical procedures as the cause of abnormal reaction of the patient, or of later complication, without mention of misadventure at the time of the procedure; I96 Gangrene, not elsewhere classified; L89.212 Pressure ulcer of right hip, stage 2 | CPT/HCPCS: 97597; 97598 ==

== ENCOUNTER → 2022-12-30 07:45 | Outpatient (BNVA) | payer MEDICARE, OTHER, SELFPAY | PROVIDERS: PCP Nurse Practitioner Family; Visit Provider Nurse Practitioner Family | DX: I96 Gangrene, not elsewhere classified (principal); M86.651 Other chronic osteomyelitis, right thigh; M86.69 Other chronic osteomyelitis, multiple sites; L89.212 Pressure ulcer of right hip, stage 2; L97.112 Non-pressure chronic ulcer of right thigh with fat layer exposed | CPT/HCPCS: G0277 ==

== ENCOUNTER → 2022-12-31 07:51 | Outpatient (BNVA) | payer MEDICARE, OTHER, SELFPAY | PROVIDERS: PCP Nurse Practitioner Family; Visit Provider Thoracic Surgery (Cardiothoracic Vascular Surgery) | DX: I96 Gangrene, not elsewhere classified (principal); M86.651 Other chronic osteomyelitis, right thigh; M86.69 Other chronic osteomyelitis, multiple sites; L89.212 Pressure ulcer of right hip, stage 2; L97.112 Non-pressure chronic ulcer of right thigh with fat layer exposed | CPT/HCPCS: 11042; 97597; A6446; G0277 ==

== ENCOUNTER → 2023-01-05 07:53 | Outpatient (BNVA) | payer MEDICARE, OTHER, SELFPAY | PROVIDERS: PCP Nurse Practitioner Family; Visit Provider Thoracic Surgery (Cardiothoracic Vascular Surgery) | DX: M86.68 Other chronic osteomyelitis, other site (principal); I96 Gangrene, not elsewhere classified; L89.212 Pressure ulcer of right hip, stage 2 | CPT/HCPCS: G0277 ==

== ENCOUNTER → 2023-01-06 07:49 | Outpatient (BNVA) | payer MEDICARE, OTHER, SELFPAY | PROVIDERS: PCP Nurse Practitioner Family; Visit Provider Nurse Practitioner Family | DX: M86.68 Other chronic osteomyelitis, other site (principal); I96 Gangrene, not elsewhere classified; L89.212 Pressure ulcer of right hip, stage 2 | CPT/HCPCS: G0277 ==

== ENCOUNTER → 2023-01-07 08:06 | Outpatient (BNVA) | payer MEDICARE, OTHER, SELFPAY | PROVIDERS: PCP Nurse Practitioner Family; Visit Provider Thoracic Surgery (Cardiothoracic Vascular Surgery) | DX: L89.212 Pressure ulcer of right hip, stage 2; M86.68 Other chronic osteomyelitis, other site | CPT/HCPCS: 97597; G0277 ==

== ENCOUNTER → 2023-01-08 08:13 | Outpatient (BNVA) | payer MEDICARE, OTHER, SELFPAY | PROVIDERS: PCP Nurse Practitioner Family; Visit Provider Nurse Practitioner Family | DX: M86.68 Other chronic osteomyelitis, other site (principal); I96 Gangrene, not elsewhere classified; L89.212 Pressure ulcer of right hip, stage 2 | CPT/HCPCS: G0277 ==

== ENCOUNTER → 2023-01-12 07:54 | Outpatient (BNVA) | payer MEDICARE, OTHER, SELFPAY | PROVIDERS: PCP Nurse Practitioner Family; Visit Provider Nurse Practitioner Family | DX: M86.651 Other chronic osteomyelitis, right thigh (principal); L89.892 Pressure ulcer of other site, stage 2; I96 Gangrene, not elsewhere classified | CPT/HCPCS: G0277 ==

== ENCOUNTER → 2023-01-13 16:46 | Outpatient (BNVA) | payer MEDICARE, OTHER, SELFPAY | PROVIDERS: PCP Nurse Practitioner Family; Visit Provider Otolaryngology | DX: T70.0XXA Otitic barotrauma, initial encounter (principal); X58.XXXA Exposure to other specified factors, initial encounter | CPT/HCPCS: 69433; 99202 ==

== ENCOUNTER → 2023-01-14 08:26 | Outpatient (BNVA) | payer MEDICARE, OTHER, SELFPAY | PROVIDERS: PCP Nurse Practitioner Family; Visit Provider Nurse Practitioner Family | DX: T81.31XD Disruption of external operation (surgical) wound, not elsewhere classified, subsequent encounter (principal); I96 Gangrene, not elsewhere classified; Y83.8 Other surgical procedures as the cause of abnormal reaction of the patient, or of later complication, without mention of misadventure at the time of the procedure; L89.212 Pressure ulcer of right hip, stage 2 | CPT/HCPCS: 11042 ==

== ENCOUNTER → 2023-01-15 07:51 | Outpatient (BNVA) | payer MEDICARE, OTHER, SELFPAY | PROVIDERS: PCP Nurse Practitioner Family; Visit Provider Nurse Practitioner Family | DX: I96 Gangrene, not elsewhere classified (principal); M86.651 Other chronic osteomyelitis, right thigh; L89.892 Pressure ulcer of other site, stage 2 | CPT/HCPCS: G0277 ==

== ENCOUNTER 2023-01-16 10:48 | Outpatient (RCR) | payer MEDICARE, OTHER, SELFPAY ==
[2022-12-26 08:00] VITALS: BP 120/69; PULSE 97; RESP 18; TEMP 36.2; O2SAT 96
[2022-12-26 09:01] LABS: C Reactive Protein 77.6 mg/L (0.0-4.9); Glomerular Filtration Rate 99.4 mL/min (90-130)
--- NOTE | 2022-12-26 09:11 | PC.NURSE ---
Vanc trough of 20.0 called to [place] Pharmacist. Informed pharmacist that patient is to start hyperbaric oxygen treatments at [facility] next week at 0800. Pt to adjust dose up 1 hour Thursday, Thursday, and Thursday to reach goal of 0600 for infusion start time prior to HBO treatments.
[2023-01-02 11:05] VITALS: BP 116/78; PULSE 100; RESP 18; TEMP 36.2; O2SAT 98
[2023-01-02 11:50] LABS: C Reactive Protein 75.5 mg/L (0.0-4.9); Glomerular Filtration Rate 99.4 mL/min (90-130)
[2023-01-02 12:10] LABS: Vancomycin Trough 26.4 ug/mL (10-15)
[2023-01-09 11:00] VITALS: BP 96/63; PULSE 106; RESP 18; TEMP 36.4; O2SAT 95
[2023-01-09 11:39] LABS: Vancomycin Trough 23.5 ug/mL (10-15)
[2023-01-09 12:50] LABS: C Reactive Protein 127.1 mg/L (0.0-4.9); Glomerular Filtration Rate 83.2 mL/min (90-130)
[2023-01-16 11:00] VITALS: BP 104/65; PULSE 95; RESP 18; TEMP 36.4; O2SAT 92
--- NOTE | 2023-01-16 11:05 | PC.NURSE ---
Orders received to pull PICC line to right upper arm per Dr. Mojica. Old dressing removed, site cleaned with CHG, and cath removed. 36 cm noted with tip intact. Pressure held until hemostasis obtained. Site without redness, draniange, or bleeding noted. Pt instructed to return to ED if SOB or bleeding noted.
== END 2023-01-24 23:59 | disposition home or self-care (01) ==
LOC: GILAB 10:48
PROVIDERS: PCP Nurse Practitioner Family; Visit Provider Student in an Organized Health Care Education/Training Program
DX: M86.68 Other chronic osteomyelitis, other site (principal); L02.419 Cutaneous abscess of limb, unspecified
CPT/HCPCS: 36592; 80202; 82565; 86140; 99212; G0277

== ENCOUNTER → 2023-01-20 07:50 | Outpatient (BNVA) | payer MEDICARE, OTHER, SELFPAY | PROVIDERS: PCP Nurse Practitioner Family; Visit Provider Nurse Practitioner Family | DX: M86.651 Other chronic osteomyelitis, right thigh (principal); I96 Gangrene, not elsewhere classified; L89.212 Pressure ulcer of right hip, stage 2; T81.31XD Disruption of external operation (surgical) wound, not elsewhere classified, subsequent encounter; Y83.8 Other surgical procedures as the cause of abnormal reaction of the patient, or of later complication, without mention of misadventure at the time of the procedure | CPT/HCPCS: 97597; G0277 ==

== ENCOUNTER → 2023-01-21 07:47 | Outpatient (BNVA) | payer MEDICARE, OTHER, SELFPAY | PROVIDERS: PCP Nurse Practitioner Family; Visit Provider Thoracic Surgery (Cardiothoracic Vascular Surgery) | DX: I96 Gangrene, not elsewhere classified (principal); L89.212 Pressure ulcer of right hip, stage 2; T81.31XD Disruption of external operation (surgical) wound, not elsewhere classified, subsequent encounter; Y83.8 Other surgical procedures as the cause of abnormal reaction of the patient, or of later complication, without mention of misadventure at the time of the procedure | CPT/HCPCS: 97597; G0277 ==

== ENCOUNTER 2023-01-22 16:11 | Outpatient (CLI) | payer MEDICARE, OTHER, SELFPAY ==
--- NOTE | 2023-01-22 15:30 | USR_ITS ---
PROCEDURE INFORMATION: Exam: US Duplex Right Lower Extremity Veins, Limited Exam date and time: 01/22/2023 4:21 PM Age: 67 years old Clinical indication: Edema, localized; Lower extremity, right; Prior surgery; Surgery date: 6+ months; Surgery type: RT hip surg; Additional info: Evaluate for dvt, chronic immobilization, rle swelling > left, assess for dvt TECHNIQUE: Imaging protocol: Real-time duplex ultrasound of the right extremity with 2-D esteves scale, color Doppler flow and spectral waveform analysis including responses to compression and other maneuvers (when performed) with image documentation. Limited exam was focused on the right lower extremity veins. COMPARISON: CT pelvis w con* [id number] 07/17/2022 9:37 AM FINDINGS: Right deep veins: Unremarkable. The common femoral, femoral, proximal profunda femoral and popliteal veins as well as the visualized deep veins of the lower leg are patent without thrombus. Normal Doppler waveforms. Normal compressibility and/or augmentation response. Superficial veins: Unremarkable. Saphenofemoral junction is patent without thrombus. Soft tissues: Unremarkable. US/[place] [id number] IMPRESSION: No evidence of deep vein thrombosis.
== END 2023-01-22 16:12 | disposition home or self-care (01) ==
PROVIDERS: PCP Nurse Practitioner Family; Visit Provider Student in an Organized Health Care Education/Training Program
DX: M79.89 Other specified soft tissue disorders (principal); Z98.890 Other specified postprocedural states; M86.68 Other chronic osteomyelitis, other site; L02.415 Cutaneous abscess of right lower limb
CPT/HCPCS: 93971; 99215; G0277

== ENCOUNTER → 2023-01-23 08:00 | Outpatient (BNVA) | payer MEDICARE, OTHER, SELFPAY | PROVIDERS: PCP Nurse Practitioner Family; Visit Provider Thoracic Surgery (Cardiothoracic Vascular Surgery) | DX: M86.68 Other chronic osteomyelitis, other site (principal) | CPT/HCPCS: G0277 ==

== ENCOUNTER → 2023-01-26 07:51 | Outpatient (BNVA) | payer MEDICARE, OTHER, SELFPAY | PROVIDERS: PCP Nurse Practitioner Family; Visit Provider Thoracic Surgery (Cardiothoracic Vascular Surgery) | DX: M86.651 Other chronic osteomyelitis, right thigh (principal) | CPT/HCPCS: G0277 ==

== ENCOUNTER → 2023-01-28 07:53 | Outpatient (BNVA) | payer MEDICARE, OTHER, SELFPAY | PROVIDERS: PCP Nurse Practitioner Family; Visit Provider Thoracic Surgery (Cardiothoracic Vascular Surgery) | DX: M86.651 Other chronic osteomyelitis, right thigh (principal); T81.31XD Disruption of external operation (surgical) wound, not elsewhere classified, subsequent encounter; Y83.8 Other surgical procedures as the cause of abnormal reaction of the patient, or of later complication, without mention of misadventure at the time of the procedure; I96 Gangrene, not elsewhere classified; L89.212 Pressure ulcer of right hip, stage 2 | CPT/HCPCS: 11042; 97597; G0277 ==

== ENCOUNTER → 2023-01-29 07:52 | Outpatient (BNVA) | payer MEDICARE, OTHER, SELFPAY | PROVIDERS: PCP Nurse Practitioner Family; Visit Provider Nurse Practitioner Family | DX: M86.651 Other chronic osteomyelitis, right thigh (principal); T81.31XD Disruption of external operation (surgical) wound, not elsewhere classified, subsequent encounter; Y83.8 Other surgical procedures as the cause of abnormal reaction of the patient, or of later complication, without mention of misadventure at the time of the procedure; I96 Gangrene, not elsewhere classified; L89.212 Pressure ulcer of right hip, stage 2 | CPT/HCPCS: G0277 ==

== ENCOUNTER → 2023-01-30 09:36 | Outpatient (BNVA) | payer MEDICARE, OTHER, SELFPAY | PROVIDERS: PCP Nurse Practitioner Family; Visit Provider Thoracic Surgery (Cardiothoracic Vascular Surgery) | DX: M86.651 Other chronic osteomyelitis, right thigh (principal); T81.31XD Disruption of external operation (surgical) wound, not elsewhere classified, subsequent encounter; Y83.8 Other surgical procedures as the cause of abnormal reaction of the patient, or of later complication, without mention of misadventure at the time of the procedure; I96 Gangrene, not elsewhere classified; L89.212 Pressure ulcer of right hip, stage 2 | CPT/HCPCS: G0277 ==

== ENCOUNTER → 2023-02-02 07:51 | Outpatient (BNVA) | payer MEDICARE, OTHER, SELFPAY | PROVIDERS: PCP Nurse Practitioner Family; Visit Provider Thoracic Surgery (Cardiothoracic Vascular Surgery) | DX: M86.651 Other chronic osteomyelitis, right thigh (principal); T81.31XD Disruption of external operation (surgical) wound, not elsewhere classified, subsequent encounter; Y83.8 Other surgical procedures as the cause of abnormal reaction of the patient, or of later complication, without mention of misadventure at the time of the procedure; I96 Gangrene, not elsewhere classified; L89.212 Pressure ulcer of right hip, stage 2 | CPT/HCPCS: G0277 ==

== ENCOUNTER → 2023-02-03 08:05 | Outpatient (BNVA) | payer MEDICARE, OTHER, SELFPAY | PROVIDERS: PCP Nurse Practitioner Family; Visit Provider Nurse Practitioner Family | DX: M86.68 Other chronic osteomyelitis, other site (principal) | CPT/HCPCS: G0277 ==

== ENCOUNTER 2023-02-04 11:24 | Outpatient (CLI) | payer MEDICARE, OTHER, SELFPAY ==
[2023-02-04 12:15] LABS: Basophils % 0.5 %; Eosinophils # 0.2 10^3/uL (0.0-0.8); Eosinophils % 1.7 %; Hematocrit 33.6 % (36-47); Lymphocytes # 2.1 10^3/uL (0.8-4.8); Lymphocytes % 23.3 %; Mean Corpuscular HGB Conc 29.2 g/dL (30-55); Mean Corpuscular Hemoglobin 20.9 pg (27-33); Mean Corpuscular Volume 71.8 fl (85-98); Mean Platelet Volume 8.3 fL (7.4-10.4); Monocytes # 0.7 10^3/uL (0.2-0.9); Monocytes % 7.7 %; Neutrophils # 5.83 10^3/uL (1.8-7.7); Neutrophils % 66.3 %; Nucleated Red Blood Cells % 0 %; Platelet Count 260 10^3/cmm (157-399); Red Blood Count 4.68 10^6/uL (3.85-5.65); Red Cell Distribution Width 22.2 % (12.1-15.1); White Blood Count 8.79 10^3/uL (3.29-11.43)
[2023-02-04 12:34] LABS: Blood Urea Nitrogen 16 mg/dL (8-23); Calcium 8.9 mg/dL (8.5-10.5); Carbon Dioxide 25 mmol/L (22-29); Chloride 100 mmol/L (98-107); Glomerular Filtration Rate 71.3 mL/min (90-130); Glucose 100 mg/dL (65-115); Osmolality Calculated 285 mOsm/kg (285-295); Sodium 137 mmol/L (136-145)
[2023-02-04 12:40] LABS: Anion Gap 16.8 (5-19); Potassium 4.8 mmol/L (3.5-5.1)
== END 2023-02-04 11:25 | disposition home or self-care (01) ==
LOC: LAB 11:28
PROVIDERS: Thoracic Surgery (Cardiothoracic Vascular Surgery); PCP Nurse Practitioner Family; Visit Provider Nurse Practitioner Family
DX: D64.9 Anemia, unspecified (principal); M86.68 Other chronic osteomyelitis, other site; L98.492 Non-pressure chronic ulcer of skin of other sites with fat layer exposed; L89.212 Pressure ulcer of right hip, stage 2; I96 Gangrene, not elsewhere classified
CPT/HCPCS: 36415; 80048; 85025; 97597; G0277

== ENCOUNTER → 2023-02-05 07:57 | Outpatient (BNVA) | payer MEDICARE, OTHER, SELFPAY | PROVIDERS: PCP Nurse Practitioner Family; Visit Provider Nurse Practitioner Family | DX: M86.68 Other chronic osteomyelitis, other site (principal) | CPT/HCPCS: G0277 ==

== ENCOUNTER → 2023-02-06 07:56 | Outpatient (BNVA) | payer MEDICARE, OTHER, SELFPAY | PROVIDERS: PCP Nurse Practitioner Family; Visit Provider Thoracic Surgery (Cardiothoracic Vascular Surgery) | DX: M86.68 Other chronic osteomyelitis, other site (principal) | CPT/HCPCS: G0277 ==

== ENCOUNTER → 2023-02-10 07:58 | Outpatient (BNVA) | payer MEDICARE, OTHER, SELFPAY | PROVIDERS: PCP Nurse Practitioner Family; Visit Provider Nurse Practitioner Family | DX: M86.68 Other chronic osteomyelitis, other site (principal); L89.892 Pressure ulcer of other site, stage 2; T81.31XD Disruption of external operation (surgical) wound, not elsewhere classified, subsequent encounter; Y83.8 Other surgical procedures as the cause of abnormal reaction of the patient, or of later complication, without mention of misadventure at the time of the procedure | CPT/HCPCS: 97597; G0277 ==

== ENCOUNTER → 2023-02-11 07:53 | Outpatient (BNVA) | payer MEDICARE, OTHER, SELFPAY | PROVIDERS: PCP Nurse Practitioner Family; Visit Provider Thoracic Surgery (Cardiothoracic Vascular Surgery) | DX: M86.68 Other chronic osteomyelitis, other site (principal) | CPT/HCPCS: 97597; G0277 ==

== ENCOUNTER → 2023-02-12 07:57 | Outpatient (BNVA) | payer MEDICARE, OTHER, SELFPAY | PROVIDERS: PCP Nurse Practitioner Family; Visit Provider Nurse Practitioner Family | DX: M86.68 Other chronic osteomyelitis, other site (principal) | CPT/HCPCS: G0277 ==

== ENCOUNTER → 2023-02-13 07:57 | Outpatient (BNVA) | payer MEDICARE, OTHER, SELFPAY | PROVIDERS: PCP Nurse Practitioner Family; Visit Provider Thoracic Surgery (Cardiothoracic Vascular Surgery) | DX: M86.68 Other chronic osteomyelitis, other site (principal) | CPT/HCPCS: G0277 ==

== ENCOUNTER → 2023-02-16 08:07 | Outpatient (BNVA) | payer MEDICARE, OTHER, SELFPAY | PROVIDERS: PCP Nurse Practitioner Family; Visit Provider Nurse Practitioner Family | DX: M86.68 Other chronic osteomyelitis, other site (principal) | CPT/HCPCS: G0277 ==

== ENCOUNTER → 2023-02-17 08:02 | Outpatient (BNVA) | payer MEDICARE, OTHER, SELFPAY | PROVIDERS: PCP Nurse Practitioner Family; Visit Provider Nurse Practitioner Family | DX: M86.68 Other chronic osteomyelitis, other site (principal) | CPT/HCPCS: G0277 ==

== ENCOUNTER → 2023-02-18 07:59 | Outpatient (BNVA) | payer MEDICARE, OTHER, SELFPAY | PROVIDERS: PCP Nurse Practitioner Family; Visit Provider Nurse Practitioner Family | DX: M86.68 Other chronic osteomyelitis, other site (principal); L89.892 Pressure ulcer of other site, stage 2; T81.31XD Disruption of external operation (surgical) wound, not elsewhere classified, subsequent encounter; Y83.8 Other surgical procedures as the cause of abnormal reaction of the patient, or of later complication, without mention of misadventure at the time of the procedure | CPT/HCPCS: 11042; 97605; A6237; A6250; G0277 ==

== ENCOUNTER → 2023-02-19 08:18 | Outpatient (BNVA) | payer MEDICARE, OTHER, SELFPAY | PROVIDERS: PCP Nurse Practitioner Family; Visit Provider Nurse Practitioner Family | DX: M86.68 Other chronic osteomyelitis, other site (principal) | CPT/HCPCS: G0277 ==

== ENCOUNTER → 2023-02-20 08:04 | Outpatient (BNVA) | payer MEDICARE, OTHER, SELFPAY | PROVIDERS: PCP Nurse Practitioner Family; Visit Provider Nurse Practitioner Family | DX: M86.68 Other chronic osteomyelitis, other site (principal) | CPT/HCPCS: G0277 ==

== ENCOUNTER 2023-02-23 09:59 | Outpatient (CLI) | payer MEDICARE, OTHER, SELFPAY ==
[2023-02-23] MEDS: gadobenate dimeglumine 20 mL vial IV (11:16)
--- NOTE | 2023-02-23 13:00 | MR_ITS ---
WS: [id number] MRI PELVIS WITH AND WITHOUT CONTRAST. COMPARISON: 11/10/2022 Multiplanar, multisequence imaging is performed with and without contrast. MultiHance 12 mL IV. Patient has a known destructive process at the RIGHT hip. Osseous destruction with displacement of th e RIGHT hip from the acetabular. There is a large amount of increased T2 signal in the soft tissue ce ntered at the RIGHT acetabulum. Destruction of the RIGHT femoral head and neck with lateral and super ior displacement. Abnormal configuration of the acetabulum. The acetabulum is vertical in orientation . There is increased soft tissue surrounding the femoral head and extending into the osseous structur es. Similar to the prior study. Abnormal signal in the remaining acetabulum. There is a very tiny freder[place] unt of increased signal in the remaining destructive bone involving the proximal RIGHT femur. Overall there has been an improvement in the soft tissue signal abnormality and the fluid collection centered at the RIGHT hip disarticulation. There is no residual fluid collection. There is edema and increased T2 signal involving the RIGHT iliacus muscle and the muscle surrounding the proximal RIGHT femur. There is enhancement of the soft tissues consistent with residual chronic myositis and celluli tis. There is minimal enhancement in the acetabulum. No enhancement is identified within the residual RIGHT femur. Visualized sacrum is normal. There are few small bilateral iliac lymph nodes. Bhakta catheter noted. IMPRESSION: 1. Chronic osteomyelitis with dislocation and osseous destruction centered at the RIGHT hip. Chronic disarticulation at the RIGHT hip with superior and lateral dislocation from the acetabulum. 2. Previously described abscess centered in the RIGHT hip joint has significantly improved. No residu al abscess. 2. There is continued enhancement of the soft tissue surrounding the RIGHT hip from cellulitis and my ositis. 3. Improved but persistent osteomyelitis involving the RIGHT acetabulum. No residual enhancement in t he iliac wing.
== END 2023-02-23 10:00 | disposition home or self-care (01) ==
LOC: RAD 09:59
PROVIDERS: PCP Nurse Practitioner Family; Visit Provider Student in an Organized Health Care Education/Training Program
DX: M86.651 Other chronic osteomyelitis, right thigh (principal); M24.351 Pathological dislocation of right hip, not elsewhere classified; L03.115 Cellulitis of right lower limb; M60.851 Other myositis, right thigh
CPT/HCPCS: 72197; A9577; G0277

== ENCOUNTER → 2023-02-25 08:00 | Outpatient (BNVA) | payer MEDICARE, OTHER, SELFPAY | PROVIDERS: PCP Nurse Practitioner Family; Visit Provider Thoracic Surgery (Cardiothoracic Vascular Surgery) | DX: M86.68 Other chronic osteomyelitis, other site (principal); L89.313 Pressure ulcer of right buttock, stage 3; L89.213 Pressure ulcer of right hip, stage 3 | CPT/HCPCS: 97597; A6237; A6250; G0277 ==

== ENCOUNTER → 2023-02-26 07:56 | Outpatient (BNVA) | payer MEDICARE, OTHER, SELFPAY | PROVIDERS: PCP Nurse Practitioner Family; Visit Provider Nurse Practitioner Family | DX: M86.68 Other chronic osteomyelitis, other site (principal) | CPT/HCPCS: G0277 ==

== ENCOUNTER → 2023-03-02 07:54 | Outpatient (BNVA) | payer MEDICARE, OTHER, SELFPAY | PROVIDERS: PCP Nurse Practitioner Family; Visit Provider Thoracic Surgery (Cardiothoracic Vascular Surgery) | DX: M86.68 Other chronic osteomyelitis, other site (principal) | CPT/HCPCS: G0277 ==

== ENCOUNTER 2023-03-04 12:00 | Outpatient (CLI) | payer MEDICARE, OTHER, SELFPAY | END 2023-03-04 12:01 | disposition home or self-care (01) | LOC: RAD 06-26 12:51 | PROVIDERS: PCP Nurse Practitioner Family; Visit Provider Nurse Practitioner Family | DX: M86.68 Other chronic osteomyelitis, other site (principal); L89.892 Pressure ulcer of other site, stage 2; T81.31XD Disruption of external operation (surgical) wound, not elsewhere classified, subsequent encounter; Y83.8 Other surgical procedures as the cause of abnormal reaction of the patient, or of later complication, without mention of misadventure at the time of the procedure | CPT/HCPCS: 11042; 97597; G0277 ==

== ENCOUNTER → 2023-03-06 07:53 | Outpatient (BNVA) | payer MEDICARE, OTHER, SELFPAY | PROVIDERS: PCP Nurse Practitioner Family; Visit Provider Thoracic Surgery (Cardiothoracic Vascular Surgery) | DX: M86.68 Other chronic osteomyelitis, other site (principal) | CPT/HCPCS: G0277 ==

== ENCOUNTER → 2023-03-11 08:02 | Outpatient (BNVA) | payer MEDICARE, OTHER, SELFPAY | PROVIDERS: PCP Nurse Practitioner Family; Visit Provider Thoracic Surgery (Cardiothoracic Vascular Surgery) | DX: M86.68 Other chronic osteomyelitis, other site (principal); L89.892 Pressure ulcer of other site, stage 2; T81.31XD Disruption of external operation (surgical) wound, not elsewhere classified, subsequent encounter; Y83.8 Other surgical procedures as the cause of abnormal reaction of the patient, or of later complication, without mention of misadventure at the time of the procedure | CPT/HCPCS: 97597; 97605; A6237; A6250; G0277 ==

== ENCOUNTER → 2023-03-13 07:55 | Outpatient (BNVA) | payer MEDICARE, OTHER, SELFPAY | PROVIDERS: PCP Nurse Practitioner Family; Visit Provider Thoracic Surgery (Cardiothoracic Vascular Surgery) | DX: M86.68 Other chronic osteomyelitis, other site (principal) | CPT/HCPCS: G0277 ==

== ENCOUNTER → 2023-03-16 08:09 | Outpatient (BNVA) | payer MEDICARE, OTHER, SELFPAY | PROVIDERS: PCP Nurse Practitioner Family; Visit Provider Thoracic Surgery (Cardiothoracic Vascular Surgery) | DX: M86.68 Other chronic osteomyelitis, other site (principal) | CPT/HCPCS: G0277 ==

== ENCOUNTER → 2023-03-17 07:57 | Outpatient (BNVA) | payer MEDICARE, OTHER, SELFPAY | PROVIDERS: PCP Nurse Practitioner Family; Visit Provider Thoracic Surgery (Cardiothoracic Vascular Surgery) | DX: M86.68 Other chronic osteomyelitis, other site (principal) | CPT/HCPCS: G0277 ==

== ENCOUNTER → 2023-03-18 08:00 | Outpatient (BNVA) | payer MEDICARE, OTHER, SELFPAY | PROVIDERS: PCP Nurse Practitioner Family; Visit Provider Thoracic Surgery (Cardiothoracic Vascular Surgery) | DX: I96 Gangrene, not elsewhere classified (principal); L89.892 Pressure ulcer of other site, stage 2; T81.31XD Disruption of external operation (surgical) wound, not elsewhere classified, subsequent encounter; Y83.8 Other surgical procedures as the cause of abnormal reaction of the patient, or of later complication, without mention of misadventure at the time of the procedure; M86.68 Other chronic osteomyelitis, other site | CPT/HCPCS: 97597; 97605; A6237; A6250; G0277 ==

== ENCOUNTER → 2023-03-23 07:55 | Outpatient (BNVA) | payer MEDICARE, OTHER, SELFPAY | PROVIDERS: PCP Nurse Practitioner Family; Visit Provider Nurse Practitioner Family | DX: M86.68 Other chronic osteomyelitis, other site (principal) | CPT/HCPCS: G0277 ==

== ENCOUNTER → 2023-03-25 08:11 | Outpatient (BNVA) | payer MEDICARE, OTHER, SELFPAY | PROVIDERS: PCP Nurse Practitioner Family; Visit Provider Nurse Practitioner Family | DX: T81.31XD Disruption of external operation (surgical) wound, not elsewhere classified, subsequent encounter (principal); Y83.8 Other surgical procedures as the cause of abnormal reaction of the patient, or of later complication, without mention of misadventure at the time of the procedure; L89.892 Pressure ulcer of other site, stage 2; M86.68 Other chronic osteomyelitis, other site | CPT/HCPCS: 11042; A6237; A6250; G0277 ==

== ENCOUNTER → 2023-03-26 08:06 | Outpatient (BNVA) | payer MEDICARE, OTHER, SELFPAY | PROVIDERS: PCP Nurse Practitioner Family; Visit Provider Nurse Practitioner Family | DX: M86.68 Other chronic osteomyelitis, other site (principal) | CPT/HCPCS: G0277 ==

== ENCOUNTER → 2023-03-30 07:53 | Outpatient (BNVA) | payer MEDICARE, OTHER, SELFPAY | PROVIDERS: PCP Nurse Practitioner Family; Visit Provider Thoracic Surgery (Cardiothoracic Vascular Surgery) | DX: T81.31XD Disruption of external operation (surgical) wound, not elsewhere classified, subsequent encounter (principal); Y83.8 Other surgical procedures as the cause of abnormal reaction of the patient, or of later complication, without mention of misadventure at the time of the procedure; L89.892 Pressure ulcer of other site, stage 2; M86.68 Other chronic osteomyelitis, other site | CPT/HCPCS: 11042; 97597; G0277 ==

== ENCOUNTER → 2023-04-01 07:51 | Outpatient (BNVA) | payer MEDICARE, OTHER, SELFPAY | PROVIDERS: PCP Nurse Practitioner Family; Visit Provider Thoracic Surgery (Cardiothoracic Vascular Surgery) | DX: I96 Gangrene, not elsewhere classified (principal); T81.31XD Disruption of external operation (surgical) wound, not elsewhere classified, subsequent encounter; Y83.8 Other surgical procedures as the cause of abnormal reaction of the patient, or of later complication, without mention of misadventure at the time of the procedure; L89.892 Pressure ulcer of other site, stage 2; M86.68 Other chronic osteomyelitis, other site | CPT/HCPCS: 11042; 97597; A6237; A6250; G0277 ==

== ENCOUNTER → 2023-04-03 07:59 | Outpatient (BNVA) | payer MEDICARE, OTHER, SELFPAY | PROVIDERS: PCP Nurse Practitioner Family; Visit Provider Thoracic Surgery (Cardiothoracic Vascular Surgery) | DX: M86.68 Other chronic osteomyelitis, other site (principal) | CPT/HCPCS: G0277 ==

== ENCOUNTER → 2023-04-06 07:58 | Outpatient (BNVA) | payer MEDICARE, OTHER, SELFPAY | PROVIDERS: PCP Nurse Practitioner Family; Visit Provider Thoracic Surgery (Cardiothoracic Vascular Surgery) | DX: M86.68 Other chronic osteomyelitis, other site (principal) | CPT/HCPCS: G0277 ==

== ENCOUNTER → 2023-04-08 10:45 | Outpatient (BNVA) | payer MEDICARE, OTHER, SELFPAY | PROVIDERS: PCP Nurse Practitioner Family; Visit Provider Thoracic Surgery (Cardiothoracic Vascular Surgery) | DX: I96 Gangrene, not elsewhere classified (principal); T81.31XD Disruption of external operation (surgical) wound, not elsewhere classified, subsequent encounter; Y83.8 Other surgical procedures as the cause of abnormal reaction of the patient, or of later complication, without mention of misadventure at the time of the procedure; L89.892 Pressure ulcer of other site, stage 2 | CPT/HCPCS: 11042; 97597; 97605; A6237; A6250 ==

== ENCOUNTER → 2023-04-15 10:57 | Outpatient (BNVA) | payer MEDICARE, OTHER, SELFPAY | PROVIDERS: PCP Nurse Practitioner Family; Visit Provider Thoracic Surgery (Cardiothoracic Vascular Surgery) | DX: I96 Gangrene, not elsewhere classified (principal); T81.31XD Disruption of external operation (surgical) wound, not elsewhere classified, subsequent encounter; Y83.8 Other surgical procedures as the cause of abnormal reaction of the patient, or of later complication, without mention of misadventure at the time of the procedure; L89.892 Pressure ulcer of other site, stage 2 | CPT/HCPCS: 11042; 97597; A6021; A6237; A6250 ==

== ENCOUNTER → 2023-04-22 10:15 | Outpatient (BNVA) | payer MEDICARE, OTHER, SELFPAY | PROVIDERS: PCP Nurse Practitioner Family; Visit Provider Nurse Practitioner Family | DX: I96 Gangrene, not elsewhere classified (principal); T81.31XD Disruption of external operation (surgical) wound, not elsewhere classified, subsequent encounter; Y83.8 Other surgical procedures as the cause of abnormal reaction of the patient, or of later complication, without mention of misadventure at the time of the procedure; L89.892 Pressure ulcer of other site, stage 2 | CPT/HCPCS: 11042; 97605; A6021; A6237; A6250 ==

== ENCOUNTER → 2023-05-08 10:50 | Outpatient (BNVA) | payer MEDICARE, OTHER, SELFPAY | PROVIDERS: PCP Nurse Practitioner Family; Visit Provider Thoracic Surgery (Cardiothoracic Vascular Surgery) | DX: T81.31XD Disruption of external operation (surgical) wound, not elsewhere classified, subsequent encounter (principal); I96 Gangrene, not elsewhere classified; Y83.8 Other surgical procedures as the cause of abnormal reaction of the patient, or of later complication, without mention of misadventure at the time of the procedure; L89.892 Pressure ulcer of other site, stage 2 | CPT/HCPCS: 11042; 97597; 97605; A6021; A6237; A6250 ==

== ENCOUNTER → 2023-05-15 11:16 | Outpatient (BNVA) | payer MEDICARE, OTHER, SELFPAY | PROVIDERS: PCP Nurse Practitioner Family; Visit Provider Thoracic Surgery (Cardiothoracic Vascular Surgery) | DX: T81.31XD Disruption of external operation (surgical) wound, not elsewhere classified, subsequent encounter (principal); Y83.8 Other surgical procedures as the cause of abnormal reaction of the patient, or of later complication, without mention of misadventure at the time of the procedure; L89.212 Pressure ulcer of right hip, stage 2 | CPT/HCPCS: 11042; 97605; A6021; A6237; A6250 ==

== ENCOUNTER → 2023-05-22 11:03 | Outpatient (BNVA) | payer MEDICARE, OTHER, SELFPAY | PROVIDERS: PCP Nurse Practitioner Family; Visit Provider Thoracic Surgery (Cardiothoracic Vascular Surgery) | DX: I96 Gangrene, not elsewhere classified (principal); T81.31XD Disruption of external operation (surgical) wound, not elsewhere classified, subsequent encounter; Y83.8 Other surgical procedures as the cause of abnormal reaction of the patient, or of later complication, without mention of misadventure at the time of the procedure; L89.212 Pressure ulcer of right hip, stage 2 | CPT/HCPCS: 11042; A6021; A6237; A6250 ==

== ENCOUNTER → 2023-05-29 10:57 | Outpatient (BNVA) | payer MEDICARE, OTHER, SELFPAY | PROVIDERS: PCP Nurse Practitioner Family; Visit Provider Thoracic Surgery (Cardiothoracic Vascular Surgery) | DX: T81.31XD Disruption of external operation (surgical) wound, not elsewhere classified, subsequent encounter (principal); Y83.8 Other surgical procedures as the cause of abnormal reaction of the patient, or of later complication, without mention of misadventure at the time of the procedure; L89.212 Pressure ulcer of right hip, stage 2 | CPT/HCPCS: 11042; 97597; A6021 ==

== ENCOUNTER → 2023-06-05 11:08 | Outpatient (BNVA) | payer MEDICARE, OTHER, SELFPAY | PROVIDERS: PCP Nurse Practitioner Family; Visit Provider Thoracic Surgery (Cardiothoracic Vascular Surgery) | DX: T81.31XD Disruption of external operation (surgical) wound, not elsewhere classified, subsequent encounter (principal); Y83.8 Other surgical procedures as the cause of abnormal reaction of the patient, or of later complication, without mention of misadventure at the time of the procedure | CPT/HCPCS: 97597 ==

== ENCOUNTER → 2023-06-15 13:30 | Outpatient (BNVA) | payer MEDICARE, OTHER, SELFPAY | PROVIDERS: PCP Nurse Practitioner Family; Visit Provider Nurse Practitioner Family | DX: Z79.899 Other long term (current) drug therapy (principal) | CPT/HCPCS: 87070; 87077; 87184 ==

== ENCOUNTER → 2023-08-21 09:09 | Outpatient (BNVA) | payer MEDICARE, OTHER, SELFPAY | PROVIDERS: PCP Nurse Practitioner Family; Visit Provider Thoracic Surgery (Cardiothoracic Vascular Surgery) | DX: I96 Gangrene, not elsewhere classified (principal); L89.219 Pressure ulcer of right hip, unspecified stage; L89.899 Pressure ulcer of other site, unspecified stage | CPT/HCPCS: 97597; 99213; A6446 ==

== ENCOUNTER → 2023-09-04 08:58 | Outpatient (BNVA) | payer MEDICARE, OTHER, SELFPAY | PROVIDERS: PCP Nurse Practitioner Family; Visit Provider Thoracic Surgery (Cardiothoracic Vascular Surgery) | DX: I96 Gangrene, not elsewhere classified (principal); L89.219 Pressure ulcer of right hip, unspecified stage; L89.899 Pressure ulcer of other site, unspecified stage | CPT/HCPCS: 97597; A6220 ==

== ENCOUNTER → 2023-09-18 09:48 | Outpatient (BNVA) | payer MEDICARE, OTHER, SELFPAY | PROVIDERS: PCP Nurse Practitioner Family; Visit Provider Thoracic Surgery (Cardiothoracic Vascular Surgery) | DX: I96 Gangrene, not elsewhere classified (principal); L89.212 Pressure ulcer of right hip, stage 2; L89.892 Pressure ulcer of other site, stage 2 | CPT/HCPCS: 97597 ==

== ENCOUNTER → 2023-10-02 10:40 | Outpatient (BNVA) | payer MEDICARE, OTHER, SELFPAY | PROVIDERS: PCP Nurse Practitioner Family; Visit Provider Thoracic Surgery (Cardiothoracic Vascular Surgery) | DX: I96 Gangrene, not elsewhere classified (principal); L89.212 Pressure ulcer of right hip, stage 2; L89.892 Pressure ulcer of other site, stage 2 | CPT/HCPCS: 97597; A6237; A6250; A6252 ==

== ENCOUNTER → 2023-10-13 11:00 | Outpatient (BNVA) | payer MEDICARE, OTHER, SELFPAY | PROVIDERS: PCP Nurse Practitioner Family; Visit Provider Student in an Organized Health Care Education/Training Program | DX: M86.652 Other chronic osteomyelitis, left thigh (principal); Z79.899 Other long term (current) drug therapy | CPT/HCPCS: 99214 ==

== ENCOUNTER 2023-10-16 11:35 | Outpatient (CLI) | payer MEDICARE, OTHER, SELFPAY ==
[2023-10-16 12:08] LABS: Basophils % 0.4 %; Eosinophils # 0.4 10^3/uL (0.0-0.8); Eosinophils % 4.5 %; Hematocrit 39.5 % (36-47); Lymphocytes # 2.3 10^3/uL (0.8-4.8); Lymphocytes % 29.5 %; Mean Corpuscular HGB Conc 30.6 g/dL (30-55); Mean Corpuscular Hemoglobin 25.9 pg (27-33); Mean Corpuscular Volume 84.4 fl (85-98); Mean Platelet Volume 8.2 fL (7.4-10.4); Monocytes # 0.7 10^3/uL (0.2-0.9); Monocytes % 8.4 %; Neutrophils # 4.38 10^3/uL (1.8-7.7); Neutrophils % 56.9 %; Nucleated Red Blood Cells % 0 %; Platelet Count 394 10^3/cmm (157-399); Red Blood Count 4.68 10^6/uL (3.85-5.65); Red Cell Distribution Width 16.4 % (12.1-15.1)
[2023-10-16 12:11] LABS: Erythrocyte Sedimentation Rate 31 mm/hr (0-15)
[2023-10-16 12:28] LABS: Alanine Aminotransferase 15 U/L (0-33); Alkaline Phosphatase 158 U/L (35-105); Anion Gap 16.3 (5-19); Aspartate Amino Transferase 23 U/L (0-32); Blood Urea Nitrogen 16 mg/dL (8-23); C Reactive Protein 21.1 mg/L (0.0-4.9); Calcium 9.7 mg/dL (8.5-10.5); Carbon Dioxide 25 mmol/L (22-29); Chloride 99 mmol/L (98-107); Globulin 4.1 g/dL (1.3-4.6); Glucose 117 mg/dL (65-115); Osmolality Calculated 284 mOsm/kg (285-295); Potassium 4.3 mmol/L (3.5-5.1); Sodium 136 mmol/L (136-145); Total Bilirubin 0.2 mg/dL (0.15-1.2); Total Protein 8.1 g/dL (6.6-8.7)
== END 2023-10-16 11:36 | disposition home or self-care (01) ==
PROVIDERS: PCP Nurse Practitioner Family; Visit Provider Student in an Organized Health Care Education/Training Program
DX: M86.659 Other chronic osteomyelitis, unspecified thigh (principal); Z79.899 Other long term (current) drug therapy
CPT/HCPCS: 80053; 85025; 85651; 86140; 97597

== ENCOUNTER → 2023-11-20 09:49 | Outpatient (BNVA) | payer MEDICARE, OTHER, SELFPAY | PROVIDERS: PCP Nurse Practitioner Family; Visit Provider Thoracic Surgery (Cardiothoracic Vascular Surgery) | DX: I96 Gangrene, not elsewhere classified (principal); L89.212 Pressure ulcer of right hip, stage 2; L89.892 Pressure ulcer of other site, stage 2 | CPT/HCPCS: 97597 ==

== ENCOUNTER → 2023-12-04 10:21 | Outpatient (BNVA) | payer MEDICARE, OTHER, SELFPAY | PROVIDERS: PCP Nurse Practitioner Family; Visit Provider Thoracic Surgery (Cardiothoracic Vascular Surgery) | DX: I96 Gangrene, not elsewhere classified (principal); L89.212 Pressure ulcer of right hip, stage 2; L89.892 Pressure ulcer of other site, stage 2 | CPT/HCPCS: 97597; A6210 ==

== ENCOUNTER → 2023-12-07 14:26 | Outpatient (BNVA) | payer MEDICARE, OTHER, SELFPAY | PROVIDERS: PCP Nurse Practitioner Family; Visit Provider Nurse Practitioner Family | DX: M19.011 Primary osteoarthritis, right shoulder (principal) | CPT/HCPCS: 73030 ==

== ENCOUNTER → 2023-12-18 09:45 | Outpatient (BNVA) | payer MEDICARE, OTHER, SELFPAY | PROVIDERS: PCP Nurse Practitioner Family; Visit Provider Thoracic Surgery (Cardiothoracic Vascular Surgery) | DX: I96 Gangrene, not elsewhere classified (principal); L89.212 Pressure ulcer of right hip, stage 2; Z09 Encounter for follow-up examination after completed treatment for conditions other than malignant neoplasm | CPT/HCPCS: 97597 ==

== ENCOUNTER → 2024-01-06 13:40 | Outpatient (BNVA) | payer MEDICARE, OTHER, SELFPAY | PROVIDERS: PCP Nurse Practitioner Family; Visit Provider Thoracic Surgery (Cardiothoracic Vascular Surgery) | DX: I96 Gangrene, not elsewhere classified (principal); L89.212 Pressure ulcer of right hip, stage 2 | CPT/HCPCS: 97597 ==

== ENCOUNTER → 2024-01-27 13:58 | Outpatient (BNVA) | payer MEDICARE, OTHER, SELFPAY | PROVIDERS: PCP Nurse Practitioner Family; Visit Provider Thoracic Surgery (Cardiothoracic Vascular Surgery) | DX: I96 Gangrene, not elsewhere classified (principal); L89.893 Pressure ulcer of other site, stage 3; L89.212 Pressure ulcer of right hip, stage 2 | CPT/HCPCS: 97597 ==

== ENCOUNTER → 2024-02-24 12:58 | Outpatient (BNVA) | payer MEDICARE, OTHER, SELFPAY | PROVIDERS: PCP Nurse Practitioner Family; Visit Provider Thoracic Surgery (Cardiothoracic Vascular Surgery) | DX: I96 Gangrene, not elsewhere classified (principal); L89.893 Pressure ulcer of other site, stage 3; L89.212 Pressure ulcer of right hip, stage 2 | CPT/HCPCS: 97597; A6210 ==

== ENCOUNTER → 2024-03-09 12:58 | Outpatient (BNVA) | payer MEDICARE, OTHER, SELFPAY | PROVIDERS: PCP Nurse Practitioner Family; Visit Provider Thoracic Surgery (Cardiothoracic Vascular Surgery) | DX: I96 Gangrene, not elsewhere classified (principal); L89.214 Pressure ulcer of right hip, stage 4 | CPT/HCPCS: 97597 ==

== ENCOUNTER → 2024-03-29 12:57 | Outpatient (BNVA) | payer MEDICARE, OTHER, SELFPAY | PROVIDERS: PCP Nurse Practitioner Family; Visit Provider Student in an Organized Health Care Education/Training Program | DX: M86.651 Other chronic osteomyelitis, right thigh; L02.415 Cutaneous abscess of right lower limb | CPT/HCPCS: 36415; 80053; 85025; 85651; 86140; 99213 ==

== ENCOUNTER → 2024-03-30 13:28 | Outpatient (BNVA) | payer MEDICARE, OTHER, SELFPAY | PROVIDERS: PCP Nurse Practitioner Family; Visit Provider Thoracic Surgery (Cardiothoracic Vascular Surgery) | DX: I96 Gangrene, not elsewhere classified (principal); L89.214 Pressure ulcer of right hip, stage 4; L89.893 Pressure ulcer of other site, stage 3 | CPT/HCPCS: 97597 ==

== ENCOUNTER → 2024-05-11 13:06 | Outpatient (BNVA) | payer MEDICARE, OTHER, SELFPAY | PROVIDERS: PCP Nurse Practitioner Family; Visit Provider Thoracic Surgery (Cardiothoracic Vascular Surgery) | DX: I96 Gangrene, not elsewhere classified (principal); L89.214 Pressure ulcer of right hip, stage 4; L89.893 Pressure ulcer of other site, stage 3 | CPT/HCPCS: 97597 ==

== ENCOUNTER 2024-05-18 17:40 | Outpatient (CLI) | payer MEDICARE, OTHER, SELFPAY | END 2024-05-18 17:41 | disposition home or self-care (01) | PROVIDERS: PCP Nurse Practitioner Family; Visit Provider Thoracic Surgery (Cardiothoracic Vascular Surgery) | DX: L89.214 Pressure ulcer of right hip, stage 4 (principal) | CPT/HCPCS: 87070 ==

== ENCOUNTER → 2024-06-22 13:05 | Outpatient (BNVA) | payer MEDICARE, OTHER, SELFPAY | PROVIDERS: PCP Nurse Practitioner Family; Visit Provider Thoracic Surgery (Cardiothoracic Vascular Surgery) | DX: I96 Gangrene, not elsewhere classified (principal); L89.214 Pressure ulcer of right hip, stage 4; Z09 Encounter for follow-up examination after completed treatment for conditions other than malignant neoplasm | CPT/HCPCS: 97597; A6210 ==

== ENCOUNTER 2024-06-24 15:36 | Outpatient (CLI) | payer MEDICARE, OTHER, SELFPAY ==
--- NOTE | 2024-06-24 16:00 | MR_ITS ---
WS: [id number] MRI PELVIS WITH AND WITHOUT CONTRAST. COMPARISON: 02/23/2023 Multiplanar, multisequence imaging is performed with and without contrast. MultiHance 12 mL. As per history resection of the RIGHT femoral head. Amputation site is high riding and laterally displaced from the acetabulum. The extent of soft tissue and muscle inflammation described on 02/23/2023 has significantly improved. There is a small amount of edema along the RIGHT iliacus muscle. Small amount of edema along the tract over the lateral hip. There is a tiny fluid collection measuring 16 x 12 mm just lateral to the ischium. Minimal peripheral enhancement on the postcontrast imaging. There is still mild soft tissue enhancement particularly along the soft tissue tract. There is enhancement encasing the postoperative amputation site of the femur. There is edema at the amputation site involving the greater trochanter. There is also slight enhancement. There is enhancement along the tract extending to the tuberosity. Very small abscess measuring 10 x 4 mm is suspected involving the amputation site, just deep to the tract. There are also a few small lymph nodes at the RIGHT groin. MR/MR pelvis wo/w con [id number] IMPRESSION: 1. Since the prior study amputation of the RIGHT femoral head. 2. Improved cellulitis involving the RIGHT pelvis. 3. There is continued enhancement along the soft tissue decubitus ulcer tract leading to the greater trochanter at the amputation site. There is a very tiny abscess suspected measuring 10 x 4 mm with slight enhancement noted at the grea ter trochanter. Highly suspicious for cellulitis and osteomyelitis with a tiny abscess. 4. Additional fluid collection lateral to the ischium with minimal enhancement . This may be a secondary abscess measuring 16 x 12 mm. Less enhancement theref ore this may be as benign postoperative seroma. 5. RIGHT inguinal lymph nodes with enhancement.
[2024-06-24 16:04] LABS: Basophils % 0.5 %; Eosinophils # 0.2 10^3/uL (0.0-0.8); Eosinophils % 2.6 %; Hematocrit 41.2 % (36-47); Lymphocytes # 2.1 10^3/uL (0.8-4.8); Mean Corpuscular HGB Conc 30.1 g/dL (30-55); Mean Corpuscular Hemoglobin 26.9 pg (27-33); Mean Corpuscular Volume 89.4 fl (85-98); Mean Platelet Volume 8.1 fL (7.4-10.4); Monocytes # 0.8 10^3/uL (0.2-0.9); Neutrophils # 4.47 10^3/uL (1.8-7.7); Neutrophils % 58.5 %; Nucleated Red Blood Cells % 0 %; Platelet Count 283 10^3/cmm (157-399); Red Blood Count 4.61 10^6/uL (3.85-5.65); Red Cell Distribution Width 16.1 % (12.1-15.1); White Blood Count 7.64 10^3/uL (3.29-11.43)
[2024-06-24 16:31] LABS: Alanine Aminotransferase 18 U/L (0-33); Albumin Level 3.7 g/dL (3.5-5.2); Alkaline Phosphatase 139 U/L (35-105); Anion Gap 16.8 (5-19); Aspartate Amino Transferase 26 U/L (0-32); Blood Urea Nitrogen 9 mg/dL (8-23); C Reactive Protein 42.7 mg/L (0.0-4.9); Calcium 8.7 mg/dL (8.5-10.5); Carbon Dioxide 25 mmol/L (22-29); Chloride 101 mmol/L (98-107); Globulin 3.5 g/dL (1.3-4.6); Glomerular Filtration Rate 49.1 mL/min (90-130); Glucose 97 mg/dL (65-115); Osmolality Calculated 287 mOsm/kg (285-295); Potassium 3.8 mmol/L (3.5-5.1); Sodium 139 mmol/L (136-145); Total Bilirubin 0.2 mg/dL (0.15-1.2); Total Protein 7.2 g/dL (6.6-8.7)
[2024-06-24] MEDS: gadobenate dimeglumine 20 mL vial IV (16:53)
== END 2024-06-24 15:37 | disposition home or self-care (01) ==
PROVIDERS: PCP Nurse Practitioner Family; Visit Provider Thoracic Surgery (Cardiothoracic Vascular Surgery)
DX: M86.651 Other chronic osteomyelitis, right thigh (principal); L89.214 Pressure ulcer of right hip, stage 4; S00-T88 Injury, poisoning and certain other consequences of external causes; X58.XXXD Exposure to other specified factors, subsequent encounter; N73.2 Unspecified parametritis and pelvic cellulitis; R93.89 Abnormal findings on diagnostic imaging of other specified body structures; R59.0 Localized enlarged lymph nodes
CPT/HCPCS: 36415; 72197; 80053; 85025; 86140

== ENCOUNTER 2024-06-28 16:01 | Outpatient (CLI) | payer MEDICARE, OTHER, SELFPAY ==
[2024-06-28 16:55] LABS: Bilirubin Urine Negative (Negative); Blood Urine 2+ (Negative); Glucose Urine UA Negative (Normal); Ketones Urine Negative (Negative); Leukocyte Esterase Urine 3+ (Negative); Nitrate Urine Positive (Negative); Protein Urine 2+ (Negative); Urine Appearance Cloudy (CLEAR); Urine Color Yellow (Yellow); Urobilinogen Urine 0.2 mg/dL (Negative)
[2024-06-28 17:08] LABS: Add Urine Microscopic? YES; Bacteria Urine 2+ /hpf; Hyaline Casts Urine 0-4 /lpf; RBC Urine 0-4 /hpf (0-2); Squamous Epithelial Cell Urine 0-4 /hpf (0-5); UA Manual Slide Review YES; UA Slide Review UA Slide Review Perf; WBC Urine 51-100 /hpf (0-5)
== END 2024-06-28 16:02 | disposition home or self-care (01) ==
PROVIDERS: PCP Nurse Practitioner Family; Visit Provider Nurse Practitioner Family
DX: N39.0 Urinary tract infection, site not specified (principal)
CPT/HCPCS: 81001; 87086

== ENCOUNTER → 2024-07-18 09:40 | Outpatient (BNVA) | payer MEDICARE, OTHER, SELFPAY | PROVIDERS: PCP Nurse Practitioner Family; Visit Provider Student in an Organized Health Care Education/Training Program | DX: N13.5 Crossing vessel and stricture of ureter without hydronephrosis (principal); N39.0 Urinary tract infection, site not specified; G03.9 Meningitis, unspecified; Z96.0 Presence of urogenital implants | CPT/HCPCS: 99215 ==

== ENCOUNTER 2024-07-20 12:17 | Outpatient (CLI) | payer MEDICARE, OTHER, SELFPAY ==
[2024-07-20 13:03] LABS: Basophils % 0.4 %; Eosinophils # 0.1 10^3/uL (0.0-0.8); Eosinophils % 0.9 %; Lymphocytes % 17.8 %; Mean Corpuscular HGB Conc 31.8 g/dL (30-55); Mean Corpuscular Volume 85.1 fl (85-98); Mean Platelet Volume 8.1 fL (7.4-10.4); Monocytes # 1.1 10^3/uL (0.2-0.9); Monocytes % 10.3 %; Neutrophils % 70.1 %; Nucleated Red Blood Cells % 0 %; Platelet Count 350 10^3/cmm (157-399); Red Cell Distribution Width 15.7 % (12.1-15.1); White Blood Count 10.97 10^3/uL (3.29-11.43)
[2024-07-20 13:08] LABS: Erythrocyte Sedimentation Rate 47 mm/hr (0-15)
[2024-07-20 13:26] LABS: Alanine Aminotransferase 13 U/L (0-33); Albumin Level 3.9 g/dL (3.5-5.2); Alkaline Phosphatase 121 U/L (35-105); Anion Gap 16.7 (5-19); Aspartate Amino Transferase 19 U/L (0-32); Blood Urea Nitrogen 13 mg/dL (8-23); C Reactive Protein 70.8 mg/L (0.0-4.9); Calcium 9.2 mg/dL (8.5-10.5); Carbon Dioxide 25 mmol/L (22-29); Chloride 99 mmol/L (98-107); Globulin 3.7 g/dL (1.3-4.6); Glomerular Filtration Rate 70.9 mL/min (90-130); Glucose 107 mg/dL (65-115); Osmolality Calculated 283 mOsm/kg (285-295); Potassium 4.7 mmol/L (3.5-5.1); Sodium 136 mmol/L (136-145); Total Bilirubin 0.3 mg/dL (0.15-1.2); Total Protein 7.6 g/dL (6.6-8.7)
== END 2024-07-20 12:18 | disposition home or self-care (01) ==
LOC: LAB 12:19
PROVIDERS: PCP Nurse Practitioner Family; Visit Provider Student in an Organized Health Care Education/Training Program
DX: I96 Gangrene, not elsewhere classified (principal); L89.214 Pressure ulcer of right hip, stage 4
CPT/HCPCS: 11042; 36415; 80053; 85025; 85651; 86140; 87070; 87176; 87205; A6219

== ENCOUNTER → 2024-08-17 13:00 | Outpatient (BNVA) | payer MEDICARE, OTHER, SELFPAY | PROVIDERS: PCP Nurse Practitioner Family; Visit Provider Thoracic Surgery (Cardiothoracic Vascular Surgery) | DX: I96 Gangrene, not elsewhere classified (principal); L89.214 Pressure ulcer of right hip, stage 4 | CPT/HCPCS: 97597; A6220 ==

== ENCOUNTER → 2024-09-13 15:30 | Outpatient (BNVA) | payer MEDICARE, OTHER, SELFPAY | PROVIDERS: PCP Nurse Practitioner Family; Visit Provider Student in an Organized Health Care Education/Training Program | DX: N39.0 Urinary tract infection, site not specified (principal); N13.5 Crossing vessel and stricture of ureter without hydronephrosis; Z96.0 Presence of urogenital implants | CPT/HCPCS: 99213 ==

== ENCOUNTER → 2024-09-14 12:54 | Outpatient (BNVA) | payer MEDICARE, OTHER, SELFPAY | PROVIDERS: PCP Nurse Practitioner Family; Visit Provider Thoracic Surgery (Cardiothoracic Vascular Surgery) | DX: I96 Gangrene, not elsewhere classified (principal); L89.214 Pressure ulcer of right hip, stage 4 | CPT/HCPCS: 97597; A6210; A6212 ==

== ENCOUNTER 2024-10-14 11:08 | Outpatient (CLI) | payer MEDICARE, OTHER, SELFPAY ==
--- NOTE | 2024-10-14 11:00 | MR_ITS ---
WS: [id number] MRI PELVIS WITH AND WITHOUT CONTRAST. COMPARISON: 06/24/2024, 02/23/2023 Multiplanar, multisequence imaging is performed with and without contrast. MultiHance 10 mL IV. History: Follow-up osteomyelitis. RIGHT hip removal. Prior interval resection of the RIGHT femoral head. Residual amputated site is now high riding with a superior and lateral dislocation and malalignment of the intertrochanteric line with respect to the acetabulum. There is extensive low signal surrounding the RIGHT acetabulum at the site of the hip resection. There is a soft tissue tract extending over the lateral pelvis contiguous to the greater trochanter of the RIGHT hip. There is soft tissue edema and enhancement overlying the adjacent soft tissues and the bone of the greater trochanter consistent with focal osteomyelitis. The previously described abscess along the tract is not identified. There is also enhancement within the soft tissues surrounding the RIGHT greater trochanter extending through the acetabulum at the site of the resected femoral head. No definite abscesses are identified. Muscle atrophy and fatty replacement of the RIGHT pelvis. Suprapubic catheter within nondistended bladder. No free fluid in the pelvis. MR/MR pelvis wo/w con [id number] IMPRESSION: 1. Continued enhancement consistent with cellulitis along the decubitus ulcer tract centered over the RIGHT greater trochanter. No abscess identified on toda y's exam. 2. There is enhancement in the lateral most RIGHT greater trochanter. The of i n the decubitus ulcer tract is contiguous with osteomyelitis of the greater tro chanter. Superficial osteomyelitis of the greater trochanter similar to the jamie or exam. No obvious progression. 3. Large amount of soft tissue enhancement surrounding the RIGHT greater troch anter at the site of the femoral head resection. Soft tissue enhancement extend s into the RIGHT acetabulum. Consistent with cellulitis. No abscess.
[2024-10-14] MEDS: gadobenate dimeglumine 20 mL vial IV (11:52)
[2024-10-14 12:37] LABS: Basophils % 0.5 %; Eosinophils # 0.2 10^3/uL (0.0-0.8); Hematocrit 41.4 % (36-47); Lymphocytes # 2.2 10^3/uL (0.8-4.8); Lymphocytes % 30.3 %; Mean Corpuscular HGB Conc 31.2 g/dL (30-55); Mean Corpuscular Hemoglobin 27.9 pg (27-33); Mean Corpuscular Volume 89.4 fl (85-98); Mean Platelet Volume 8.1 fL (7.4-10.4); Monocytes # 0.7 10^3/uL (0.2-0.9); Monocytes % 10.1 %; Neutrophils # 4.18 10^3/uL (1.8-7.7); Neutrophils % 56.8 %; Nucleated Red Blood Cells % 0 %; Platelet Count 374 10^3/cmm (157-399); Red Blood Count 4.63 10^6/uL (3.85-5.65); Red Cell Distribution Width 15.3 % (12.1-15.1); White Blood Count 7.36 10^3/uL (3.29-11.43)
[2024-10-14 12:53] LABS: Alanine Aminotransferase 9 U/L (0-33); Albumin Level 3.7 g/dL (3.5-5.2); Alkaline Phosphatase 125 U/L (35-105); Anion Gap 18.3 (5-19); Aspartate Amino Transferase 18 U/L (0-32); Blood Urea Nitrogen 11 mg/dL (8-23); Carbon Dioxide 22 mmol/L (22-29); Chloride 102 mmol/L (98-107); Globulin 3.8 g/dL (1.3-4.6); Glomerular Filtration Rate 54.8 mL/min (90-130); Glucose 89 mg/dL (65-115); Osmolality Calculated 285 mOsm/kg (285-295); Potassium 4.3 mmol/L (3.5-5.1); Sodium 138 mmol/L (136-145); Total Bilirubin 0.3 mg/dL (0.15-1.2); Total Protein 7.5 g/dL (6.6-8.7)
[2024-10-14 13:10] LABS: 25 Hydroxy Vitamin D 24 ng/mL (30-100); Vitamin B12 632 pg/mL (232-1245)
== END 2024-10-14 11:09 | disposition home or self-care (01) ==
PROVIDERS: PCP Nurse Practitioner Family; Visit Provider Student in an Organized Health Care Education/Training Program
DX: M86.651 Other chronic osteomyelitis, right thigh (principal); Z79.899 Other long term (current) drug therapy; R53.83 Other fatigue
CPT/HCPCS: 36415; 72197; 80053; 82306; 82607; 85025

== ENCOUNTER → 2024-10-19 12:58 | Outpatient (BNVA) | payer MEDICARE, OTHER, SELFPAY | PROVIDERS: PCP Nurse Practitioner Family; Visit Provider Thoracic Surgery (Cardiothoracic Vascular Surgery) | DX: I96 Gangrene, not elsewhere classified (principal); L89.214 Pressure ulcer of right hip, stage 4 | CPT/HCPCS: 97597; A6210; A6220; A6251 ==

== ENCOUNTER → 2024-10-25 10:42 | Outpatient (BNVA) | payer MEDICARE, OTHER, SELFPAY | PROVIDERS: PCP Nurse Practitioner Family; Visit Provider Student in an Organized Health Care Education/Training Program | DX: M79.89 Other specified soft tissue disorders (principal); N39.0 Urinary tract infection, site not specified; N13.5 Crossing vessel and stricture of ureter without hydronephrosis; Z96.0 Presence of urogenital implants | CPT/HCPCS: 36415; 80053; 85651; 86140; 99205 ==

== ENCOUNTER 2024-10-26 13:09 | Outpatient (CLI) | payer MEDICARE, OTHER, SELFPAY ==
--- NOTE | 2024-10-26 13:00 | USCV_ITS ---
Jericho Riveraquie Age: 69 Gender: F : 1955 Exam Date: 10/26/2024 13:20 Ordering Phys: Jud Mojica MD Technologist: [facility] Exam Location: [facility] [place]_ Indication: R/O DVT HISTORY: R/O DVT PROCEDURES: Venous duplex imaging was performed in bilateral lower extremities. The following venous structures were evaluated: common femoral vein, profunda vein, proximal portion of the greater saphenous vein, superficial femoral vein, and the popliteal vein. In addition, the posterior tibial and peroneal trunk were evaluated. FINDINGS: No evidence of DVT seen in any vessel visualized at this time. CONCLUSIONS No evidence of right lower extremity DVT. No evidence of left lower extremity DVT. Rafael Shankar MD (Electronically Signed) Final Date: 26 October 2024 16:51 S
== END 2024-10-26 13:10 | disposition home or self-care (01) ==
LOC: RAD 13:10
PROVIDERS: PCP Nurse Practitioner Family; Visit Provider Student in an Organized Health Care Education/Training Program
DX: M79.89 Other specified soft tissue disorders (principal)
CPT/HCPCS: 93970

== ENCOUNTER → 2024-11-16 12:59 | Outpatient (BNVA) | payer MEDICARE, OTHER, SELFPAY | PROVIDERS: PCP Nurse Practitioner Family; Visit Provider Thoracic Surgery (Cardiothoracic Vascular Surgery) | DX: I96 Gangrene, not elsewhere classified (principal); L89.214 Pressure ulcer of right hip, stage 4 | CPT/HCPCS: 97597; A6210 ==

== ENCOUNTER → 2024-12-13 11:10 | Outpatient (BNVA) | payer MEDICARE, OTHER, SELFPAY | PROVIDERS: PCP Nurse Practitioner Family; Referring Provider Student in an Organized Health Care Education/Training Program; Visit Provider Specialist | DX: R41.3 Other amnesia (principal) | CPT/HCPCS: 82542; 84439; 84443; 85651; 86038; 96116; 99205 ==

== ENCOUNTER → 2024-12-16 10:06 | Outpatient (BNVA) | payer MEDICARE, OTHER, SELFPAY | PROVIDERS: PCP Nurse Practitioner Family; Referring Provider Specialist; Visit Provider Specialist | DX: G93.40 Encephalopathy, unspecified (principal); G31.84 Mild cognitive impairment of uncertain or unknown etiology | CPT/HCPCS: 95819 ==

== ENCOUNTER 2024-12-21 14:05 | Outpatient (CLI) | payer MEDICARE, OTHER, SELFPAY ==
--- NOTE | 2024-12-21 15:00 | CT_ITS ---
WS: [email or web address] LDCT LUNG CANCER SCREENING TECHNIQUE: Noncontrast CT of the chest with coronal and sagittal reformatted images. CLINICAL INFORMATION: J43.8 - Other emphysema COMPARISON: None. DLP: 50.12 mGy.cm DIvol: Mean CTDIvol: 1.00 (mGy) All CT scans at [facility] use at least one of these dose optimization techniques: automated exposure control; mA and/or kV adjustment per patient size (includes targeted exams where dose is matched to clinical indication); or iterative reconstruction. FINDINGS: Subsegmental atelectasis RIGHT lower lobe. Noncalcified nodule RIGHT upper lobe near the apex measuring 3 mm. Subsegmental atelectasis RIGHT middle lobe. Noncalcified nodule LEFT upper lobe measuring 3 mm. Tiny noncalcified subpleural nodule LEFT lower lobe. No suspicious pulmonary parenchymal normalities. Elevation RIGHT hemidiaphragm. Normal caliber thoracic aorta. Aortic calcification. Coronary calcification no mediastinal or hilar lymphadenopathy. Tiny esophageal hiatal hernia. Mild thickening of the LEFT adrenal gland. RIGHT adrenal gland is normal. CT/CT lung screening [id number] IMPRESSION: LUNG-RADS: 2-Benign Appearance or Behavior FOLLOW UP: 12 Month: Continue annual screening with LDCT
--- NOTE | 2024-12-21 15:15 | MR_ITS ---
WS: [id number] MRI BRAIN WITHOUT CONTRAST HISTORY: G93.40 - Encephalopathy, unspecified COMPARISON: None available. TECHNIQUE: Diffusion imaging, multiplanar T1, T2 and FLAIR imaging obtained. No evidence for acute infarct or hemorrhage. Elizondo-white matter differentiation is normal. Mild bilateral cerebral and cerebellar atrophy. Scattered T2 and FLAIR signal hyperintensities in the supratentorial white matter from small vessel disease. No prior infarct. No hemorrhage. Mild bilateral hippocampal atrophy. Ventricles and extra-axial spaces are normal. No inferior displacement of cerebellar tonsils. The sella turcica and pituitary gland are unremarkable. Dural venous sinuses and [place] demonstrate no abnormality on this unenhanced studies. Paranasal sinuses: Clear. Mastoid air cells: Normal. Calvarium and scalp: Intact. MR/MR head wo con* [id number] IMPRESSION: 1. No acute infarct or hemorrhage. 2. Mild cerebral and cerebellar atrophy. 3. Mild bilateral hippocampal atrophy. 4. Mild small vessel ischemic type changes in the supratentorial white matter. No prior infarct.
== END 2024-12-21 14:06 | disposition home or self-care (01) ==
LOC: RAD 14:07
PROVIDERS: PCP Nurse Practitioner Family; Visit Provider Specialist
DX: Z12.2 Encounter for screening for malignant neoplasm of respiratory organs (principal); F17.210 Nicotine dependence, cigarettes, uncomplicated; G93.40 Encephalopathy, unspecified; G25.5 Other chorea; R41.3 Other amnesia; R53.1 Weakness; G03.9 Meningitis, unspecified; G80.1 Spastic diplegic cerebral palsy; J43.8 Other emphysema; G31.9 Degenerative disease of nervous system, unspecified; I67.82 Cerebral ischemia; J98.11 Atelectasis; R91.1 Solitary pulmonary nodule; I70.0 Atherosclerosis of aorta; J98.6 Disorders of diaphragm
CPT/HCPCS: 70551; 71271; 97597; A6210

== ENCOUNTER → 2024-12-28 15:55 | Outpatient (BNVA) | payer MEDICARE, OTHER, SELFPAY | PROVIDERS: PCP Nurse Practitioner Family; Visit Provider Specialist | DX: G93.40 Encephalopathy, unspecified (principal); G80.1 Spastic diplegic cerebral palsy; G95.9 Disease of spinal cord, unspecified; M54.12 Radiculopathy, cervical region; F03.90 Unspecified dementia, unspecified severity, without behavioral disturbance, psychotic disturbance, mood disturbance, and anxiety | CPT/HCPCS: 99215 ==

== ENCOUNTER → 2024-12-30 12:37 | Outpatient (BNVA) | payer MEDICARE, OTHER, SELFPAY | PROVIDERS: PCP Nurse Practitioner Family; Visit Provider Nurse Practitioner Family | DX: S73.005A Unspecified dislocation of left hip, initial encounter (principal); W19.XXXA Unspecified fall, initial encounter; M85.88 Other specified disorders of bone density and structure, other site; M85.48 Solitary bone cyst, other site; Z96.0 Presence of urogenital implants | CPT/HCPCS: 73502 ==

== ENCOUNTER → 2025-01-18 13:01 | Outpatient (BNVA) | payer MEDICARE, OTHER, SELFPAY | PROVIDERS: PCP Nurse Practitioner Family; Visit Provider Thoracic Surgery (Cardiothoracic Vascular Surgery) | DX: I96 Gangrene, not elsewhere classified (principal); L89.214 Pressure ulcer of right hip, stage 4 | CPT/HCPCS: 97597; A6210 ==

== ENCOUNTER → 2025-02-15 12:57 | Outpatient (BNVA) | payer MEDICARE, OTHER, SELFPAY | PROVIDERS: PCP Nurse Practitioner Family; Visit Provider Thoracic Surgery (Cardiothoracic Vascular Surgery) | DX: I96 Gangrene, not elsewhere classified (principal); L89.214 Pressure ulcer of right hip, stage 4 | CPT/HCPCS: 97597; A6219 ==

== ENCOUNTER → 2025-03-02 10:52 | Outpatient (BNVA) | payer MEDICARE, OTHER, SELFPAY | PROVIDERS: PCP Nurse Practitioner Family; Visit Provider Specialist | DX: G80.1 Spastic diplegic cerebral palsy (principal); F03.90 Unspecified dementia, unspecified severity, without behavioral disturbance, psychotic disturbance, mood disturbance, and anxiety; G93.40 Encephalopathy, unspecified; G95.9 Disease of spinal cord, unspecified; M54.12 Radiculopathy, cervical region | CPT/HCPCS: 64644; 99213; J0585; J9999 ==

== ENCOUNTER → 2025-03-28 13:14 | Outpatient (BNVA) | payer MEDICARE, OTHER, SELFPAY | PROVIDERS: PCP Nurse Practitioner Family; Visit Provider Thoracic Surgery (Cardiothoracic Vascular Surgery) | DX: I96 Gangrene, not elsewhere classified (principal); L89.214 Pressure ulcer of right hip, stage 4 | CPT/HCPCS: 97597 ==

== ENCOUNTER → 2025-04-05 14:23 | Outpatient (BNVA) | payer MEDICARE, OTHER, SELFPAY | PROVIDERS: PCP Nurse Practitioner Family; Visit Provider Nurse Practitioner Family | DX: R30.0 Dysuria (principal) | CPT/HCPCS: 81000; 87086 ==